=== PATIENT | male | born 1940 | race Caucasian/White ===

== ENCOUNTER 2024-04-30 21:43 | Inpatient (IN) | payer MEDICARE, OTHER, SELFPAY ==
[2024-04-30 15:28] VITALS: BP 138/68
[2024-04-30 16:05] LABS: % Basophils 0.3 % (0-2); % Eosinophils 5.5 % (0-6); % Immature Granulocytes 0.3 % (0-0.5); % Lymphocytes 24.1 % (20.5-51.1); % Monocytes 11.1 % (1.7-9.3); % Neutrophils 58.7 % (42.2-75.2); Absolute Eosinophils 0.3 10^3/uL (0-0.7); Absolute Lymphocytes 1.5 10^3/uL (1.2-3.4); Absolute Monocytes 0.7 10^3/uL (0.1-0.6); Absolute Neutrophils 3.6 10^3/uL (1.4-6.5); Hematocrit 25.8 % (39.0-52.0); Hemoglobin 9.5 g/dL (13.0-18.0); Mean Corp Hgb Conc. 36.8 g/dL (33.0-37.0); Mean Corpuscular Hgb 32.9 pg (27.0-31.0); Mean Corpuscular Volume 89.3 fL (80.0-94.0); Mean Platelet Volume 8.1 fL (7.4-10.4); Nucleated Red Blood Cells % 0 % (-); Platelet Count 166 10^3/uL (130-400); Red Blood Cell Count 2.89 10^6/uL (4.70-6.10); Red Cell Dist. Width 15.1 % (11.5-14.5); White Blood Cell Count 6.1 10^3/uL (4.8-10.8)
[2024-04-30 16:20] LABS: COVID-19 Antigen Negative (Negative)
[2024-04-30 16:21] LABS: ALT (SGPT) 13 U/L (0-50); AST (SGOT) 24 U/L (17-59); Albumin 4.1 g/dl (3.5-5.0); Alkaline Phosphatase 74 U/L (38-126); Blood Urea Nitrogen 27 mg/dl (9-20); Carbon Dioxide 24 mmol/L (22-30); Chloride 90 mmol/L (98-107); Glucose 116 mg/dl (70-99); Potassium 5.4 mmol/L (3.5-5.1); Sodium 125 mmol/L (135-145); Total Bilirubin 1.2 mg/dl (0.2-1.3); eGFR 39.02
[2024-04-30 16:35] LABS: NT-proBNP 3440 pg/ml; Troponin I 0.016 ng/ml
--- NOTE | 2024-04-30 18:30 | ED.GENMED ---
History of Present Illness
General
Chief Complaint: Weakness
Source: patient
Exam Limitations: none
Time Seen by Provider: 04/30/24 18:01
History of Present Illness
History of Present Illness:
83-year-old male with history of CHF, A-fib presents in referral from After noticing outpatient labs were abnormal. Patient was volume overloaded and they doubled his torsemide from 20 daily to 40 daily. He has been on this. They noticed his
weight going down symptoms improving however labs were drawn and he was told they were abnormal. Family was told his sodium was 121 earlier this week. No prior history of hyponatremia. Never been admitted to this hospital. In general he notes
weakness. He notes shortness of breath. He describes orthopnea. Daughter who does most of the translating states that his legs have increasing swelling since he stopped the double dose of torsemide.
Phy Exam
Physical Exam
Physical Exam:
General: Well-appearing male no acute respiratory distress
HEENT: Atraumatic
Heart: Regular rate and rhythm no murmurs
Lungs: Subtle wheeze at the base
Abdomen is soft
Extremities: Diffuse edema
Skin is warm no rash
Course
Orders/Labs/Results
Orders:
Orders
04/30/24 15:42
EKG [Electrocardiogram (*1)] Urgent
Reason for Study: Chest Pain
04/30/24 15:43
EKG- Treatment ONCE
04/30/24 15:54
CBC/With Diff [Complete Blood Count/With Diff] Urgent
CMP [Comprehensive Metabolic Panel] Urgent
COVID-19 Antigen Urgent
Source: Nasal Swab
Pro-BNP [NT-proBNP] Urgent
Serum Osmolality Urgent
Comment: ADD ON
Troponin I Urgent
04/30/24 18:24
CR Chest - 2 Views Urgent
Comment:
Reason For Exam: sob
04/30/24 18:34
Add On- LAB Urgent
Tests Added?: serum osmoality
04/30/24 20:26
Urine Sodium Urgent
Date Specimen was Collected: 04/30/24
Time Specimen was Collected: 20:23
Abnormal Lab Results
04/30/24
15:54
RBC 2.89 L 10^6/uL
(4.70-6.10)
Hgb 9.5 L g/dL
(13.0-18.0)
Hct 25.8 L %
(39.0-52.0)
MCH 32.9 H pg
(27.0-31.0)
RDW 15.1 H %
(11.5-14.5)
Absolute Monos (auto) 0.7 H 10^3/uL
(0.1-0.6)
Monocytes % 11.1 H %
(1.7-9.3)
Sodium 125 L mmol/L
(135-145)
Potassium 5.4 H mmol/L
(3.5-5.1)
Chloride 90 L mmol/L
(98-107)
BUN 27 H mg/dl
(9-20)
Creatinine 1.7 H mg/dL
(0.7-1.3)
Glucose 116 H mg/dl
(70-99)
Serum Osmolality 262 L mOsm/kg
(275-300)
04/30/24 15:54
04/30/24 15:54
Vital Signs
Initial and Last Documented VS:
Initial Vital Signs
Temp Pulse Resp BP Pulse Ox
98.2 F 68 19 138/68 99
04/30/24 15:28 04/30/24 15:28 04/30/24 15:28 04/30/24 15:28 04/30/24 15:28
Last Documented Vital Signs
Temp Pulse Resp BP Pulse Ox
98.2 F 68 19 138/68 99
04/30/24 15:28 04/30/24 15:28 04/30/24 15:28 04/30/24 15:28 04/30/24 15:28
MDM/Problems Addressed
Differential Diagnosis Includes:
Patient with fatigue shortness of breath and was told he had abnormal laboratory findings. Patient does appear volume overloaded. Question possible CHF. Sodium here is 125. No prior history of hyponatremia per the daughter. Will get chest
x-ray. Patient will need admission to hospital for volume overload status likely due to CHF and hyponatremia
Chronic conditions affecting care:
CKD
*Critical Care Note
Total Time (30-74mins, 75-104mins- exclusive of procedures): Not Applicable
ED Attending Note
-
Portions of this chart may have been created with voice recognition software.� Occasional wrong word or��sound alike� substitutions may have occurred due to the inherent limitations of voice recognition software.
Discharge Plan
Departure
Patient Disposition: Admit
Date of Disposition: 04/30/24
Time of Disposition: 20:38
Admit to: Telemetry
Presentation/result/management discussed w/ accepting MD/DO: Hospitalist
Discharge Problem:
Hyponatremia
Prescriptions:
No Action
hydralazine 10 mg tablet
20 mg PO BIDPRN PRN (Reason: sbp > 160)
torsemide 20 mg tablet
20 mg PO DAILY
ondansetron HCl 4 mg tablet
4 mg PO BIDPRN PRN (Reason: nausea/vomiting)
amlodipine 5 mg tablet
5 mg PO DAILY
Procrit 40,000 unit/mL solution
40,000 unit SC .Q2-3WEEKS
pantoprazole 40 mg tablet,delayed release (DR/EC)
40 mg PO DAILY
metoprolol succinate 25 mg tablet extended release 24 hr
25 mg PO BID
ketoconazole 2 % cream
1 applic TOPICAL BIDPRN PRN (Reason: feet)
fluticasone propionate 50 mcg/actuation spray,suspension
2 spray INTRANASAL BID
doxazosin 2 mg tablet
2 mg PO QPM
cholecalciferol (vitamin D3) [Vitamin D3] 25 mcg (1,000 unit) capsule
50 mcg PO DAILY
olmesartan 20 mg tablet
20 mg PO QPM
rosuvastatin 5 mg tablet
5 mg PO QPM
Atrovent HFA 17 mcg/actuation HFA aerosol inhaler
2 puff INHALATION R QPM
ranolazine 500 mg tablet extended release 12 hr
1,000 mg PO BID
Eliquis 2.5 mg tablet
2.5 mg PO BID
diclofenac sodium 1 % Gel
1 ea TOPICAL DAILYPRN PRN (Reason: topical pain)
Cranberry-Dmannose
1 tab PO QPM
sennosides [senna] 8.6 mg Tablet
17.2 mg PO HS
polyethylene glycol 3350 [Miralax] 17 gram Powder In Packet
17 g PO DAILYPRN PRN (Reason: constipation)
cyanocobalamin (vitamin B-12) 1,000 mcg Tablet
1,000 mcg PO DAILY
magnesium 200 mg Tablet
300 mg PO HS
melatonin 5 mg Tablet
5 mg PO HS
Soothe Lubricant 0.6-0.6 % Dropperette
1 drp ophthalmic (eye) BID
Rx Instructions:
both eyes
Walls Laxative
1 dose PO DAILYPRN PRN (Reason: constipation)
Referrals:
Vivian Wolfe MD [Family Provider] -
Interventions
Interventions:
*Risk Screen - Suicide Last Done: 04/30/24 18:00
*General Assessment Last Done: 04/30/24 18:00
*Neglect/Abuse Screening Last Done: 04/30/24 18:00
ED- Cardiac Assessment Last Done: 04/30/24 18:00
ED- Neurological Assessment Last Done: 04/30/24 18:00
ED- Pulmonary Assessment Last Done: 04/30/24 18:00
Discharge Date and Time
Print Language: UPPER SORBIAN
[2024-04-30 19:15] LABS: Osmolality Serum 262 mOsm/kg (275-300)
--- NOTE | 2024-04-30 20:48 | HPS.HSE ---
Addendum entered and electronically signed by Ernesto Rivera DO 04/30/24 22:15:
Patient seen and examined independently. Agree with findings and plan as set forth by VIRGINIA Kohli.
Patient is an 83y M with PMH significant for A-Fib, CHF and CKD who presents to ED at the direction of his Working Second Hand for evaluation of abnormal outpatient labs. History obtained from patient and family with family serving as print cutter.
Patient noted to have significant weight gain, evident edema, abdominal distention and orthopnea several weeks ago. He has been followed by Cardiology and Nephrology as an outpatient. One week ago - he took double doses of torsemide (40mg) -.
Daughter notes that he did lose weight during that span; however, he quickly regained all of this weight once he returned to his usual regimen.
Patient had outpatient labs done a few days ago for routine follow-up. Today they were advised by Cardiology to present immediately to the hospital - primarily due to low sodium.
Daughter states that his sodium is chronically in the low 130s. With recent weight gain and edema - it had been 127. On most recent labs it was 121 which prompted recommendation he present to the ED.
Daughter notes that patient has had N/V, dizziness and generalized weakness recently.
Ass:
Acute on Chronic HFpEF
Hypervolemic Hyponatremia
CKD III
Anemia of Chronic Disease
Benign Hypertension
ASCVD
Paroxysmal Atrial Fibrillation
GERD
BPH
Obesity
History of Renal Cell Carcinoma
Plan:
Admit for further evaluation and treatment.
Patient clearly volume overloaded with edema, abdominal distention, orthopnea, etc.
Change diuretic to IV route / BID for now and follow I/Os, daily weights, etc.
Monitor for changes in renal function during diuresis.
Cardiology / Nephrology evaluations during his stay.
Update Echo.
Follow for improvement in Na levels coincident with effective diuresis.
Continue other usual outpatient medications including Eliquis, metoprolol, etc.
Adjust meds as needed to allow effective diuresis / obtain adequate BP control / avoid renal injury or impairment.
Original Note:
Family Physician
-
Family Physician: Vivian Wolfe
Chief Complaint
-
sob
LE edema
weight gain
History of Present Illness
, atrial fib, CKD, chornic venous insufficiency, DVT, ileus, CAD, HTN,prostate ca, kidney ca, presented to us with worsening sob, orthopnea. he is not sleeping due to sob. gained 10-12lbs in one month. he gets blood works every two weeks. he was
noted to have low sodium. he takes torsemide 20mg every day. he was asked to take 40mg and 20mg on alternating days for past one week. his symptoms persisted. he was evaluated by cardiology, who recommended hospitalization. denied BATRES, but
complained of dizzy. denied chest pain. denied fever, chills, runny nose, congestion. but noted to have worsening of dry cough this week. stated abdominal discomfort and swelling. denied n/v/d. patient has suprapubic cath with decreased urine
output.
noted elevated BNP. chest x ray with no acute findings. na 125. Lasix in ER. admitting for further management.
Medical History
Past Medical History
Past Medical History: Reports Other
Additional Past Medical History:
History of prostate cancer
DVT
Chronic kidney disease stage IIIb
Diastolic heart failure
Coronary artery disease
Hypertension
GI bleed
Ileus
Gallstones
Diverticulosis
Hiatal hernia
H. pylori
Past Surgical History: Reports Other
Additional Past Surgical History:
Cardiac stent
Hernia repair
Nasal polypectomy
Appendectomy
Social History
Tobacco: Non-smoker
Alcohol: None
Drug: None
Personal:
Living: With Family
Family History
Family History: Not pertinent
Allergies / Home Medications
Allergies reflects when Allergies were last updated in [employer].
Home Medications with original date entered in [facility] [employer] [facility]
Allergy/Medication List:
Allergies
Allergy/AdvReac Type Severity Reaction Status Date / Time
No Known Allergies Allergy Verified 04/30/24 15:42
Home Medications
Cranberry-Dmannose 1 tab PO QPM 04/30/24
Walls Laxative 1 dose PO DAILYPRN PRN constipation 04/30/24
amlodipine 5 mg tablet 5 mg PO DAILY 04/30/24
apixaban 2.5 mg tablet (Eliquis) 2.5 mg PO BID 04/30/24
cholecalciferol (vitamin D3) 25 mcg (1,000 unit) capsule (Vitamin D3) 50 mcg PO DAILY 04/30/24
cyanocobalamin (vitamin B-12) 1,000 mcg tablet 1,000 mcg PO DAILY 04/30/24
diclofenac sodium 1 % topical gel 1 ea topical DAILYPRN PRN topical pain 04/30/24
doxazosin 2 mg tablet 2 mg PO QPM 04/30/24
epoetin gila 40,000 unit/mL injection solution (Procrit) 40,000 unit SC .Q2-3WEEKS 04/30/24
fluticasone propionate 50 mcg/actuation nasal spray,suspension 2 spray intranasal BID 04/30/24
hydralazine 10 mg tablet 20 mg PO BIDPRN PRN sbp > 160 04/30/24
ipratropium bromide 17 mcg/actuation HFA aerosol inhaler (Atrovent HFA) 2 puff inhalation R QPM 04/30/24
ketoconazole 2 % topical cream 1 applic topical BIDPRN PRN feet 04/30/24
magnesium 200 mg tablet 300 mg PO HS 04/30/24
melatonin 5 mg tablet 5 mg PO HS 04/30/24
metoprolol succinate 25 mg tablet,extended release 24 hr 25 mg PO BID 04/30/24
olmesartan 20 mg tablet 20 mg PO QPM 04/30/24
ondansetron HCl 4 mg tablet 4 mg PO BIDPRN PRN nausea/vomiting 04/30/24
pantoprazole 40 mg tablet,delayed release 40 mg PO DAILY 04/30/24
polyethylene glycol 3350 17 gram oral powder packet (Miralax) 17 g PO DAILYPRN PRN constipation 04/30/24
propylene glycol-glycerin 0.6 %-0.6 % eye drops in a dropperette (Soothe Lubricant) 1 drp ophthalmic (eye) BID 04/30/24
ranolazine 500 mg tablet,extended release,12 hr 1,000 mg PO BID 04/30/24
rosuvastatin 5 mg tablet 5 mg PO QPM 04/30/24
sennosides 8.6 mg tablet (senna) 17.2 mg PO HS 04/30/24
torsemide 20 mg tablet 20 mg PO DAILY 04/30/24
Review of Systems
-
Constitutional: Reports Weight Gain and Fatigue
EENT: Reports No Symptoms
Respiratory: Reports Cough and Trouble Breathing
Cardiac: Reports No Symptoms
Abdomen/GI: Reports Other (Distended abdominal)
: Reports Suprapubic Tube
Musculoskeletal: Reports Edema (Bilateral lower extremities)
Skin: Reports No Symptoms
Neurological: Reports Dizzy and Weakness
Endocrine: Reports No Symptoms
Hematologic/Lymphatic: Reports No Symptoms
Psych: Reports No Symptoms
Physical Exam
Vital Signs
Vital Signs
Temp Pulse Resp BP Pulse Ox
98.2 F 68 19 138/68 99
04/30/24 15:28 04/30/24 15:28 04/30/24 15:28 04/30/24 15:28 04/30/24 15:28
Physical Exam
General: Well Developed, Well Nourished and No Apparent Distress
HEENT: NormoCephalic, Moist mucous membranes and Atraumatic
Respiratory: Wheezes
Cardiac: S1/S2, Regular Rhythm and Peripheral Edema (Bilateral lower extremities edema, abdominal swelling); No Murmur or Rub
GI: Soft, Non Tender, Normal Bowel Sounds and Distended; No Organomegaly
Rectal: Deferred by Provider
Genito-urinary: Suprapubic Tube
Musculoskeletal: No Clubbing, No Cyanosis and Other (Bilateral lower extremities edema, swelling of abdomen)
Skin: No Rash
Neuro: AO x 3 and Nonfocal/grossly intact
Laboratory Results
-
04/30/24 15:54
04/30/24 15:54
Laboratory Results
Total Bilirubin 1.2 mg/dl (0.2-1.3) 04/30/24 15:54
AST 24 U/L (17-59) 04/30/24 15:54
ALT 13 U/L (0-50) 04/30/24 15:54
Alkaline Phosphatase 74 U/L (38-126) 04/30/24 15:54
Troponin I 0.016 ng/ml 04/30/24 15:54
Data Reviewed
-
Diagnostic Radiology: Report Reviewed by me
Lab Data: Labs Reviewed by me
Impression/Plan
-
#hyponatremia/hyperkalemia/i likely hypervolemic
# Chronic kidney disease stage IIIb
-na 125, k 5.4,cr 1.7
-fluid restriction
-diuretics
-BMp in a.m.
-serum osm 262
-urine na pending
-Nephrology consulted
#diastolic HF exacerbation
-Lasix 40 Mg IV twice a day
-strict I &O
-daily weight
-fluid restriction
-chest x ray with No acute cardiopulmonary process.
-[id number]
-Obtain echo
-Cardiology consulted
# Anemia of chronic disease
-Patient is receives Procrit as outpatient
-Hemoglobin 9.5
-No active bleeding
-Continue to monitor
# Essential hypertension
# History of coronary artery disease/cardiac stents
-Blood pressure stable
-Norvasc continued
-Ranexa continued
# Hyperlipidemia
-Statin continued
# Paroxysmal A-fib
-EKG with sinus rhythm with first-degree AV block, incomplete left bundle branch block
-Eliquis continued
-Metoprolol continued
# GERD
-PPI continued
# BPH
-Doxazosin continued
#hxt of kidney ca
-monitored by [facility].
# DVT prophylaxis
-Eliquis
# CODE STATUS
-DNR
[2024-04-30 21:00] VITALS: BP 120/55
[2024-04-30 21:35] LABS: Urine Sodium 41 mmol/L (30-90)
[2024-04-30] MEDS: LASIX 40 MG IV (21:37)
[2024-04-30 22:00] VITALS: BP 117/63
[2024-04-30 23:00] VITALS: BP 130/69
--- NOTE | 2024-04-30 23:00 | PTCARENOTE ---
Pt arrived to room 432-01. Pt AAOx3, VSS. Pt Kyrgyz speaking, daughter in room. Pt no c/o pain, SOB. Pt oriented to room, call rao placed within reach.
[2024-04-30] MEDS: MELATONIN 5 MG PO (23:26)
[2024-04-30] MEDS: SENOKOT 17.2 MG PO (23:26)
[2024-04-30 23:37] VITALS: BMI 34.0
[2024-05-01] VITALS (8 sets, daily range): BP systolic 110–135; BP diastolic 45–68; PULSE 56; O2SAT 97–98; BMI 33.2
[2024-05-01] MEDS: ATROVENT NEBULES INH ×2 (00:01→19:57)
[2024-05-01] MEDS: ATROVENT NEBULES 0.5 MG INH (00:29)
--- NOTE | 2024-05-01 07:39 | W.PN.HOSP.TC ---
Today's Communication/Plan
-
cont diuresis
daily weights I/O
trend Na
fluid restriction
Assessment / Plan
Assessment / Plan
Physical Exam
General: No acute distress. Appears comfortable at this time. Obese
HEENT: NormoCephalic, Moist mucous membranes and Atraumatic
Respiratory: Clear to auscultation
Cardiac: S1/S2, Regular Rhythm and Peripheral Edema (Bilateral lower extremities edema, abdominal swelling); No Murmur or Rub
GI: Soft, Non Tender, Normal Bowel Sounds and Distended; No Organomegaly
Genito-urinary: Suprapubic Tube
Musculoskeletal: Bilateral lower extremities edema
Skin: No Rash
Neuro: AO x 3 and Nonfocal/grossly intact
#hyponatremia/hyperkalemia/i likely hypervolemic
# Chronic kidney disease stage IIIb
-fluid restriction
-diuretics
#diastolic HF exacerbation
-Lasix 40 Mg IV twice a day
-strict I &O
-daily weight
-fluid restriction
-chest x ray with No acute cardiopulmonary process.
-[id number]
-ECHO appreciated
-Cardiology consult appreciated
# Anemia of chronic disease
-Patient is receives Procrit as outpatient
-H&H stable
-No active bleeding
-Continue to monitor
# Essential hypertension
# History of coronary artery disease/cardiac stents
-Blood pressure stable
-Norvasc continued
-Ranexa continued
# Hyperlipidemia
-Statin continued
# Paroxysmal A-fib
-EKG with sinus rhythm with first-degree AV block, incomplete left bundle branch block
-Eliquis continued
-Metoprolol continued
# GERD
-PPI continued
# BPH
-Doxazosin continued
#hxt of kidney ca
-monitored by [facility].
# DVT prophylaxis
-Eliquis
# CODE STATUS
-DNR
Daughter Mita updated
I spent a total of 50 minutes with the patient or on the floor. More than 50% of this time involved counseling and coordination of care.
Anticipated Discharge: 24 - 48 hours
Subjective/Interval History
-
Date of Service: May 01, 2024
No acute distress. Appears comfortable at this time. Wt loss noted since start of IV diuresis. Reports constipation. Interviewed with language line knife grinder [place]
Objective Data
-
Labs:
Laboratory Results
05/01/24
06:45
Sodium Pending
Potassium Pending
Chloride Pending
Carbon Dioxide Pending
BUN Pending
Creatinine Pending
Glucose Pending
Calcium Pending
Total Bilirubin Pending
AST Pending
ALT Pending
Alkaline Phosphatase Pending
Vital Signs:
Vital Signs
Temp Pulse Resp BP Pulse Ox
98.0 F 58 18 119/52 99
05/01/24 03:50 05/01/24 03:50 05/01/24 03:50 05/01/24 03:50 05/01/24 03:50
I&O
04/30/24 05/01/24 05/02/24
06:59 06:59 06:59
Intake Total 240 / 240
Output Total 1500 / 1500
Balance -1260 / -1260
[2024-05-01] MEDS: LASIX 40 MG IV ×2 (08:49→17:29)
[2024-05-01] MEDS: REFRESH EYE DROPS (PF) 1 DROPS OPHTH ×2 (08:50→21:05)
[2024-05-01] MEDS: PROTONIX 40 MG PO (08:50)
[2024-05-01] MEDS: NORVASC 5 MG PO (08:50)
[2024-05-01] MEDS: RANEXA EXTENDED RELEASE 1000 MG PO ×2 (08:50→21:05)
[2024-05-01] MEDS: TOPROL XL 25 MG PO ×2 (08:51→21:05)
[2024-05-01] MEDS: ELIQUIS 2.5 MG PO ×2 (08:51→21:04)
[2024-05-01 08:53] LABS: ALT (SGPT) 11 U/L (0-50); AST (SGOT) 21 U/L (17-59); Albumin 3.4 g/dl (3.5-5.0); Alkaline Phosphatase 62 U/L (38-126); Blood Urea Nitrogen 26 mg/dl (9-20); Calcium 8.9 mg/dl (8.4-10.2); Carbon Dioxide 26 mmol/L (22-30); Chloride 92 mmol/L (98-107); Direct Bilirubin 0.2 mg/dl (0.0-0.4); Estimated Creatinine Clearance 29 ml/min; Glucose 108 mg/dl (70-99); HDL Cholesterol 41 mg/dl; LDL Cholesterol, Calculated 58 mg/dl; Magnesium 2.4 mg/dl (1.6-2.3); Potassium 4.7 mmol/L (3.5-5.1); Sodium 128 mmol/L (135-145); Total Cholesterol 116 mg/dl (50-199); Total Protein 6.1 g/dl (6.3-8.2); Triglyceride 85 mg/dl (10-149); Very Low Density Lipoprotein 17 mg/dl (0-30); eGFR 36.43
[2024-05-01 09:19] LABS: TSH Reflex To Free T4 3.28 uIU/ml (0.47-4.68)
--- NOTE | 2024-05-01 10:56 | CON.CAR ---
Addendum entered and electronically signed by Lashell Plata DO 05/01/24 14:10:
I saw and examined the patient.
The Support Specialist's note was reviewed and I agree with the note.
Comment: Patient seen and examined with cardiac PA. Aden is an 83 year old male, [id number], with PMH of CAD w/ prior LCx stenting, chronic HFpEF, paroxysmal atrial fibrillation, HTN, HLD, CKD, GERD, and prostate cancer who presented to
[facility] for evaluation after being seen in the cardiology office 04/30/2024. He was seen for evaluation of worsening SOB, edema, and weight gain. He had recently been placed on lower dose of torsemide when his symptoms started developing. In the office.
there was concern that he was in acute heart failure and he was referred to the ER for further workup and management. In ER, he was found to have elevated proBNP and given worsening symptoms consistent with acute heart failure, he was admitted and
started on IV lasix. Cardiology consulted for evaluation.
General: No acute distress, AAOX3
Heart: Regular, positive S1/S2, 2/6 SM
Lungs: CTA b/l, negative wheezes/rales/rhonchi
Abd: Positive BS, NT/ND, neg rebound/rigidity/guarding
Ext: +edema
Plan:
-Presented from cardiology office with acute heart failure exacerbation.
-Diuresing with IV lasix 40mg BID.
-Weight down to 187 lbs, down 4lbs this admission.
-Creat overall stable at 1.8. Continue to follow with diuresis.
-EF preserved by prior echo at outside hospital as noted above. Repeat echo this admission.
-Known h/o CAD w/ prior stenting. Troponin negative.
-EKG reviewed, SR with 1st degree AV block.
-h/o paroxysmal atrial fibrillation noted. HR stable. Continue Eliquis for anticoagulation.
-Continue home amlodipine, doxazosin, Toprol, and Ranexa.
-Continue Crestor 5mg daily. LDL 58.
-Hyponatremia noted. Na up to 128 04/30.
Original Note:
Consultation
Consultation Request
Date/Time Consultation Requested: 04/30/2024
Date/Time Consultation Performed: 05/01/2024
Requesting Provider: Dr. Rivera
Performing Provider: Dr. Plata
Reason for Consultation: CHF
Medical History
-
History of Present Illness:
HPI: Aden is an 83 year old male with PMH of CAD w/ prior LCx stenting, chronic HFpEF, paroxysmal atrial fibrillation, HTN, HLD, CKD, GERD, and prostate cancer who presented to [facility] for evaluation after being seen in the cardiology office 04/30/2024.
He was seen for evaluation of worsening SOB, edema, and weight gain. He had recently been placed on lower dose of torsemide when his symptoms started developing. In the office. there was concern that he was in acute heart failure and he was referred
to the ER for further workup and management. In ER, he was found to have elevated proBNP and given worsening symptoms consistent with acute heart failure, he was admitted and started on IV lasix. Cardiology consulted for evaluation. He continues to
feel somewhat poorly this morning, but remains on room air.
PMH:
CAD
BMS to LCx 2011
Chronically occluded mid RCA by cath 01/14/2019
Chronic HFpEF
Paroxysmal atrial fibrillation
Chronic Eliquis anticoagulation
HTN
HLD
CKD 3b
Chronic anemia
GERD
h/o prostate cancer s/p XRT
Chronic suprapubic catheter
Past Medical History
Past Medical History: Other (In HPI)
Past Surgical History: Appendectomy, Cardiac (BMS to ) and Other (hernia repair, sinus surgery)
Social History
Tobacco: Non-Smoker
Alcohol: None
Drug: None
Personal:
Living: With Family
Employment: Retired
Family History
Family History: Reviewed & Not Pertinent
Allergies / Home Medications
Allergy/AdvReac Type Severity Reaction Status Date / Time
No Known Allergies Allergy Verified 04/30/24 15:42
�Medication �Instructions �Recorded �Confirmed �Type
Cranberry-Dmannose 1 tab PO QPM Supplement 04/30/24 04/30/24 History
Walls Laxative 1 dose PO DAILYPRN PRN constipation 04/30/24 04/30/24 History
amlodipine 5 mg tablet 5 mg PO DAILY Blood Pressure 04/30/24 04/30/24 History
apixaban 2.5 mg tablet (Eliquis) 2.5 mg PO BID Blood Clot 04/30/24 04/30/24 History
Prevention/Tx
cholecalciferol (vitamin D3) 25 50 mcg PO DAILY Supplement 04/30/24 04/30/24 History
mcg (1,000 unit) capsule (Vitamin
D3)
cyanocobalamin (vitamin B-12) 1,000 mcg PO DAILY Supplement 04/30/24 04/30/24 History
1,000 mcg tablet
diclofenac sodium 1 % topical gel 1 ea topical DAILYPRN PRN topical 04/30/24 04/30/24 History
pain
doxazosin 2 mg tablet 2 mg PO QPM BPH 04/30/24 04/30/24 History
epoetin gila 40,000 unit/mL 40,000 unit SC .Q2-3WEEKS RED 04/30/24 04/30/24 History
injection solution (Procrit) BLOOD CELLS
fluticasone propionate 50 2 spray intranasal BID 04/30/24 04/30/24 History
mcg/actuation nasal Lung/Breathing Issues
spray,suspension
hydralazine 10 mg tablet 20 mg PO BIDPRN PRN sbp > 160 04/30/24 04/30/24 History
ipratropium bromide 17 2 puff inhalation R QPM 04/30/24 04/30/24 History
mcg/actuation HFA aerosol inhaler Lung/Breathing Issues
(Atrovent HFA)
ketoconazole 2 % topical cream 1 applic topical BIDPRN PRN feet 04/30/24 04/30/24 History
magnesium 200 mg tablet 300 mg PO HS Electrolyte Repletion 04/30/24 04/30/24 History
melatonin 5 mg tablet 5 mg PO HS Sleep 04/30/24 04/30/24 History
metoprolol succinate 25 mg 25 mg PO BID Heart Failure 04/30/24 04/30/24 History
tablet,extended release 24 hr
olmesartan 20 mg tablet 20 mg PO QPM Blood Pressure 04/30/24 04/30/24 History
ondansetron HCl 4 mg tablet 4 mg PO BIDPRN PRN nausea/vomiting 04/30/24 04/30/24 History
pantoprazole 40 mg tablet,delayed 40 mg PO DAILY Gastrointestinal 04/30/24 04/30/24 History
release Issue
polyethylene glycol 3350 17 gram 17 g PO DAILYPRN PRN constipation 04/30/24 04/30/24 History
oral powder packet (Miralax)
propylene glycol-glycerin 0.6 1 drp ophthalmic (eye) BID Eye 04/30/24 04/30/24 History
%-0.6 % eye drops in a dropperette Condition
(Soothe Lubricant)
ranolazine 500 mg tablet,extended 1,000 mg PO BID chronic chest pain 04/30/24 04/30/24 History
release,12 hr
rosuvastatin 5 mg tablet 5 mg PO QPM High Cholesterol 04/30/24 04/30/24 History
sennosides 8.6 mg tablet (senna) 17.2 mg PO HS Constipation 04/30/24 04/30/24 History
torsemide 20 mg tablet 20 mg PO DAILY Blood Pressure 04/30/24 04/30/24 History
Review of Systems
-
History Source: Patient
All other systems: Negative unless noted
Physical Exam
Vital Signs
Temp Pulse Resp BP Pulse Ox
97.8 F 57 16 127/50 98
05/01/24 07:45 05/01/24 08:49 05/01/24 07:45 05/01/24 08:49 05/01/24 07:45
Lab Results
04/30/24 15:54
05/01/24 06:45
Troponin I 0.016 ng/ml 04/30/24 15:54
Ghd-A-Lbteqxqjqek Pept 3440 pg/ml 04/30/24 15:54
Physical Exam
General: Well Developed, Well Nourished and No Apparent Distress
HEENT: Normocephalic, Anicteric and Moist Mucous Membranes
Respiratory: Clear and Non Labored Respirations
Cardiac: S1/S2 and Regular Rhythm
Musculoskeletal: No Clubbing, No Cyanosis and No Edema
Skin: Warm and Dry
Neuro: AO x 3 and Nonfocal/Grossly Intact
Psych: Calm
Impression / Plan
-
PCP: Dr. Wolfe
Roustabout Supervisor: Dr. BE Diaz
Impression:
Presented with SOB, weight gain
Acute on chronic HFpEF
Hyponatremia
CAD
BMS to LCx 2011
Chronically occluded mid RCA by cath 01/14/2019
Paroxysmal atrial fibrillation
Chronic Eliquis anticoagulation
HTN
HLD
CKD 3b
Chronic anemia
GERD
h/o prostate cancer s/p XRT
Chronic suprapubic catheter
Echo 02/07/2023: EF 65%, mod cLVH, grade I DD, mild MR, trace TR
Echo 05/01/2024: Study pending
Plan:
-Presented from cardiology office with acute heart failure exacerbation.
-Diuresing with IV lasix 40mg BID.
-Weight down to 187 lbs, down 4lbs this admission.
-Creat overall stable at 1.8. Continue to follow with diuresis.
-EF preserved by prior echo at outside hospital as noted above. Repeat echo this admission.
-Known h/o CAD w/ prior stenting. Troponin negative.
-EKG reviewed, SR with 1st degree AV block.
-h/o paroxysmal atrial fibrillation noted. HR stable. Continue Eliquis for anticoagulation.
-Continue home amlodipine, doxazosin, Toprol, and Ranexa.
-Continue Crestor 5mg daily. LDL 58.
-Hyponatremia noted. Na up to 128 04/30.
HPI: Aden is an 83 year old male with PMH of CAD w/ prior LCx stenting, chronic HFpEF, paroxysmal atrial fibrillation, HTN, HLD, CKD, GERD, and prostate cancer who presented to [facility] for evaluation after being seen in the cardiology office 04/30/2024.
He was seen for evaluation of worsening SOB, edema, and weight gain. He had recently been placed on lower dose of torsemide when his symptoms started developing. In the office. there was concern that he was in acute heart failure and he was referred
to the ER for further workup and management. In ER, he was found to have elevated proBNP and given worsening symptoms consistent with acute heart failure, he was admitted and started on IV lasix. Cardiology consulted for evaluation. He continues to
feel somewhat poorly this morning, but remains on room air.
Data Reviewed
-
EKG: Tracing Personally Visualized and interpreted
Radiology: Report Reviewed by me
Labs: Labs Reviewed by me
Old Records: Reviewed
[2024-05-01] MEDS: MIRALAX 17 GRAMS PO (14:21)
--- NOTE | 2024-05-01 16:52 | CM ---
manager school reviewed patient's chart and met with patient and spoke with daughter by phone, patient lives with daughter in a 2 story home, patient is independent with adl's and uses a walker ambulation, patient daughter assists in home, patient has
been set up with home care services from [facility], per patient's daughter.
Pharmacy: [facility]
PCP: Dr. Wolfe
Plan; Home with daughter when stable.
[2024-05-01] MEDS: CARDURA 2 MG PO (17:59)
[2024-05-01] MEDS: CRESTOR 5 MG PO (17:59)
[2024-05-01] MEDS: SENOKOT-S 1 TABLET PO (21:04)
[2024-05-01] MEDS: MELATONIN 5 MG PO (21:06)
[2024-05-02 03:00] VITALS: BP 124/51
[2024-05-02 07:00] VITALS: BP 123/49
[2024-05-02 07:15] LABS: Hematocrit 22.5 % (39.0-52.0); Hemoglobin 8.3 g/dL (13.0-18.0); Mean Corp Hgb Conc. 36.9 g/dL (33.0-37.0); Mean Corpuscular Hgb 33.7 pg (27.0-31.0); Mean Corpuscular Volume 91.5 fL (80.0-94.0); Mean Platelet Volume 8.4 fL (7.4-10.4); Platelet Count 143 10^3/uL (130-400); Red Blood Cell Count 2.46 10^6/uL (4.70-6.10); Red Cell Dist. Width 14.6 % (11.5-14.5)
[2024-05-02 07:20] VITALS: BMI 33.3
--- NOTE | 2024-05-02 07:36 | W.PN.HOSP.TC ---
Today's Communication/Plan
-
Hold diuresis
Nephro eval
monitor renal function
Patient's own med procrit per patient/family preference
Iron supplementation
Assessment / Plan
Assessment / Plan
Physical Exam
General: No acute distress. Appears comfortable at this time. Obese
HEENT: NormoCephalic, Moist mucous membranes and Atraumatic
Respiratory: Clear to auscultation
Cardiac: S1/S2, Regular Rhythm and Peripheral Edema (Bilateral lower extremities edema, abdominal swelling); No Murmur or Rub
GI: Soft, Non Tender, Normal Bowel Sounds and Distended; No Organomegaly
Genito-urinary: Suprapubic Tube
Musculoskeletal: Bilateral lower extremities edema
Skin: No Rash
Neuro: AO x 3 and Nonfocal/grossly intact
#hyponatremia/hyperkalemia/i likely hypervolemic
# Chronic kidney disease stage IIIb
-fluid restriction
-diuretics
#diastolic HF exacerbation
-Lasix 40 Mg IV twice a day on hold d/t progressive worsening kidney function. Nephro eval requested
-strict I &O
-daily weight
-fluid restriction
-chest x ray with No acute cardiopulmonary process.
-[id number]
-ECHO appreciated
-Cardiology consult appreciated
#Iron deficiency
# Anemia of chronic disease
-Receives Procrit as outpatient last dose 2 wks ago typically receives for Hgb<10 (patient to receive dose here, Patient's own med per patient/family preference)
-No active bleeding
-Monitor H&H
# Essential hypertension
# History of coronary artery disease/cardiac stents
-Blood pressure stable
-Norvasc continued
-Ranexa continued
# Hyperlipidemia
-Statin continued
# Paroxysmal A-fib
-EKG with sinus rhythm with first-degree AV block, incomplete left bundle branch block
-Eliquis continued
-Metoprolol continued
# GERD
-PPI continued
# BPH
-Doxazosin continued
#hxt of kidney ca
-monitored by [facility] oncology.
# DVT prophylaxis
-Eliquis
# CODE STATUS
-DNR
Daughter Mita updated
I spent a total of 50 minutes with the patient or on the floor. More than 50% of this time involved counseling and coordination of care.
Anticipated Discharge: 24 - 48 hours
Subjective/Interval History
-
Date of Service: May 02, 2024
no acute distress. appears comfortable at this time. stable respiratory status on room air however subjective feelings shortness of breath persists. Constipation noted resolved.
Objective Data
-
Labs:
Laboratory Results
05/02/24
06:22
WBC 5.0
Hgb 8.3 L
Hct 22.5 L
Plt Count 143
Sodium Pending
Potassium Pending
Chloride Pending
Carbon Dioxide Pending
BUN Pending
Creatinine Pending
Glucose Pending
Calcium Pending
Vital Signs:
Vital Signs
Temp Pulse Resp BP Pulse Ox
97.9 F 69 18 124/51 96
05/02/24 03:00 05/02/24 03:00 05/02/24 03:00 05/02/24 03:00 05/02/24 03:00
I&O
05/01/24 05/02/24 05/03/24
06:59 06:59 06:59
Intake Total 240 / 240 790 / 790 240 / 240
Output Total 1500 / 1500 1525 / 1525 550 / 550
Balance -1260 / -1260 -735 / -735 -310 / -310
[2024-05-02 07:42] LABS: Blood Urea Nitrogen 30 mg/dl (9-20); Calcium 8.8 mg/dl (8.4-10.2); Carbon Dioxide 27 mmol/L (22-30); Chloride 92 mmol/L (98-107); Estimated Creatinine Clearance 26 ml/min; Glucose 110 mg/dl (70-99); Magnesium 2.3 mg/dl (1.6-2.3); Phosphorus 4.5 mg/dl (2.5-4.5); Potassium 4.8 mmol/L (3.5-5.1); Sodium 129 mmol/L (135-145)
[2024-05-02] MEDS: PROTONIX PO (09:34)
[2024-05-02] MEDS: ELIQUIS 2.5 MG PO ×2 (09:35→20:43)
[2024-05-02] MEDS: NORVASC 5 MG PO (09:35)
[2024-05-02] MEDS: RANEXA EXTENDED RELEASE 1000 MG PO (09:36)
[2024-05-02] MEDS: REFRESH EYE DROPS (PF) 1 DROPS OPHTH ×2 (09:36→20:43)
[2024-05-02] MEDS: TOPROL XL 25 MG PO ×2 (09:36→20:43)
[2024-05-02] MEDS: SENOKOT-S 1 TABLET PO ×2 (09:36→20:43)
[2024-05-02] MEDS: MIRALAX PO (09:37)
[2024-05-02] MEDS: LASIX 40 MG IV (09:37)
--- NOTE | 2024-05-02 10:01 | W.PN.CARDCBS ---
Addendum entered and electronically signed by Lashell Plata DO 05/02/24 13:52:
I saw and examined the patient.
The Tub Puller's note was reviewed and I agree with the note.
Comment: Patient seen and examined with cardiac PA. Called patient's daughter Mita through [employer] and had her on speaker phone to discuss presentation, hospital events and plan. Patient continues to feel fatigued, dizzy and short of breath.
No significant improvement in edema. Denies chest pain or pressure.
General: No acute distress, AAOX3
Heart: Regular, positive S1/S2, 2/6 SM
Lungs: Bronchovesicular breath sounds, decreased at bases with fine crackles
Abd: Obese, positive BS, NT/ND, neg rebound/rigidity/guarding
Ext: ++edema; lower extremity scar
Plan:
Acute on chronic heart failure with preserved ejection fraction
-proBNP 3440
-Unfortunately no significant improvement in symptoms with IV diuresis over 24 hours. Weight is largely unchanged, down only 3 pounds from admission now with worsening renal function
-Will hold IV Lasix today although still volume overloaded. Pending renal response may need right heart catheterization next week
-Patient does follow with nephrology as an outpatient, Dr. Montgomery. Will ask nephrology to become involved this admission
-Goal-directed medical therapy at this point limited by renal function
Acute on chronic renal insufficiency with history of prostate cancer status post radiation and a chronic suprapubic catheter
-Creatinine worse with attempt of diuresis
-Nephrology consult
-Will hold Ranexa given renal contraindication
-Will change rosuvastatin to atorvastatin secondary to renal insufficiency
Hyponatremia
-May need Samsca; recommend nephrology consult
Normocytic anemia
- Procrit as an outpatient
-Abnormal iron studies. IV iron and transfusions recommended, defer to primary
-Monitor H&H closely
History of coronary artery disease with prior bare-metal stent to circumflex artery in 2012 and a TCO of the mid RCA in 2019
-No chest pain suggestive of angina
-Continue beta-allison, statin
History of paroxysmal atrial fibrillation currently in sinus rhythm
-Continue metoprolol and renally dosed Eliquis
Discussed with hospitalist
Daughter Mita in agreement with plan
Original Note:
Today's Communication / Plan
-
Hold lasix w/ creat up to 2.0.
follow volume status
Continue amlodipine, toprol, ranexa, and doxazosin
Impression / Plan
-
PCP: Dr. Wolfe
Photofinishing Laboratory Worker: Dr. BE Diaz
Impression:
Presented with SOB, weight gain
Acute on chronic HFpEF
Hyponatremia
CAD
BMS to LCx 2011
Chronically occluded mid RCA by cath 01/14/2019
Paroxysmal atrial fibrillation
Chronic Eliquis anticoagulation
HTN
HLD
CKD 3b
Chronic anemia
GERD
h/o prostate cancer s/p XRT
Chronic suprapubic catheter
Echo 02/07/2023: EF 65%, mod cLVH, grade I DD, mild MR, trace TR
Echo 05/01/2024: EF 55%, mild cLVH, mild with peak/mean gradients 16/8 mmHg, mild TR, estimated PAP 30-35 mmHg
Plan:
-Presented from cardiology office with acute heart failure exacerbation.
-Diuresing with IV lasix 40mg BID. Creat bumped to 2.0. Hold lasix.
-Weight 188lbs, which is up 1 lb from yesterday, however weight 05/01 was bed scale weight and weight 05/02 is standing scale.
-Overall, weight is down at least 3lbs from admission.
-Echo 05/01 noted EF 55% with mild as noted above.
-Known h/o CAD w/ prior stenting. Troponin negative.
-h/o paroxysmal atrial fibrillation noted. HR stable. Continue Eliquis for anticoagulation.
-Continue home amlodipine, doxazosin, Toprol, and Ranexa.
-Continue Crestor 5mg daily. LDL 58.
HPI: Aden is an 83 year old male with PMH of CAD w/ prior LCx stenting, chronic HFpEF, paroxysmal atrial fibrillation, HTN, HLD, CKD, GERD, and prostate cancer who presented to [facility] for evaluation after being seen in the cardiology office 04/30/2024.
He was seen for evaluation of worsening SOB, edema, and weight gain. He had recently been placed on lower dose of torsemide when his symptoms started developing. In the office. there was concern that he was in acute heart failure and he was referred
to the ER for further workup and management. In ER, he was found to have elevated proBNP and given worsening symptoms consistent with acute heart failure, he was admitted and started on IV lasix. Cardiology consulted for evaluation. He continues to
feel somewhat poorly this morning, but remains on room air.
Progress Note - Photofinishing Laboratory Worker
Subjective
Date of Service: May 02, 2024
Objective
Labs:
05/02/24 06:22
05/02/24 06:22
Labs
Hgb 8.3 g/dL (13.0-18.0) L 05/02/24 06:22
Hct 22.5 % (39.0-52.0) L 05/02/24 06:22
Plt Count 143 10^3/uL (130-400) 05/02/24 06:22
Sodium 129 mmol/L (135-145) L 05/02/24 06:22
Potassium 4.8 mmol/L (3.5-5.1) 05/02/24 06:22
BUN 30 mg/dl (9-20) H 05/02/24 06:22
Creatinine 2.0 mg/dL (0.7-1.3) H 05/02/24 06:22
Glucose 110 mg/dl (70-99) H 05/02/24 06:22
Troponins
04/30/24
15:54
Troponin I 0.016
Vital Signs and I&O:
Vital Signs
Temp Pulse Resp BP Pulse Ox
97.6 F 74 18 123/49 96
05/02/24 07:00 05/02/24 07:00 05/02/24 07:00 05/02/24 07:00 05/02/24 07:00
Vital Signs
Temp Pulse Resp BP Pulse Ox
97.6 F 74 18 123/49 96
05/02/24 07:00 05/02/24 07:00 05/02/24 07:00 05/02/24 07:00 05/02/24 07:00
Intake & Output
04/30/24 05/01/24 05/02/24 05/03/24
06:59 06:59 06:59 06:59
Intake Total 240 / 240 790 / 790 240 / 240
Output Total 1500 / 1500 1525 / 1525 550 / 550
Balance -1260 / -1260 -735 / -735 -310 / -310
Physical Exam
Physical Exam
GEN: No distress, awake, alert, oriented x3
HEENT: supple, anicteric, mmm
LUNGS: CTA b/l, no wheezes/rales
CV: Reg, S1/S2, 2/6 syst murmur
EXT: No clubbing or cyanosis. +1 edema b/l LE
NEURO: Gross non-focal
SKIN: Warm, dry, no rash
[2024-05-02] MEDS: NON-FORMULARY ITEM 1 UNIT PO (12:03)
[2024-05-02 12:59] LABS: Iron 41 ug/dl (49-181)
[2024-05-02 13:08] LABS: Percent Saturation 19 % (20-50); Total Iron Binding Capacity 206 ug/dl (261-462)
[2024-05-02 13:40] LABS: Hematocrit 24.9 % (39.0-52.0); Hemoglobin 9.1 g/dL (13.0-18.0)
--- NOTE | 2024-05-02 14:34 | W.CON.NEPH ---
Consultation
-
Date/Time Consultation Requested: 05/02/2024 13:45PM
Date/Time Consultation Performed: 05/02/2024 2:34PM
Requesting Provider: Sandip Vergara
Performing Provider: Dejah Vargas
Reason for Consultation: MARIE
Medical History
-
Chief Complaint: MARIE
History of Present Illness:
Mr. Franklin is an 83YOM with a PMH of CAD w/ prior LCx stenting, chronic HFpEF, pAfib, HTN, DLD, CKD (bl Cr around 1.5), GERD, and prostate cancer (s/p radiation and chronic suprapubic catheter), anemia (on procrit as outpatient) who presented
to the hospital for SOB. He was struggling with insomnia due to SOB. He gained 10-12 lbs. He was sent to the hospital by cardiology. They have attempted IV diuresis but with minimal response and Cr elevated to 2, so held today.
Nephrology is consulted for slightly worsening kidney function. Cr baseline appears to be around 1.4-1.7, elevated to 2 in the setting of diuresis. He does follow with Dr. Montgomery as an outpatient.
Past Medical History
History of prostate cancer (on tamsulosin)
DVT
Chronic kidney disease stage IIIb
Diastolic heart failure
Coronary artery disease
Hypertension ( on amlodipine, hydralazine)
GI bleed
Ileus
Gallstones
Diverticulosis
Hiatal hernia
H. pylori
Past Medical History: Other
Past Surgical History: Other (Cardiac stent Hernia repair Nasal polypectomy Appendectomy)
Social History
Tobacco: Non-Smoker
Alcohol: None
Drug: None
Personal:
Living: With Family
Family History
Family History: Not Pertinent
Allergies / Home Medications
Allergy/AdvReac Type Severity Reaction Status Date / Time
No Known Allergies Allergy Verified 04/30/24 15:42
�Medication �Instructions �Recorded �Confirmed �Type
Cranberry-Dmannose 1 tab PO QPM Supplement 04/30/24 04/30/24 History
Walls Laxative 1 dose PO DAILYPRN PRN constipation 04/30/24 04/30/24 History
amlodipine 5 mg tablet 5 mg PO DAILY Blood Pressure 04/30/24 04/30/24 History
apixaban 2.5 mg tablet (Eliquis) 2.5 mg PO BID Blood Clot 04/30/24 04/30/24 History
Prevention/Tx
cholecalciferol (vitamin D3) 25 50 mcg PO DAILY Supplement 04/30/24 04/30/24 History
mcg (1,000 unit) capsule (Vitamin
D3)
cyanocobalamin (vitamin B-12) 1,000 mcg PO DAILY Supplement 04/30/24 04/30/24 History
1,000 mcg tablet
diclofenac sodium 1 % topical gel 1 ea topical DAILYPRN PRN topical 04/30/24 04/30/24 History
pain
doxazosin 2 mg tablet 2 mg PO QPM BPH 04/30/24 04/30/24 History
epoetin gila 40,000 unit/mL 40,000 unit SC .Q2-3WEEKS RED 04/30/24 04/30/24 History
injection solution (Procrit) BLOOD CELLS
fluticasone propionate 50 2 spray intranasal BID 04/30/24 04/30/24 History
mcg/actuation nasal Lung/Breathing Issues
spray,suspension
hydralazine 10 mg tablet 20 mg PO BIDPRN PRN sbp > 160 04/30/24 04/30/24 History
ipratropium bromide 17 2 puff inhalation R QPM 04/30/24 04/30/24 History
mcg/actuation HFA aerosol inhaler Lung/Breathing Issues
(Atrovent HFA)
ketoconazole 2 % topical cream 1 applic topical BIDPRN PRN feet 04/30/24 04/30/24 History
magnesium 200 mg tablet 300 mg PO HS Electrolyte Repletion 04/30/24 04/30/24 History
melatonin 5 mg tablet 5 mg PO HS Sleep 04/30/24 04/30/24 History
metoprolol succinate 25 mg 25 mg PO BID Heart Failure 04/30/24 04/30/24 History
tablet,extended release 24 hr
olmesartan 20 mg tablet 20 mg PO QPM Blood Pressure 04/30/24 04/30/24 History
ondansetron HCl 4 mg tablet 4 mg PO BIDPRN PRN nausea/vomiting 04/30/24 04/30/24 History
pantoprazole 40 mg tablet,delayed 40 mg PO DAILY Gastrointestinal 04/30/24 04/30/24 History
release Issue
polyethylene glycol 3350 17 gram 17 g PO DAILYPRN PRN constipation 04/30/24 04/30/24 History
oral powder packet (Miralax)
propylene glycol-glycerin 0.6 1 drp ophthalmic (eye) BID Eye 04/30/24 04/30/24 History
%-0.6 % eye drops in a dropperette Condition
(Soothe Lubricant)
ranolazine 500 mg tablet,extended 1,000 mg PO BID chronic chest pain 04/30/24 04/30/24 History
release,12 hr
rosuvastatin 5 mg tablet 5 mg PO QPM High Cholesterol 04/30/24 04/30/24 History
sennosides 8.6 mg tablet (senna) 17.2 mg PO HS Constipation 04/30/24 04/30/24 History
torsemide 20 mg tablet 20 mg PO DAILY Blood Pressure 04/30/24 04/30/24 History
Review of Systems
-
History Source: Patient
Constitutional: Weight Gain
Respiratory: Cough and Trouble Breathing
Physical Exam
Vital Signs
Vital Signs
Temp Pulse Resp BP Pulse Ox
97.6 F 74 18 123/49 96
05/02/24 07:00 05/02/24 07:00 05/02/24 07:00 05/02/24 07:00 05/02/24 07:00
Lab Results
WBC 5.0 10^3/uL (4.8-10.8) 05/02/24 06:22
RBC 2.46 10^6/uL (4.70-6.10) L 05/02/24 06:22
Hgb 9.1 g/dL (13.0-18.0) L 05/02/24 13:13
Hct 24.9 % (39.0-52.0) L 05/02/24 13:13
Plt Count 143 10^3/uL (130-400) 05/02/24 06:22
Sodium 129 mmol/L (135-145) L 05/02/24 06:22
Potassium 4.8 mmol/L (3.5-5.1) 05/02/24 06:22
Chloride 92 mmol/L (98-107) L 05/02/24 06:22
Carbon Dioxide 27 mmol/L (22-30) 05/02/24 06:22
BUN 30 mg/dl (9-20) H 05/02/24 06:22
Creatinine 2.0 mg/dL (0.7-1.3) H 05/02/24 06:22
eGFR 32.10 05/02/24 06:22
Glucose 110 mg/dl (70-99) H 05/02/24 06:22
Calcium 8.8 mg/dl (8.4-10.2) 05/02/24 06:22
Phosphorus 4.5 mg/dl (2.5-4.5) 05/02/24 06:22
Dpb-M-Lbciqfusbtg Pept 3440 pg/ml 04/30/24 15:54
Albumin 3.4 g/dl (3.5-5.0) L 05/01/24 06:45
Physical Exam
General: AOx3, No Distress and Nontoxic
HEENT: PERRL, EOMI, Anicteric, Conjunctivae Clear, Ear/Nose Intact, Hearing Normal, Neck Supple, Trachea Midline and No Thyromegaly
Respiratory: Wheezes and Crackels
Cardiac: S1/S2, Regular Rate/Rhythm and Edema
Breast: N/A
Abdomen: Soft, Nontender, Nondistended, Normal Bowel Sounds and No Hepatosplenomegaly
Rectal: Deferred by Provider
Genito-urinary: No Costovertebral Tender
Musculoskeletal: No Clubbing, No Cyanosis and Edema
Skin: No Rash, Warm, Dry, No Clubbing, No Cyanosis, Normal Turgor, No Bruising and Other (erythema of bilateral lower extremities)
Neuro: Nonfocal/Grossly Intact
Hematologic/Lymphatic: No Cervical Lymphadenopathy
Psych: Mood/afflect pleasant, Insight/judgement good and Appropriate
Data Reviewed
-
Radiology: Image Personally Visualized and interpreted (No acute cardiopulmonary process.)
Labs: Labs Reviewed by me, Discussed with Physician and Discussed with Patient
Old Records: Reviewed
Assessment/Plan
-
Assessment:
MARIE on CKD 3B (bl Cr 1.4-1.7)
hyponatremia
CHF exacerbation
Anemia
pAFib
GERD
Plan:
MARIE on CKD
- Cr slightly elevated from baseline, likely in the setting of diuresis/cardiorenal
- obtain UA
- could consider restarting diuretics GABRIELA as patient is severely overloaded
- may need RHC to better direct diuresis
- might need inotropes to assist in diuresis
Hyponatremia
- obtain Uosm and Keila
- okay for one dose of samsca today
[2024-05-02 14:48] LABS: Folate 6.1 ng/ml (2.76-20); Vitamin B12 622 pg/ml (239-931)
[2024-05-02] MEDS: LIPITOR 10 MG PO (14:53)
[2024-05-02 15:28] VITALS: BP 106/46
[2024-05-02] MEDS: FERRLECIT 110 MG IV (15:35)
[2024-05-02] MEDS: CARDURA 2 MG PO (17:22)
[2024-05-02] MEDS: SAMSCA 7.5 MG PO (17:22)
[2024-05-02 18:18] LABS: Urine Albumin 2+ (Neg - Trace); Urine Bilirubin Negative (Negative); Urine Character Slightly Cloudy (Clear); Urine Color Yellow; Urine Glucose Negative (Negative); Urine Ketone Negative (Negative); Urine Leukocyte 2+ (Negative); Urine Nitrite Negative (Negative); Urine Occult Blood 4+ (Negative); Urine Specific Gravity 1.015 (<1.030); Urine Urobilinogen Negative (Neg - 1+)
[2024-05-02 18:24] LABS: Urine Bacteria Many (Negative); Urine Red Blood Cell 26-30 /HPF (0-2); Urine White Cell 60-70 /HPF (0-5)
[2024-05-02] MEDS: NON-FORMULARY ITEM 40000 UNIT SC (18:29)
[2024-05-02 18:34] LABS: Osmolality Urine 330 mOsm/kg (300-900)
[2024-05-02 18:39] LABS: Urine Sodium 22 mmol/L (30-90)
[2024-05-02 19:00] VITALS: BP 117/52
[2024-05-02] MEDS: ATROVENT NEBULES 0.5 MG INH (20:06)
[2024-05-02] MEDS: MELATONIN 5 MG PO (22:35)
[2024-05-02 23:00] VITALS: BP 121/64
[2024-05-03] VITALS (8 sets, daily range): BP systolic 112–132; BP diastolic 45–65; BMI 33.3
--- NOTE | 2024-05-03 07:34 | W.PN.HOSP.TC ---
Today's Communication/Plan
-
transfer to IVU closer monitoring high risk situation Heart Failure worsening kidney function
lasix gtt as per cardio nephro
monitor renal function Na
Monitor H&H
Assessment / Plan
Assessment / Plan
Physical Exam
General: No acute distress. Appears comfortable at this time. Obese
HEENT: NormoCephalic, Moist mucous membranes and Atraumatic
Respiratory: Clear to auscultation
Cardiac: S1/S2, Regular Rhythm and Peripheral Edema (Bilateral lower extremities edema, abdominal swelling); No Murmur or Rub
GI: Soft, Non Tender, Normal Bowel Sounds and Distended; No Organomegaly
Genito-urinary: Suprapubic Tube
Musculoskeletal: Bilateral lower extremities edema +2
Skin: No Rash
Neuro: AO x 3 and Nonfocal/grossly intact
#hyponatremia/hyperkalemia/i likely hypervolemic
# Chronic kidney disease stage IIIb
-fluid restriction
-diuretics
-samsca prn as per Nephro
-Na since improved
#diastolic HF exacerbation
-Lasix 40 Mg IV twice a day held d/t progressive worsening kidney function.
-Kidney function however continued to worsen
-Suspected cardiorenal syndrome, as per discussion with Nephro and Cardiology patient to start Lasix gtt, transfer to IVU for closer monitoring high risk situation
-strict I &O
-daily weight
-fluid restriction
-chest x ray with No acute cardiopulmonary process.
-[id number]
-ECHO appreciated EF 55% no significant valve abn's
-Cardiology consult appreciated
#Iron deficiency
# Anemia of chronic disease
-Receives Procrit as outpatient last dose 2 wks ago typically receives for Hgb<10 (patient received dose here 05/02/24)
-No active bleeding
-Monitor H&H, transfusion if Hgb <8 given cardiac history
# Essential hypertension
# History of coronary artery disease/cardiac stents
-Blood pressure stable
-Norvasc continued
-Ranexa on hold d/t worsening kidney function
# Hyperlipidemia
-Statin continued
# Paroxysmal A-fib
-EKG with sinus rhythm with first-degree AV block, incomplete left bundle branch block
-Eliquis continued
-Metoprolol continued
# GERD
-PPI continued
# BPH
-Doxazosin continued
#hxt of kidney ca
-monitored by [facility] oncology.
# DVT prophylaxis
-Eliquis
# CODE STATUS
-DNR
Daughter Mita updated
I spent a total of 50 minutes with the patient or on the floor. More than 50% of this time involved counseling and coordination of care.
Anticipated Discharge: > 48 hours
Subjective/Interval History
-
Date of Service: May 03, 2024
reports self-limited episode headache lightheadedness. Exertional dyspnea persists though stable respiratory status on room air at rest.
Objective Data
-
Labs:
Laboratory Results
05/03/24
07:23
WBC Pending
Hgb Pending
Hct Pending
Plt Count Pending
Sodium Pending
Potassium Pending
Chloride Pending
Carbon Dioxide Pending
BUN Pending
Creatinine Pending
Glucose Pending
Calcium Pending
Vital Signs:
Vital Signs
Temp Pulse Resp BP Pulse Ox
98.4 F 72 18 114/45 96
05/03/24 03:00 05/03/24 03:00 05/03/24 03:00 05/03/24 03:00 05/03/24 03:00
I&O
05/02/24 05/03/24 05/04/24
06:59 06:59 06:59
Intake Total 790 / 790 240 / 240 240 / 240
Output Total 1525 / 1525 550 / 550 1999 / 1999
Balance -735 / -735 -310 / -310 -1760 / -1760
[2024-05-03 08:33] LABS: Hematocrit 23.2 % (39.0-52.0); Hemoglobin 8.4 g/dL (13.0-18.0); Mean Corp Hgb Conc. 36.2 g/dL (33.0-37.0); Mean Corpuscular Hgb 32.7 pg (27.0-31.0); Mean Corpuscular Volume 90.3 fL (80.0-94.0); Mean Platelet Volume 8.4 fL (7.4-10.4); Platelet Count 156 10^3/uL (130-400); Red Blood Cell Count 2.57 10^6/uL (4.70-6.10); Red Cell Dist. Width 14.5 % (11.5-14.5); White Blood Cell Count 3.6 10^3/uL (4.8-10.8)
[2024-05-03 08:36] LABS: Blood Urea Nitrogen 35 mg/dl (9-20); Carbon Dioxide 26 mmol/L (22-30); Chloride 95 mmol/L (98-107); Estimated Creatinine Clearance 21 ml/min; Glucose 98 mg/dl (70-99); Magnesium 2.5 mg/dl (1.6-2.3); Phosphorus 4.8 mg/dl (2.5-4.5); Potassium 5.1 mmol/L (3.5-5.1); Sodium 130 mmol/L (135-145); eGFR 24.56
[2024-05-03] MEDS: SENOKOT-S 1 TABLET PO ×2 (09:02→19:51)
[2024-05-03] MEDS: TOPROL XL 25 MG PO ×2 (09:04→19:50)
[2024-05-03] MEDS: REFRESH EYE DROPS (PF) 1 DROPS OPHTH ×2 (09:05→19:51)
[2024-05-03] MEDS: ELIQUIS 2.5 MG PO ×2 (09:05→19:50)
[2024-05-03] MEDS: NORVASC 5 MG PO (09:05)
[2024-05-03] MEDS: NON-FORMULARY ITEM 1 UNIT PO (09:06)
[2024-05-03] MEDS: MIRALAX PO (09:12)
--- NOTE | 2024-05-03 12:40 | W.PN.NEPH.PH ---
Today's Communication / Plan
-
- lasix gtt
Assessment/Plan
-
Assessment:
MARIE on CKD 3B (bl Cr 1.4-1.7)
hyponatremia
CHF exacerbation
Anemia
pAFib
GERD
Plan:
MARIE on CKD
- Cr slightly elevated from baseline, likely in the setting of diuresis/cardiorenal
- UA with blood and protein (Juarez is in place), appears to be contaminated sample
- restart on lasix gtt today, will need to closely monitor kidney function
- transfer to IVU for closer monitoring
- may need RHC to better direct diuresis
- might need inotropes to assist in diuresis
Hyponatremia
- indicative of likely hypervolemic hyponatremia
- trialed samsca with improvement in Na to 130
-
-
Date of Service: May 03, 2024
CC / HPI / ROS
-
Chief Complaint:
MARIE, hyponatremia
History of Present Illness:
Na 130, rian 125
Cr 2.5, bl 1.4-1.6
Review of Systems:
feelign sob
Labs
-
Labs:
WBC 3.6 10^3/uL (4.8-10.8) L 05/03/24 07:23
RBC 2.57 10^6/uL (4.70-6.10) L 05/03/24 07:23
Hgb 8.4 g/dL (13.0-18.0) L 05/03/24 07:23
Hct 23.2 % (39.0-52.0) L 05/03/24 07:23
Plt Count 156 10^3/uL (130-400) 05/03/24 07:23
eGFR 24.56 05/03/24 07:23
Phosphorus 4.8 mg/dl (2.5-4.5) H 05/03/24 07:23
Egd-G-Yorurdiwxko Pept 3440 pg/ml 04/30/24 15:54
Albumin 3.4 g/dl (3.5-5.0) L 05/01/24 06:45
Physical Exam
-
Vital Signs:
Vital Signs
Temp Pulse Resp BP Pulse Ox
97.7 F 67 16 114/50 99
05/03/24 11:22 05/03/24 11:22 05/03/24 11:22 05/03/24 11:22 05/03/24 11:22
Cardiovascular:: Regular rate and rhythm
Respiratory:: Bilateral: Coarse
Lung Excursion:: Normal
Abdomen:: Nontender and Soft
Bowel Sounds:: Normal
Extremity Edema:: +2: Bilateral:
Juarez Catheter: Yes
[2024-05-03] MEDS: FERRLECIT 110 MG IV (13:13)
[2024-05-03] MEDS: LASIX 80 MG IV (13:30)
--- NOTE | 2024-05-03 13:49 | W.PN.CARDCBS ---
Today's Communication / Plan
-
Transfer to IVU
Lasix drip with close monitoring of basic metabolic profile
Will hold amlodipine
Impression / Plan
-
PCP: Dr. Wolfe
Brim Molder: Dr. BE Diaz
Impression:
Presented with SOB, weight gain
Acute on chronic HFpEF
Hyponatremia
CAD
BMS to LCx 2011
Chronically occluded mid RCA by cath 01/14/2019
Paroxysmal atrial fibrillation
Chronic Eliquis anticoagulation
HTN
HLD
CKD 3b
Chronic anemia
GERD
h/o prostate cancer s/p XRT
Chronic suprapubic catheter
Echo 02/07/2023: EF 65%, mod cLVH, grade I DD, mild MR, trace TR
Echo 05/01/2024: EF 55%, mild cLVH, mild with peak/mean gradients 16/8 mmHg, mild TR, estimated PAP 30-35 mmHg
Plan:
Acute on chronic heart failure with preserved ejection fraction
-proBNP 3440
-Unfortunately no significant improvement in symptoms with IV diuresis with increasing creatinine despite holding Lasix last 24 hours
-Case discussed with nephrology
-Will transfer to IVU
-Trial of Lasix drip with close following of basic metabolic profile
-Pending response can consider right heart catheterization next week
-Patient does follow with nephrology as an outpatient, Dr. Montgomery. Will ask nephrology to become involved this admission
-Goal-directed medical therapy at this point limited by renal function
Acute on chronic renal insufficiency with history of prostate cancer status post radiation and a chronic suprapubic catheter
-Appreciate nephrology input
-IV Lasix drip
-Monitor renal function electrolytes closely
-Will stop Ranexa given renal contraindication
-Change rosuvastatin to atorvastatin secondary to renal insufficiency
Hyponatremia
-Sodium is improved after Samsca.
-Follow closely with IV Lasix
-Nephrology following
Normocytic anemia
-Status post IV iron
-Monitor H&H
History of coronary artery disease with prior bare-metal stent to circumflex artery in 2012 and a TCO of the mid RCA in 2019
-No chest pain suggestive of angina
-Continue beta-allison, statin
History of paroxysmal atrial fibrillation currently in sinus rhythm
-Continue metoprolol and renally dosed Eliquis
Discussed with hospitalist and nephrology
Daughter Mita in agreement with plan
HPI: Aden is an 83 year old male with PMH of CAD w/ prior LCx stenting, chronic HFpEF, paroxysmal atrial fibrillation, HTN, HLD, CKD, GERD, and prostate cancer who presented to [facility] for evaluation after being seen in the cardiology office 04/30/2024.
He was seen for evaluation of worsening SOB, edema, and weight gain. He had recently been placed on lower dose of torsemide when his symptoms started developing. In the office. there was concern that he was in acute heart failure and he was referred
to the ER for further workup and management. In ER, he was found to have elevated proBNP and given worsening symptoms consistent with acute heart failure, he was admitted and started on IV lasix. Cardiology consulted for evaluation. He continues to
feel somewhat poorly this morning, but remains on room air.
Progress Note - Brim Molder
Subjective
Date of Service: May 03, 2024
Seen and examined sitting out of bed to chair. Patient interviewed with in room counter clerk line and spoke with counter clerk [phone] Terry. Patient continues to feel short of breath and has dizziness. No chest pain or pressure. He is aware of plan
and all questions were answered
Objective
Labs:
05/03/24 07:23
Labs
Hgb 8.4 g/dL (13.0-18.0) L 05/03/24 07:23
Hct 23.2 % (39.0-52.0) L 05/03/24 07:23
Plt Count 156 10^3/uL (130-400) 05/03/24 07:23
Sodium 130 mmol/L (135-145) L 05/03/24 07:23
Potassium 5.1 mmol/L (3.5-5.1) 05/03/24 07:23
BUN 35 mg/dl (9-20) H 05/03/24 07:23
Creatinine 2.5 mg/dL (0.7-1.3) H 05/03/24 07:23
Glucose 98 mg/dl (70-99) 05/03/24 07:23
Troponins
04/30/24
15:54
Troponin I 0.016
Vital Signs and I&O:
Vital Signs
Temp Pulse Resp BP Pulse Ox
97.7 F 67 16 116/53 99
05/03/24 11:22 05/03/24 11:22 05/03/24 11:22 05/03/24 13:30 05/03/24 11:22
Vital Signs
Temp Pulse Resp BP Pulse Ox
97.7 F 67 16 116/53 99
05/03/24 11:22 05/03/24 11:22 05/03/24 11:22 05/03/24 13:30 05/03/24 11:22
Intake & Output
05/01/24 05/02/24 05/03/24 05/04/24
06:59 06:59 06:59 06:59
Intake Total 240 / 240 790 / 790 240 / 240 240 / 240
Output Total 1500 / 1500 1525 / 1525 550 / 550 1999 / 1999
Balance -1260 / -1260 -735 / -735 -310 / -310 -1760 / -1760
Physical Exam
Physical Exam
General: No acute distress, AAOX3
Heart: Regular, positive S1/S2, 2/6 SM
Lungs: Bronchovesicular breath sounds, decreased at bases with fine crackles
Abd: Obese, positive BS, NT/ND, neg rebound/rigidity/guarding
Ext: ++edema; lower extremity scar
--- NOTE | 2024-05-03 14:52 | TRANSFER ---
Patient transported to IVU in wheelchair with belongings and situated in [id number]. Report given to Loly in IVU. Patient arrived safely.
[2024-05-03] MEDS: LASIX 50 IV (14:56)
[2024-05-03] MEDS: FLUSH (NSS) 1 FLUSH IV (14:56)
--- NOTE | 2024-05-03 15:05 | PTCARENOTE ---
Received the patient from [facility] in a wheelchair. The patient is aaao3, vital signs are stable, NSR with a 1st degree AVB noted on the monitor. He is [place]ian speaking. His suprapubic catheter is draining slightly cloudy yellow urine. He complained of
abdominal discomfort and rates it a 3/10 on scale. His abdomen is round, distended and firm. He has a small BM that was formed on arrival. He stated that yesterday his stools were loose. I started his Lasix gtt to run at 2ml/hr. I oriented him to
his room. His call rao is within reach.
[2024-05-03] MEDS: CARDURA 2 MG PO (17:30)
[2024-05-03] MEDS: LIPITOR 10 MG PO (17:30)
[2024-05-03] MEDS: ATROVENT NEBULES 0.5 MG INH (18:02)
[2024-05-03 21:43] LABS: Blood Urea Nitrogen 41 mg/dl (9-20); Calcium 9.3 mg/dl (8.4-10.2); Carbon Dioxide 22 mmol/L (22-30); Chloride 93 mmol/L (98-107); Estimated Creatinine Clearance 22 ml/min; Glucose 191 mg/dl (70-99); Sodium 131 mmol/L (135-145)
[2024-05-03] MEDS: MELATONIN 5 MG PO (22:27)
[2024-05-04] VITALS (12 sets, daily range): BP systolic 101–130; BP diastolic 48–66; PULSE 87; BMI 32.2
--- NOTE | 2024-05-04 02:05 | PTCARENOTE ---
Rec'd pt at change of shift on TELE monitor with pt in NSR and 1st AV block and VSS (see flowchart). Pt AAOx3 and denied any pain or discomfort. Pt used aircraft armorer to communicate with RN and staff. Pt with lasix gtt infusing at 2mL's per hour. Pt
resting with call rao in reach.
[2024-05-04 03:56] LABS: Hematocrit 23.8 % (39.0-52.0); Hemoglobin 8.7 g/dL (13.0-18.0); Mean Corp Hgb Conc. 36.6 g/dL (33.0-37.0); Mean Corpuscular Hgb 32.7 pg (27.0-31.0); Mean Corpuscular Volume 89.5 fL (80.0-94.0); Mean Platelet Volume 7.8 fL (7.4-10.4); Platelet Count 140 10^3/uL (130-400); Red Blood Cell Count 2.66 10^6/uL (4.70-6.10); Red Cell Dist. Width 14.5 % (11.5-14.5); White Blood Cell Count 4.2 10^3/uL (4.8-10.8)
[2024-05-04] MEDS: LASIX 50 IV (04:08)
[2024-05-04 04:17] LABS: Blood Urea Nitrogen 43 mg/dl (9-20); Calcium 9.1 mg/dl (8.4-10.2); Carbon Dioxide 24 mmol/L (22-30); Chloride 95 mmol/L (98-107); Estimated Creatinine Clearance 22 ml/min; Glucose 114 mg/dl (70-99); Magnesium 2.4 mg/dl (1.6-2.3); Phosphorus 5.4 mg/dl (2.5-4.5); Potassium 4.4 mmol/L (3.5-5.1); Sodium 132 mmol/L (135-145); eGFR 27.15
--- NOTE | 2024-05-04 07:36 | W.PN.HOSP.TC ---
Today's Communication/Plan
-
lasix gtt as per cardio Nephro
daily weights I/O
check repeat CXR persistent subjective dyspnea though stable respiratory status on room air
Monitor Renal Function H&H
Assessment / Plan
Assessment / Plan
Physical Exam
General: No acute distress. Appears comfortable at this time. Obese
HEENT: NormoCephalic, Moist mucous membranes and Atraumatic
Respiratory: Clear to auscultation
Cardiac: S1/S2, Regular Rhythm; No Murmur or Rub
GI: Soft, Non Tender, Normal Bowel Sounds and Distended; No Organomegaly
Genito-urinary: Suprapubic Tube
Musculoskeletal: Bilateral lower extremities edema +1
Skin: No Rash
Neuro: AO x 3 and Nonfocal/grossly intact
83M afib CHF CKD HTN Chronic Venous insuff DVT ileus CAD HTN Prostate Kidney Ca here for acute on chronic HFpEF
#hyponatremia/hyperkalemia/i likely hypervolemic
# Chronic kidney disease stage IIIb
-fluid restriction
-diuretics
-samsca prn as per Nephro
-Na since improved
#Acute on Chronic HFpEF
#diastolic HF exacerbation
Suspected cardiorenal syndrome
Kidney function continued to worsen despite hold on Lasix
started on lasix gtt (cont) transferred to IVU for closer monitoring high risk situation
-strict I &O
-daily weight
-fluid restriction
-04/30 chest x ray with No acute cardiopulmonary process.
-[id number]
-ECHO appreciated EF 55% no significant valve abn's
-Cardiology consult appreciated
#Continues to endorse subjective feelings SOB though stable respiratory status room air
#small pleural effusion noted on ECHO
check repeat CXR 05/04
#Iron deficiency
# Anemia of chronic disease
-Receives Procrit as outpatient last dose 2 wks ago typically receives for Hgb<10 (patient received dose here 05/02/24)
-No active bleeding
-Monitor H&H, transfusion if Hgb <8 given cardiac history
-IV iron supplementation x3, start oral supplementation tomorrow.
# Essential hypertension
# History of coronary artery disease/cardiac stents
-Blood pressure stable
-Norvasc held to allow room for more aggressive diuresis
-Ranexa on hold d/t worsening kidney function
# Hyperlipidemia
-Statin continued
# Paroxysmal A-fib
-EKG with sinus rhythm with first-degree AV block, incomplete left bundle branch block
-Eliquis continued
-Metoprolol continued
# GERD
-PPI continued
# BPH
-Doxazosin continued
#hxt of kidney ca
-monitored by [facility] oncology.
# DVT prophylaxis
-Eliquis
# CODE STATUS
-DNR
Discussed with patient (via language line Togolese mathematics instructor) and patient's Daughter Mita
I spent a total of 58 minutes with the patient or on the floor. More than 50% of this time involved counseling and coordination of care.
Anticipated Discharge: 24 - 48 hours
Subjective/Interval History
-
Date of Service: May 04, 2024
Reports lightheadedness headache on sitting up self-limited. Continues to report feeling short of breath. Respiratory status otherwise stable of room air. Interviewed with language line Togolese mathematics instructor assistance
Objective Data
-
Labs:
Laboratory Results
05/03/24 05/04/24
21:08 03:41
WBC 4.2 L
Hgb 8.7 L
Hct 23.8 L
Plt Count 140
Sodium 131 L 132 L
Potassium 5.0 4.4
Chloride 93 L 95 L
Carbon Dioxide 22 24
BUN 41 H 43 H
Creatinine 2.4 H 2.3 H
Glucose 191 H 114 H
Calcium 9.3 9.1
Vital Signs:
Vital Signs
Temp Pulse Resp BP Pulse Ox
98.3 F 69 18 101/52 95
05/04/24 07:06 05/04/24 05:00 05/04/24 07:06 05/04/24 03:31 05/04/24 07:06
I&O
05/03/24 05/04/24 05/05/24
06:59 06:59 06:59
Intake Total 240 / 240 384 / 384
Output Total 550 / 550 5025 / 5025
Balance -310 / -310 -4641 / -4641
--- NOTE | 2024-05-04 09:02 | W.PN.CARDCBS ---
Addendum entered and electronically signed by Lashell Plata DO 05/04/24 11:06:
I saw and examined the patient.
The Joint Sealer's note was reviewed and I agree with the note.
Comment: Patient seen and examined. Utilized language line and spoke with Nikia certified court interpreter #[id number]. Patient offers no new complaints still reporting dizziness and overall weakness. No chest pain or pressure.
General: No acute distress, AAOX3
Heart: Regular, positive S1/S2, 2/6 SM
Lungs: Bronchovesicular breath sounds, decreased at bases with fine crackles
Abd: Obese, positive BS, NT/ND, neg rebound/rigidity/guarding
Ext: +edema; lower extremity scar
Plan:
Acute on chronic heart failure with preserved ejection fraction
-proBNP 3440
-Unfortunately no significant improvement in symptoms with IV diuresis with increasing creatinine despite holding Lasix last 24 hours
-Case discussed with nephrology yesterday and transferred to the IVU for IV Lasix drip
-So far tolerating well with weights improved 7 pounds overnight and creatinine stable
-Close monitoring basic metabolic profiles for creatinine and electrolytes. Continue daily weights.
-Patient does follow with nephrology as an outpatient, Dr. Montgomery. Will ask nephrology to become involved this admission
-Goal-directed medical therapy at this point limited by renal function
Acute on chronic renal insufficiency with history of prostate cancer status post radiation and a chronic suprapubic catheter
-Appreciate nephrology input
-Continue IV Lasix drip
-Monitor renal function electrolytes closely
-Will stop Ranexa given renal contraindication
-Change rosuvastatin to atorvastatin secondary to renal insufficiency
Hyponatremia
-Sodium is improved after Samsca.
-Follow closely with IV Lasix
-Nephrology following
Normocytic anemia
-Status post IV iron
-Monitor H&H
History of coronary artery disease with prior bare-metal stent to circumflex artery in 2012 and a TCO of the mid RCA in 2019
-No chest pain suggestive of angina
-Continue beta-allison, statin
History of paroxysmal atrial fibrillation currently in sinus rhythm
-Continue metoprolol and renally dosed Eliquis
Original Note:
Today's Communication / Plan
-
Continue lasix gtt
Creat improving
Follow electrolytes
Impression / Plan
-
PCP: Dr. Wolfe
Health Analyst: Dr. BE Diaz
Impression:
Presented with SOB, weight gain
Acute on chronic HFpEF
Hyponatremia
CAD
BMS to LCx 2011
Chronically occluded mid RCA by cath 01/14/2019
Paroxysmal atrial fibrillation
Chronic Eliquis anticoagulation
HTN
HLD
CKD 3b
Chronic anemia
GERD
h/o prostate cancer s/p XRT
Chronic suprapubic catheter
Echo 02/07/2023: EF 65%, mod cLVH, grade I DD, mild MR, trace TR
Echo 05/01/2024: EF 55%, mild cLVH, mild with peak/mean gradients 16/8 mmHg, mild TR, estimated PAP 30-35 mmHg
Plan:
-Presented from cardiology office with acute heart failure exacerbation.
-Initially attempted diuresis with IV lasix 40mg BID, however as he was not responding with rising creat, started on Lasix gtt 05/03.
-Weight down 7lbs overnight, down to 181 lbs and creat improving, down slightly to 2.3.
-Echo 05/01 noted EF 55% with mild as noted above.
-Known h/o CAD w/ prior stenting. Troponin negative.
-h/o paroxysmal atrial fibrillation noted. HR stable. Continue Eliquis for anticoagulation.
-Continue home amlodipine, doxazosin, and Toprol. Ranexa stopped due to renal contraindication.
-Crestor switched to atorvastatin given renal insufficiency. LDL 58.
HPI: Lev is an 83 year old male with PMH of CAD w/ prior LCx stenting, chronic HFpEF, paroxysmal atrial fibrillation, HTN, HLD, CKD, GERD, and prostate cancer who presented to [facility] for evaluation after being seen in the cardiology office 04/30/2024.
He was seen for evaluation of worsening SOB, edema, and weight gain. He had recently been placed on lower dose of torsemide when his symptoms started developing. In the office. there was concern that he was in acute heart failure and he was referred
to the ER for further workup and management. In ER, he was found to have elevated proBNP and given worsening symptoms consistent with acute heart failure, he was admitted and started on IV lasix. Cardiology consulted for evaluation. He continues to
feel somewhat poorly this morning, but remains on room air.
Progress Note - Health Analyst
Subjective
Date of Service: May 04, 2024
Improving, still somewhat tired/fatigued.
Objective
Labs:
05/04/24 03:41
Labs
Hgb 8.7 g/dL (13.0-18.0) L 05/04/24 03:41
Hct 23.8 % (39.0-52.0) L 05/04/24 03:41
Plt Count 140 10^3/uL (130-400) 05/04/24 03:41
Sodium 132 mmol/L (135-145) L 05/04/24 03:41
Potassium 4.4 mmol/L (3.5-5.1) 05/04/24 03:41
BUN 43 mg/dl (9-20) H 05/04/24 03:41
Creatinine 2.3 mg/dL (0.7-1.3) H 05/04/24 03:41
Glucose 114 mg/dl (70-99) H 05/04/24 03:41
Vital Signs and I&O:
Vital Signs
Temp Pulse Resp BP Pulse Ox
98.3 F 72 18 111/48 95
05/04/24 07:06 05/04/24 07:05 05/04/24 07:06 05/04/24 07:05 05/04/24 07:06
Vital Signs
Temp Pulse Resp BP Pulse Ox
98.3 F 72 18 111/48 95
05/04/24 07:06 05/04/24 07:05 05/04/24 07:06 05/04/24 07:05 05/04/24 07:06
Intake & Output
05/02/24 05/03/24 05/04/24 05/05/24
06:59 06:59 06:59 06:59
Intake Total 790 / 790 240 / 240 384 / 384
Output Total 1525 / 1525 550 / 550 5025 / 5025
Balance -735 / -735 -310 / -310 -4641 / -4641
Physical Exam
Physical Exam
GEN: No distress, awake, alert, oriented x3
HEENT: supple, anicteric, mmm
LUNGS: few crackles at b/l bases, no wheezes
CV: Reg, S1/S2, 2/6 syst murmur
EXT: No clubbing or cyanosis +1 edema
NEURO: Gross non-focal
SKIN: Warm, dry, no rash
[2024-05-04] MEDS: NON-FORMULARY ITEM 1 UNIT PO (09:19)
[2024-05-04] MEDS: MIRALAX PO ×2 (09:19→09:26)
[2024-05-04] MEDS: ELIQUIS 2.5 MG PO ×2 (09:20→20:23)
[2024-05-04] MEDS: SENOKOT-S 1 TABLET PO ×2 (09:20→20:23)
[2024-05-04] MEDS: TOPROL XL 25 MG PO ×2 (09:20→20:24)
[2024-05-04] MEDS: FLUSH (NSS) 2 FLUSH IV ×2 (09:21→13:35)
[2024-05-04] MEDS: REFRESH EYE DROPS (PF) 1 DROPS OPHTH ×2 (09:21→20:23)
--- NOTE | 2024-05-04 09:35 | PTCARENOTE ---
Patient oob for breakfast. NSR with a 1st AVB noted on the monitor. Vital signs are stable. Clear lungs BL. Lasix gtt running at 2ml/hr. Clear yellow urine from suprapubic catheter. Juarez care completed.
--- NOTE | 2024-05-04 10:33 | W.PN.NEPH.PH ---
Today's Communication / Plan
-
diurese
Assessment/Plan
-
Assessment:
MARIE on CKD 3B (bl Cr 1.4-1.7)
hyponatremia
CHF exacerbation
Anemia
pAFib
GERD
Plan:
follow BMP
continue lasix gtt
no samsca needed today
replete K prn
-
-
Date of Service: May 04, 2024
CC / HPI / ROS
-
Chief Complaint:
MARIE, hyponatremia
History of Present Illness:
Na low stable at 132
K controlled 4.4
MARIE/Cr stable at 2.3
Hgb stable at 8.7
diuresing well with lasix gtt for decompensated HF
Review of Systems:
no CP/sob
c/o leg discomfort
Labs
-
Labs:
WBC 4.2 10^3/uL (4.8-10.8) L 05/04/24 03:41
RBC 2.66 10^6/uL (4.70-6.10) L 05/04/24 03:41
Hgb 8.7 g/dL (13.0-18.0) L 05/04/24 03:41
Hct 23.8 % (39.0-52.0) L 05/04/24 03:41
Plt Count 140 10^3/uL (130-400) 05/04/24 03:41
eGFR 27.15 05/04/24 03:41
Phosphorus 5.4 mg/dl (2.5-4.5) H 05/04/24 03:41
Yek-N-Tzlxktjqcbl Pept 3440 pg/ml 04/30/24 15:54
Albumin 3.4 g/dl (3.5-5.0) L 05/01/24 06:45
Physical Exam
-
Vital Signs:
Vital Signs
Temp Pulse Resp BP Pulse Ox
98.3 F 72 18 111/48 95
05/04/24 07:06 05/04/24 07:05 05/04/24 07:06 05/04/24 07:05 05/04/24 07:06
Cardiovascular:: Regular rate and rhythm
Respiratory:: Bilateral: Coarse and Bilateral: Rales
Lung Excursion:: Normal
Abdomen:: Nontender and Soft
Bowel Sounds:: Normal
Extremity Edema:: +2: Bilateral:
--- NOTE | 2024-05-04 12:56 | CM ---
Chart reviewed. Patient is independent of ADLS, lives with his in a 2 [address], ambulates with a RW and has a supportive daughter who helps. Patient receives Home Care Services through [facility]. Patient's daughter is not interested in
VN at this time. She said patient is frequently going to doctors appointments, so no need for VN. Plan is for the patient to return home. CM to follow
[2024-05-04 13:01] LABS: Blood Urea Nitrogen 44 mg/dl (9-20); Calcium 9.3 mg/dl (8.4-10.2); Carbon Dioxide 27 mmol/L (22-30); Chloride 93 mmol/L (98-107); Estimated Creatinine Clearance 22 ml/min; Glucose 139 mg/dl (70-99); Potassium 4.2 mmol/L (3.5-5.1); Sodium 133 mmol/L (135-145); eGFR 27.15
[2024-05-04] MEDS: FERRLECIT 110 MG IV (13:34)
[2024-05-04] MEDS: CARDURA 2 MG PO (17:24)
[2024-05-04] MEDS: LIPITOR 10 MG PO (17:24)
--- NOTE | 2024-05-04 18:18 | PTCARENOTE ---
The patient's daughter, Catarina Reese (who is a nurse) is asking if the gatekeeper and the hospitalist can call her at [phone] tomorrow. She is very concerned with his kidney functions, particularly his BUN and GFR. Will pass on to night
shift RN to pass on to day shift nurse tomorrow.
[2024-05-04] MEDS: ATROVENT NEBULES 0.5 MG INH (19:17)
[2024-05-04 20:49] LABS: Blood Urea Nitrogen 44 mg/dl (9-20); Calcium 9.4 mg/dl (8.4-10.2); Carbon Dioxide 25 mmol/L (22-30); Chloride 92 mmol/L (98-107); Estimated Creatinine Clearance 20 ml/min; Glucose 174 mg/dl (70-99); Potassium 4.3 mmol/L (3.5-5.1); Sodium 132 mmol/L (135-145); eGFR 23.43
[2024-05-04] MEDS: MELATONIN 5 MG PO (22:00)
[2024-05-05] VITALS (10 sets, daily range): BP systolic 92–119; BP diastolic 48–71; BMI 31.9
[2024-05-05] MEDS: LASIX 50 IV (04:16)
[2024-05-05 04:49] LABS: Hematocrit 25.1 % (39.0-52.0); Hemoglobin 9.2 g/dL (13.0-18.0); Mean Corp Hgb Conc. 36.7 g/dL (33.0-37.0); Mean Corpuscular Hgb 33.2 pg (27.0-31.0); Mean Corpuscular Volume 90.6 fL (80.0-94.0); Mean Platelet Volume 8.4 fL (7.4-10.4); Platelet Count 154 10^3/uL (130-400); Red Blood Cell Count 2.77 10^6/uL (4.70-6.10); Red Cell Dist. Width 14.3 % (11.5-14.5); White Blood Cell Count 4.9 10^3/uL (4.8-10.8)
[2024-05-05 05:06] LABS: Blood Urea Nitrogen 45 mg/dl (9-20); Calcium 9.2 mg/dl (8.4-10.2); Carbon Dioxide 29 mmol/L (22-30); Chloride 94 mmol/L (98-107); Estimated Creatinine Clearance 20 ml/min; Glucose 113 mg/dl (70-99); Magnesium 2.1 mg/dl (1.6-2.3); Phosphorus 5.4 mg/dl (2.5-4.5); Potassium 3.9 mmol/L (3.5-5.1); Sodium 135 mmol/L (135-145); eGFR 24.56
--- NOTE | 2024-05-05 05:16 | PTCARENOTE ---
Rec'd pt at change of shift. Pt AAOx3, on TELE monitor in NSR with first degree HB, and VSS. IV Lasix currently infusing at 2ml per hour. Pt denies any pain. Pt agree to comply with fluid intake restriction and resting with call rao in reach.
--- NOTE | 2024-05-05 07:38 | W.PN.HOSP.TC ---
Today's Communication/Plan
-
Lasix gtt as per cardio Nephro
daily weights I/O
Monitor Renal Function H&H
zofran prn nausea
start imdur
Assessment / Plan
Assessment / Plan
Physical Exam
General: No acute distress. Appears comfortable at this time. Obese
HEENT: NormoCephalic, Moist mucous membranes and Atraumatic
Respiratory: Clear to auscultation
Cardiac: S1/S2, Regular Rhythm; No Murmur or Rub
GI: Soft, Non Tender, Normal Bowel Sounds and Distended; No Organomegaly
Genito-urinary: Suprapubic Tube
Musculoskeletal: Bilateral lower extremities edema +1
Skin: No Rash
Neuro: AO x 3 and Nonfocal/grossly intact
83M afib CHF CKD HTN Chronic Venous insuff DVT ileus CAD HTN Prostate Kidney Ca here for acute on chronic HFpEF
#hyponatremia/hyperkalemia/i likely hypervolemic
# Chronic kidney disease stage IIIb
-fluid restriction
-diuretics
-samsca prn as per Nephro
-Na since improved
#Acute on Chronic HFpEF
#diastolic HF exacerbation
Suspected cardiorenal syndrome
Kidney function continued to worsen despite hold on Lasix
started on lasix gtt (cont) transferred to IVU for closer monitoring high risk situation
-strict I &O
-daily weight
-fluid restriction
-04/30 chest x ray with No acute cardiopulmonary process. Repeat CXR 05/04 notes no significant change from previous, bibasilar atelectasis possible trace pleural effusion
-[id number]
-ECHO appreciated EF 55% no significant valve abn's
-Cardiology consult appreciated
#Continues to endorse subjective feelings SOB though stable respiratory status room air
#small pleural effusion noted on ECHO
check repeat CXR 05/04
#Iron deficiency
# Anemia of chronic disease
-Receives Procrit as outpatient last dose 2 wks ago typically receives for Hgb<10 (patient received dose here 05/02/24)
-No active bleeding
-Monitor H&H, transfusion if Hgb <8 given cardiac history
-IV iron supplementation x3, converted to oral supplementation
# Essential hypertension
# History of coronary artery disease/cardiac stents
-Blood pressure stable
-Norvasc held to allow room for more aggressive diuresis
-Ranexa on hold d/t worsening kidney function, imdur started 05/05
# Hyperlipidemia
-Statin continued
# Paroxysmal A-fib
-EKG with sinus rhythm with first-degree AV block, incomplete left bundle branch block
-Eliquis continued
-Metoprolol continued
# GERD
-PPI continued
#Nausea
zofran prn
# BPH
-Doxazosin continued
#hxt of kidney ca
-monitored by [facility].
# DVT prophylaxis
-Eliquis
# CODE STATUS
-DNR
Discussed with patient (via language line Dutch translator/interpreter) and patient's Daughter Mita
I spent a total of 57 minutes with the patient or on the floor. More than 50% of this time involved counseling and coordination of care.
Anticipated Discharge: > 48 hours
Subjective/Interval History
-
Date of Service: May 05, 2024
Interviewed with Dutch Language Line Animation Camera Operator. chest discomfort subjective feelings shortness of breath continues to persist despite stable appearance respiratory status on room air saturating well not tachypneic. Weight continues to improve
trending down.
Objective Data
-
Labs:
Laboratory Results
05/04/24 05/05/24
20:24 04:14
WBC 4.9
Hgb 9.2 L
Hct 25.1 L
Plt Count 154
Sodium 132 L 135
Potassium 4.3 3.9
Chloride 92 L 94 L
Carbon Dioxide 25 29
BUN 44 H 45 H
Creatinine 2.6 H 2.5 H
Glucose 174 H 113 H
Calcium 9.4 9.2
Vital Signs:
Vital Signs
Temp Pulse Resp BP Pulse Ox
97.9 F 84 16 116/54 96
05/05/24 06:49 05/05/24 03:00 05/05/24 06:49 05/05/24 03:00 05/05/24 06:49
I&O
05/04/24 05/05/24 05/06/24
06:59 06:59 06:59
Intake Total 384 / 384 974 / 974
Output Total 5025 / 5025 2700 / 2700
Balance -4641 / -4641 -1726 / -1726
[2024-05-05] MEDS: SENOKOT-S 1 TABLET PO ×2 (09:08→19:15)
[2024-05-05] MEDS: TOPROL XL 25 MG PO ×2 (09:08→20:25)
[2024-05-05] MEDS: ELIQUIS 2.5 MG PO ×2 (09:08→19:15)
[2024-05-05] MEDS: FEOSOL 325 MG PO (09:08)
[2024-05-05] MEDS: REFRESH EYE DROPS (PF) 1 DROPS OPHTH ×2 (09:13→19:15)
[2024-05-05] MEDS: NON-FORMULARY ITEM 1 UNIT PO (09:13)
[2024-05-05] MEDS: MIRALAX PO (09:15)
--- NOTE | 2024-05-05 09:43 | W.PN.NEPH.PH ---
Today's Communication / Plan
-
diurese
Assessment/Plan
-
Assessment:
MARIE on CKD 3B (bl Cr 1.4-1.7)
hyponatremia
CHF exacerbation
Anemia
pAFib
GERD
Plan:
follow BMP
continue lasix gtt
no samsca needed
replete K prn, dose today
-
-
Date of Service: May 05, 2024
CC / HPI / ROS
-
Chief Complaint:
MARIE, hyponatremia
History of Present Illness:
Na up to 135
K controlled 3.9
MARIE/Cr up to 2.5
Hgb stable at 9.2
diuresing well with lasix gtt for decompensated HF
Review of Systems:
no CP
feels like he can't get enough air
Labs
-
Labs:
WBC 4.9 10^3/uL (4.8-10.8) 05/05/24 04:14
RBC 2.77 10^6/uL (4.70-6.10) L 05/05/24 04:14
Hgb 9.2 g/dL (13.0-18.0) L 05/05/24 04:14
Hct 25.1 % (39.0-52.0) L 05/05/24 04:14
Plt Count 154 10^3/uL (130-400) 05/05/24 04:14
Sodium 135 mmol/L (135-145) 05/05/24 04:14
Potassium 3.9 mmol/L (3.5-5.1) 05/05/24 04:14
Chloride 94 mmol/L (98-107) L 05/05/24 04:14
Carbon Dioxide 29 mmol/L (22-30) 05/05/24 04:14
BUN 45 mg/dl (9-20) H 05/05/24 04:14
Creatinine 2.5 mg/dL (0.7-1.3) H 05/05/24 04:14
eGFR 24.56 05/05/24 04:14
Glucose 113 mg/dl (70-99) H 05/05/24 04:14
Calcium 9.2 mg/dl (8.4-10.2) 05/05/24 04:14
Phosphorus 5.4 mg/dl (2.5-4.5) H 05/05/24 04:14
Wka-I-Pzhxaxvnaaa Pept 3440 pg/ml 04/30/24 15:54
Albumin 3.4 g/dl (3.5-5.0) L 05/01/24 06:45
Physical Exam
-
Vital Signs:
Vital Signs
Temp Pulse Resp BP Pulse Ox
97.9 F 84 16 116/54 96
05/05/24 06:49 05/05/24 03:00 05/05/24 06:49 05/05/24 03:00 05/05/24 06:49
[2024-05-05] MEDS: KCL 20 MEQ PO (10:21)
--- NOTE | 2024-05-05 11:38 | CM ---
Chart reviewed. Patient is independent of ADLS, lives with his in a 2 [address], ambulates with a RW and has a supportive daughter who helps. Patient receives Home Care Services through [facility]. Patient's daughter is not interested in
VN at this time. She said patient is frequently going to doctors appointments, so no need for VN. Plan is for the patient to return home. CM to follow
[2024-05-05] MEDS: ZOFRAN 4 MG IV (11:43)
[2024-05-05] MEDS: IMDUR (EXTENDED RELEASE) 30 MG PO (13:46)
--- NOTE | 2024-05-05 16:05 | W.PN.CARDCBS ---
Addendum entered and electronically signed by Huan Bain MD 05/05/24 16:35:
I saw and examined the patient.
The GRANULATOR or PA's note was reviewed and I agree with the note.
Comment: General: Well developed, well nourished in NAD.
Neck: Supple, no JVD, HJR, carotids +2 B/L, no bruits bilaterally.
Heart: Non displaced PMI, RRR, no murmurs, No S3, S4, no rubs.
Lungs: Scattered rhonchi
Extremities: No clubbing, cyanosis or edema bilaterally.
Neuro: Grossly nonfocal, awake, alert and oriented x3.
He had chest pain earlier this morning. Will try Imdur. Remains on Lasix drip per nephrology. Overall prognosis is poor. Daughter has been updated. Total visit time between physician and PAs 55 minutes.
Original Note:
Today's Communication / Plan
-
continue IV lasix gtt, follow Cr/CrCl
follow BPs. continue imdur for now. could consider transition back to lower dose ranexa if unable to tolerate imdur
Impression / Plan
-
PCP: Dr. Wolfe
Massage Operator: Dr. BE Diaz
Impression:
Presented with SOB, weight gain
Acute on chronic HFpEF
Hyponatremia
CAD
BMS to LCx 2011
Chronically occluded mid RCA by cath 01/14/2019
Paroxysmal atrial fibrillation
Chronic Eliquis anticoagulation
HTN
HLD
CKD 3b
Chronic anemia
GERD
h/o prostate cancer s/p XRT
Chronic suprapubic catheter
DNR code status
Echo 02/07/2023: EF 65%, mod cLVH, grade I DD, mild MR, trace TR
Echo 05/01/2024: EF 55%, mild cLVH, mild with peak/mean gradients 16/8 mmHg, mild TR, estimated PAP 30-35 mmHg
Plan:
-Presented from cardiology office with acute heart failure exacerbation.
-Initially attempted diuresis with IV lasix 40mg BID, however as he was not responding with rising Cr, started on Lasix gtt 05/03.
-Weight continues to trend down to 179 lbs. with evidence of cardiorenal syndrome. Cr stable at 2.5. nephrology following. continue diuresis with IV lasix gtt
-he has history of CAD with PCI in past. had episode this AM of hypotension, dizziness, chest discomfort, resolved. trop 0.03. EKG asensed vpaced. ranexa was stopped due to CrCl<30 (currently 25) on 05/04. started on imdur 30mg daily later in the day
05/05 without recurrent symptoms. currently feels well. BPs have been stable throughout day. d/w pharmacy, could consider transitioning back to lower dose of ranexa (500mg daily) if unable to tolerate imdur.
-discussed with daughter via telephone that he is not candidate for cath at present given MARIE on CKD. also discussed fluid and salt restrictions with daughter
-Echo 05/01 noted EF 55% with mild as noted above.
-h/o paroxysmal atrial fibrillation noted. HR stable. Continue Eliquis for anticoagulation.
-Continue home doxazosin, and Toprol. norvasc placed on hold as of 05/04.
-Crestor switched to atorvastatin given renal insufficiency. LDL 58.
-Armenian speaking, used ground defence officer. also d/w daughter via telephone
-d/w nursing
HPI: Aden is an 83 year old male with PMH of CAD w/ prior LCx stenting, chronic HFpEF, paroxysmal atrial fibrillation, HTN, HLD, CKD, GERD, and prostate cancer who presented to [facility] for evaluation after being seen in the cardiology office 04/30/2024.
He was seen for evaluation of worsening SOB, edema, and weight gain. He had recently been placed on lower dose of torsemide when his symptoms started developing. In the office. there was concern that he was in acute heart failure and he was referred
to the ER for further workup and management. In ER, he was found to have elevated proBNP and given worsening symptoms consistent with acute heart failure, he was admitted and started on IV lasix. Cardiology consulted for evaluation. He continues to
feel somewhat poorly this morning, but remains on room air.
Progress Note - Massage Operator
Subjective
Date of Service: May 05, 2024
with episode of hypotension, dizziness, chest discomfort this AM. with ANDERSON.
Objective
Labs:
05/05/24 04:14
05/05/24 04:14
Labs
Hgb 9.2 g/dL (13.0-18.0) L 05/05/24 04:14
Hct 25.1 % (39.0-52.0) L 05/05/24 04:14
Plt Count 154 10^3/uL (130-400) 05/05/24 04:14
Sodium 135 mmol/L (135-145) 05/05/24 04:14
Potassium 3.9 mmol/L (3.5-5.1) 05/05/24 04:14
BUN 45 mg/dl (9-20) H 05/05/24 04:14
Creatinine 2.5 mg/dL (0.7-1.3) H 05/05/24 04:14
Glucose 113 mg/dl (70-99) H 05/05/24 04:14
Troponins
05/05/24
10:49
Troponin I 0.030
Vital Signs and I&O:
Vital Signs
Temp Pulse Resp BP Pulse Ox
98.6 F 82 16 116/71 98
05/05/24 15:00 05/05/24 14:31 05/05/24 15:00 05/05/24 14:28 05/05/24 15:00
Vital Signs
Temp Pulse Resp BP Pulse Ox
98.6 F 82 16 116/71 98
05/05/24 15:00 05/05/24 14:31 05/05/24 15:00 05/05/24 14:28 05/05/24 15:00
Intake & Output
05/03/24 05/04/24 05/05/24 05/06/24
07:59 07:59 07:59 07:59
Intake Total 240 / 240 144 / 144 974 / 974
Output Total 1999 / 1999 3025 / 3025 2700 / 2700 1100 / 1100
Balance -1760 / -1760 -2881 / -2881 -1726 / -1726 -1100 / -1100
Physical Exam
Physical Exam
GEN: No distress, awake, alert, oriented x3. sitting in chair. on lasix drip
HEENT: supple, anicteric, mmm, eomi
LUNGS: no audible wheezes
CV: Reg rhythm on tele
EXT: No cyanosis, clubbing. 1+ edema of B/L LE
NEURO: Gross non-focal
SKIN: Warm, pink, dry. No rash
[2024-05-05] MEDS: CARDURA 2 MG PO (17:41)
[2024-05-05] MEDS: LIPITOR 10 MG PO (17:42)
--- NOTE | 2024-05-05 18:39 | PTCARENOTE ---
Pt received this am and assisted oob for breakfast. Pt stated he has occasional dizziness and c/o of chest discomfort. Dr. Marchu in with pt and ordered Imdur. Medicated with Zofran for c/o of nausea with relief. Pt stated he had no further chest
discomfort after the Imdur was started. Pt tolerated oob in the chair all day. IV lasix infusing as ordered.
[2024-05-05] MEDS: ATROVENT NEBULES 0.5 MG INH (19:45)
[2024-05-05] MEDS: MELATONIN 5 MG PO (21:42)
[2024-05-06] VITALS (11 sets, daily range): BP systolic 102–120; BP diastolic 51–84; PULSE 80; O2SAT 99; BMI 31.8
--- NOTE | 2024-05-06 00:54 | PTCARENOTE ---
Pt received start of shift, HR SR w/ 1st degree AV block. Lasix gtt infusing at 20mg/hr. One of the pt's daughters and other family member at bedside. Pt requested med list for daughter, current med list printed. Pt states they are refusing any
Imdur bc they felt very dizzy/lightheaded today when pressure was 96/50. Informed pt and family that episode occurred prior to any imdur administered to pt. Still refusing imdur. Educated on purpose of imdur and toprol to pt and family. Still need
reinforcement on imdur. Pt denies any CP, SOB, or lightheadedness/dizziness. Informed to notify RN if any changes, call rao within reach.
Pt's catheter bag leaking onto floor - unmeasurable. Bag replaced.
[2024-05-06 05:17] LABS: Hematocrit 23.2 % (39.0-52.0); Hemoglobin 8.5 g/dL (13.0-18.0); Mean Corp Hgb Conc. 36.6 g/dL (33.0-37.0); Mean Corpuscular Hgb 33.3 pg (27.0-31.0); Mean Platelet Volume 8.4 fL (7.4-10.4); Platelet Count 143 10^3/uL (130-400); Red Blood Cell Count 2.55 10^6/uL (4.70-6.10); Red Cell Dist. Width 14.3 % (11.5-14.5); White Blood Cell Count 5.6 10^3/uL (4.8-10.8)
[2024-05-06 05:42] LABS: Blood Urea Nitrogen 49 mg/dl (9-20); Calcium 9.3 mg/dl (8.4-10.2); Carbon Dioxide 30 mmol/L (22-30); Chloride 93 mmol/L (98-107); Estimated Creatinine Clearance 18 ml/min; Glucose 117 mg/dl (70-99); Potassium 3.9 mmol/L (3.5-5.1); Sodium 132 mmol/L (135-145); eGFR 21.44
[2024-05-06 05:43] LABS: Blood Urea Nitrogen 49 mg/dl (9-20); Calcium 9.1 mg/dl (8.4-10.2); Carbon Dioxide 31 mmol/L (22-30); Chloride 92 mmol/L (98-107); Estimated Creatinine Clearance 18 ml/min; Glucose 116 mg/dl (70-99); Phosphorus 4.7 mg/dl (2.5-4.5); Sodium 133 mmol/L (135-145); eGFR 21.44
[2024-05-06] MEDS: LASIX 50 IV (06:06)
--- NOTE | 2024-05-06 07:32 | W.PN.HOSP.TC ---
Today's Communication/Plan
-
cont lasix gtt as per nephro cardio
monitor renal function
apply abd binder during day and remove at bedtime, discontinue if not tolerating
monitor orthostatic vitals
imdur switched to Isordil d/t side effect concerns
PT/OT
Assessment / Plan
Assessment / Plan
Physical Exam
General: No acute distress. Appears comfortable at this time. Obese
HEENT: NormoCephalic, Moist mucous membranes and Atraumatic
Respiratory: Clear to auscultation
Cardiac: S1/S2, Regular Rhythm; No Murmur or Rub
GI: Soft, Non Tender, Normal Bowel Sounds and Distended; No Organomegaly
Genito-urinary: Suprapubic Tube
Musculoskeletal: Bilateral lower extremities edema +1
Skin: No Rash
Neuro: AO x 3 and Nonfocal/grossly intact
83M afib CHF CKD HTN Chronic Venous insuff DVT ileus CAD HTN Prostate Kidney Ca here for acute on chronic HFpEF
#hyponatremia/hyperkalemia/i likely hypervolemic
# Chronic kidney disease stage IIIb
-fluid restriction
-diuretics
-samsca prn as per Nephro
-Na since improved
#Acute on Chronic HFpEF
#diastolic HF exacerbation
Suspected cardiorenal syndrome
Kidney function continued to worsen despite hold on Lasix
started on lasix gtt (cont) transferred to IVU for closer monitoring high risk situation
-strict I &O
-daily weight
-fluid restriction
-04/30 chest x ray with No acute cardiopulmonary process. Repeat CXR 05/04 notes no significant change from previous, bibasilar atelectasis possible trace pleural effusion
-[id number]
-ECHO appreciated EF 55% no significant valve abn's
-Cardiology consult appreciated
#Continues to endorse subjective feelings SOB though stable respiratory status room air suspect due to heart failure and physical deconditioning
#small pleural effusion noted on ECHO repeat CXR 05/04 noted trace pleural effusion as above
#Dizziness likely symptomatic orthostatic hypotension
started on compression stockings for lower ext swelling edema
abd binder ordered to be taken off at bedtime and re-applied in morning
monitor orthostatic vitals
#Iron deficiency
# Anemia of chronic disease
-Receives Procrit as outpatient last dose 2 wks ago typically receives for Hgb<10 (patient received dose here 05/02/24)
-No active bleeding
-Monitor H&H, transfusion if Hgb <8 given cardiac history
-IV iron supplementation x3, converted to oral supplementation
# Essential hypertension
# History of coronary artery disease/cardiac stents
#Angina
-Blood pressure stable
-Norvasc held to allow room for more aggressive diuresis
-Ranexa on hold d/t worsening kidney function, imdur started 05/05 switched to isosorbide dinitrate 20 mg BID d/t patient/family concerns not tolerating Imdur
# Hyperlipidemia
-Statin continued
# Paroxysmal A-fib
-EKG with sinus rhythm with first-degree AV block, incomplete left bundle branch block
-Eliquis continued
-Metoprolol continued
# GERD
-PPI continued
#Nausea
zofran prn
# BPH
-Doxazosin continued
#hxt of kidney ca
-monitored by [facility] oncology.
# DVT prophylaxis
-Eliquis
PT/OT
# CODE STATUS
-DNR
Discussed with patient (via language line Nepalese adjuster electrical contacts) and patient's Daughter Mita
I spent a total of 58 minutes with the patient or on the floor. More than 50% of this time involved counseling and coordination of care.
Anticipated Discharge: > 48 hours
Subjective/Interval History
-
Date of Service: May 06, 2024
reports dizziness fatigue shortness of breath with standing ambulation with rolling walker- working with PT/OT. Nausea and chest discomfort since resolved
Objective Data
-
Labs:
Laboratory Results
05/06/24 05/06/24 05/06/24
05:06 05:06 05:06
WBC 5.6
Hgb 8.5 L
Hct 23.2 L
Plt Count 143
Sodium 132 L 133 L
Potassium 3.9 4.0
Chloride 93 L
Carbon Dioxide
BUN
Creatinine
Glucose
Calcium
05/06/24 05/06/24 05/06/24
05:06 05:06 05:06
WBC
Hgb
Hct
Plt Count
Sodium
Potassium
Chloride 92 L
Carbon Dioxide 30 31 H
BUN 49 H 49 H
Creatinine 2.8 H
Glucose
Calcium
05/06/24 05/06/24 05/06/24
05:06 05:06 05:06
WBC
Hgb
Hct
Plt Count
Sodium
Potassium
Chloride
Carbon Dioxide
BUN
Creatinine 2.8 H
Glucose 117 H 116 H
Calcium 9.3 9.1
Vital Signs:
Vital Signs
Temp Pulse Resp BP Pulse Ox
98.6 F 61 16 110/51 96
05/06/24 06:51 05/06/24 05:00 05/06/24 06:51 05/06/24 04:59 05/06/24 06:51
I&O
05/05/24 05/06/24 05/07/24
06:59 06:59 06:59
Intake Total 974 / 974 262 / 262
Output Total 2700 / 2700 1750 / 1750
Balance -1726 / -1726 -1488 / -1488
[2024-05-06] MEDS: REFRESH EYE DROPS (PF) 1 DROPS OPHTH ×2 (08:39→20:07)
[2024-05-06] MEDS: TOPROL XL 25 MG PO ×2 (08:41→20:06)
[2024-05-06] MEDS: FEOSOL 325 MG PO (08:41)
[2024-05-06] MEDS: ELIQUIS 2.5 MG PO ×2 (08:41→20:06)
[2024-05-06] MEDS: SENOKOT-S 1 TABLET PO ×2 (08:42→20:06)
[2024-05-06] MEDS: NON-FORMULARY ITEM 1 UNIT PO (09:53)
[2024-05-06] MEDS: MIRALAX PO (11:32)
[2024-05-06] MEDS: IMDUR (EXTENDED RELEASE) PO (11:32)
--- NOTE | 2024-05-06 11:36 | W.PN.CARDCBS ---
Addendum entered and electronically signed by Thomas Smith MD 05/06/24 13:41:
I saw and examined the patient.
The Line Supply's note was reviewed and I agree with the note.
Comment: Briefly, 83M PMHx HFpEF, CAD s/p BMS, AFib and CKD presenting in acute decompensated heart failure
Weight is down significantly compared to admission but remains mildly volume overloaded on exam
Will defer diuresis to nephrology, currently on Lasix drip
Not an ideal candidate for Aldactone or SGLT2 given renal insufficiency
History of CAD with prior BMS to the LCx and BROKER ASSISTANT of the RCA
Continue high intensity statin and Eliquis
Ranexa discontinued due to renal insufficiency
Will trial isosorbide as an alternative antianginal
History of A-fib, but currently maintaining sinus rhythm
Addendum entered and electronically signed by Lyubov Bird PA-C 05/06/24 12:24:
will add tubigrip stockings for LE edema.
d/w case with nephrology.
Original Note:
Today's Communication / Plan
-
Creatinine up slightly overnight, defer transition of IV diuretic to p.o. to nephrology
Will stop Imdur and transition to isosorbide dinitrate 20 mg twice daily after discussion with daughter
Impression / Plan
-
PCP: Dr. Wolfe
Stock And Station Agent: Dr. BE Diaz
Impression:
Presented with SOB, weight gain
Acute on chronic HFpEF
Hyponatremia
CAD
BMS to LCx 2011
Chronically occluded mid RCA by cath 01/14/2019
Paroxysmal atrial fibrillation
Chronic Eliquis anticoagulation
HTN
HLD
CKD 3b
Chronic anemia
GERD
h/o prostate cancer s/p XRT
Chronic suprapubic catheter
DNR code status
Echo 02/07/2023: EF 65%, mod cLVH, grade I DD, mild MR, trace TR
Echo 05/01/2024: EF 55%, mild cLVH, mild with peak/mean gradients 16/8 mmHg, mild TR, estimated PAP 30-35 mmHg
Plan:
-Presented from cardiology office with acute heart failure exacerbation.
-Initially attempted diuresis with IV lasix 40mg BID, however as he was not responding with rising Cr, started on Lasix gtt 05/03.
-Weight continues to trend down. with evidence of cardiorenal syndrome. Cr up to 2.8. nephrology following. consider transitioning to po lasix
-he has history of CAD with PCI in past. no further CP overnight. trop 0.03. EKG asensed vpaced. ranexa was stopped due to CrCl<30 (currently 25) on 05/04. started on imdur 30mg daily later in the day 05/05 without recurrent symptoms. BPs stable
overnight. Patient's daughter prefers to not resume Imdur or Ranexa. We discussed placing on isosorbide dinitrate 20 mg twice daily and she is agreeable to try this.
-Echo 05/01 noted EF 55% with mild as noted above.
-h/o paroxysmal atrial fibrillation noted. HR stable. Continue Eliquis for anticoagulation.
-Continue home doxazosin, and Toprol. norvasc placed on hold as of 05/04.
-Crestor switched to atorvastatin given renal insufficiency. LDL 58.
-will arrange OP cardiac follow up
-d/w daughter via telephone
-d/w nursing
HPI: Aden is an 83 year old male with PMH of CAD w/ prior LCx stenting, chronic HFpEF, paroxysmal atrial fibrillation, HTN, HLD, CKD, GERD, and prostate cancer who presented to [facility] for evaluation after being seen in the cardiology office 04/30/2024.
He was seen for evaluation of worsening SOB, edema, and weight gain. He had recently been placed on lower dose of torsemide when his symptoms started developing. In the office. there was concern that he was in acute heart failure and he was referred
to the ER for further workup and management. In ER, he was found to have elevated proBNP and given worsening symptoms consistent with acute heart failure, he was admitted and started on IV lasix. Cardiology consulted for evaluation. He continues to
feel somewhat poorly this morning, but remains on room air.
Progress Note - Stock And Station Agent
Subjective
Date of Service: May 06, 2024
No issues overnight. No recurrent chest pain
Objective
Labs:
05/06/24 05:06
05/06/24 05:06
Labs
Hgb 8.5 g/dL (13.0-18.0) L 05/06/24 05:06
Hct 23.2 % (39.0-52.0) L 05/06/24 05:06
Plt Count 143 10^3/uL (130-400) 05/06/24 05:06
Sodium 132 mmol/L (135-145) L 05/06/24 05:06
Sodium 133 mmol/L (135-145) L 05/06/24 05:06
Potassium 3.9 mmol/L (3.5-5.1) 05/06/24 05:06
Potassium 4.0 mmol/L (3.5-5.1) 05/06/24 05:06
BUN 49 mg/dl (9-20) H 05/06/24 05:06
BUN 49 mg/dl (9-20) H 05/06/24 05:06
Creatinine 2.8 mg/dL (0.7-1.3) H 05/06/24 05:06
Creatinine 2.8 mg/dL (0.7-1.3) H 05/06/24 05:06
Glucose 116 mg/dl (70-99) H 05/06/24 05:06
Glucose 117 mg/dl (70-99) H 05/06/24 05:06
Troponins
05/05/24
10:49
Troponin I 0.030
Vital Signs and I&O:
Vital Signs
Temp Pulse Resp BP Pulse Ox
98 F 64 16 120/55 99
05/06/24 11:13 05/06/24 07:00 05/06/24 11:13 05/06/24 06:54 05/06/24 11:13
Vital Signs
Temp Pulse Resp BP Pulse Ox
98 F 64 16 120/55 99
05/06/24 11:13 05/06/24 07:00 05/06/24 11:13 05/06/24 06:54 05/06/24 11:13
Intake & Output
05/04/24 05/05/24 05/06/24 05/07/24
07:59 07:59 07:59 07:59
Intake Total 144 / 144 974 / 974 262 / 262
Output Total 3025 / 3025 2700 / 2700 1750 / 1750
Balance -2881 / -2881 -1726 / -1726 -1488 / -1488
Physical Exam
Physical Exam
GEN: No distress, awake, alert, oriented x3. sitting in chair. on lasix drip
HEENT: supple, anicteric, mmm, eomi
LUNGS: no audible wheezes
CV: Reg rhythm on tele
EXT: No cyanosis, clubbing. 1+ edema of B/L LE
NEURO: Gross non-focal
SKIN: Warm, pink, dry. No rash
--- NOTE | 2024-05-06 12:36 | W.PN.NEPH.PH ---
Today's Communication / Plan
-
see plan
Assessment/Plan
-
Assessment:
MARIE on CKD 3B (bl Cr 1.4-1.7)
hyponatremia
CHF exacerbation
Anemia
pAFib
GERD
Plan:
cr cont to rise at 2.8
wt slowly improving on lasix gtt
suspect may accept higher cr to maintain vol status
all edema is not amenable for diuresis
BPs are soft, meds adjusted per cards, off CCB since 05/03
hyponatremia stable
monitor met alkalosis
anemia-stable hb on biweekly epo
if cr is up tomorrow may need to back off lasix
strict FR and elevate legs
spoke with pt through flooring professional and explained the complexity of cardiorenal disease
d/w daughter over phone and answered all the questions
reviewed high risk of SHAPING MACHINE TENDER if fails to respond, hopefully he can escape SHAPING MACHINE TENDER this admit
d/w nursing and cards
TT spent 60min
high rsik encounter
-
-
Date of Service: May 06, 2024
CC / HPI / ROS
-
Chief Complaint:
MARIE, hyponatremia
History of Present Illness:
Na slightly low at 132
K controlled 4
MARIE/Cr up to 2.8
Hgb stable at 8.6
diuresing well with lasix gtt for decompensated HF
BP soft
Review of Systems:
no CP
feels like he can't get enough air
edema improving
mild dizziness, lowered imdur
Labs
-
Labs:
WBC 5.6 10^3/uL (4.8-10.8) 05/06/24 05:06
RBC 2.55 10^6/uL (4.70-6.10) L 05/06/24 05:06
Hgb 8.5 g/dL (13.0-18.0) L 05/06/24 05:06
Hct 23.2 % (39.0-52.0) L 05/06/24 05:06
Plt Count 143 10^3/uL (130-400) 05/06/24 05:06
Sodium 132 mmol/L (135-145) L 05/06/24 05:06
Sodium 133 mmol/L (135-145) L 05/06/24 05:06
Potassium 3.9 mmol/L (3.5-5.1) 05/06/24 05:06
Potassium 4.0 mmol/L (3.5-5.1) 05/06/24 05:06
Chloride 92 mmol/L (98-107) L 05/06/24 05:06
Chloride 93 mmol/L (98-107) L 05/06/24 05:06
Carbon Dioxide 30 mmol/L (22-30) 05/06/24 05:06
Carbon Dioxide 31 mmol/L (22-30) H 05/06/24 05:06
BUN 49 mg/dl (9-20) H 05/06/24 05:06
BUN 49 mg/dl (9-20) H 05/06/24 05:06
Creatinine 2.8 mg/dL (0.7-1.3) H 05/06/24 05:06
Creatinine 2.8 mg/dL (0.7-1.3) H 05/06/24 05:06
eGFR 21.44 05/06/24 05:06
eGFR 21.44 05/06/24 05:06
Glucose 116 mg/dl (70-99) H 05/06/24 05:06
Glucose 117 mg/dl (70-99) H 05/06/24 05:06
Calcium 9.1 mg/dl (8.4-10.2) 05/06/24 05:06
Calcium 9.3 mg/dl (8.4-10.2) 05/06/24 05:06
Phosphorus 4.7 mg/dl (2.5-4.5) H 05/06/24 05:06
Hxm-Q-Fycvdhjxkfc Pept 3440 pg/ml 04/30/24 15:54
Albumin 3.4 g/dl (3.5-5.0) L 05/01/24 06:45
Physical Exam
-
Vital Signs:
Vital Signs
Temp Pulse Resp BP Pulse Ox
98 F 64 16 120/55 99
05/06/24 11:13 05/06/24 07:00 05/06/24 11:13 05/06/24 06:54 05/06/24 11:13
Cardiovascular:: Regular rate and rhythm
Respiratory:: Bilateral: Rales (bases)
Lung Excursion:: Normal
Abdomen:: Nontender and Soft
Extremity Edema:: +2: Bilateral:
Juarez Catheter: Yes
--- NOTE | 2024-05-06 13:03 | W.HF.CON ---
Heart Failure
- LV Function
Left ventricular function study result: LV Ejection fraction >40%
Ejection Fraction Percentage: 55
- ARNI
Patient already on ARNI: No
Heart Failure ARNI Not Indicated: LV Ejection Fraction >/= 40%
- ACEI/ARB
Patient already on ACEI/ARB: No
Heart Failure ACEI/ARB Not Indicated: LV Ejection Fraction > 40%
- Beta Aiden
Patient already on Evidence Based Beta Aiden: Yes
- Mineralocorticord Receptor Antagonist
Patient already on MRA: No
Heart Failure MRA Not Indicated: LV Ejection Fraction > 40%
- SGLT-2 Inhibitor
Patient already on SGLT-2 Inhibitor: No
Heart Failure SGLT-2 Inhibitor Not Indicated: LV Ejection Fraction >40%
- Afib Anticoagulation
Patient already on Anticoagulation for Afib: Yes
- NYHA CHF Classification
NYHA CHF Classification Level: Class III - Symptoms w/ min exertion, interferes w/ nml daily activity
- ACC/AHA Stage
ACC/AHA Stage: Stage C: Symptomatic Heart Failure
[2024-05-06] MEDS: ISORDIL 10 MG PO ×2 (13:50→20:09)
[2024-05-06] MEDS: CARDURA 2 MG PO (17:01)
[2024-05-06] MEDS: LIPITOR 10 MG PO (17:01)
--- NOTE | 2024-05-06 18:00 | PTCARENOTE ---
Pt oob with the walker and 1 assist to the bathroom and the chair. Pt tolerated oob at day. Encouraged pt to keep legs elevated. Tubigrip stockings applied to bilateral legs. Pt states he has occasional chest discomfort. Denies any sob at rest. Room
air sat 98%. No c/o offered.
[2024-05-06] MEDS: ATROVENT NEBULES 0.5 MG INH (20:48)
[2024-05-06] MEDS: MELATONIN 5 MG PO (21:08)
[2024-05-07] VITALS (12 sets, daily range): BP systolic 96–128; BP diastolic 54–71; PULSE 67–75; BMI 31.3
--- NOTE | 2024-05-07 00:34 | PTCARENOTE ---
Pt received start of shift, HR SR w/ 1st degree. Lasix gtt infusing at 20mg/hr. compression socks removed HS. Pt denies any CP, informed to notify RN if any changes.
[2024-05-07 05:31] LABS: Hematocrit 24.5 % (39.0-52.0); Hemoglobin 8.7 g/dL (13.0-18.0); Mean Corp Hgb Conc. 35.5 g/dL (33.0-37.0); Mean Corpuscular Hgb 33.7 pg (27.0-31.0); Mean Platelet Volume 8.4 fL (7.4-10.4); Platelet Count 151 10^3/uL (130-400); Red Blood Cell Count 2.58 10^6/uL (4.70-6.10); Red Cell Dist. Width 14.4 % (11.5-14.5); White Blood Cell Count 5.7 10^3/uL (4.8-10.8)
[2024-05-07 05:54] LABS: Blood Urea Nitrogen 54 mg/dl (9-20); Calcium 9.1 mg/dl (8.4-10.2); Carbon Dioxide 32 mmol/L (22-30); Chloride 94 mmol/L (98-107); Estimated Creatinine Clearance 18 ml/min; Glucose 114 mg/dl (70-99); Phosphorus 4.6 mg/dl (2.5-4.5); Potassium 3.7 mmol/L (3.5-5.1); Sodium 135 mmol/L (135-145); eGFR 21.44
[2024-05-07 09:36] LABS: NT-proBNP 1700 pg/ml
[2024-05-07] MEDS: TOPROL XL 25 MG PO (09:59)
[2024-05-07] MEDS: ELIQUIS 2.5 MG PO ×2 (09:59→19:59)
[2024-05-07] MEDS: REFRESH EYE DROPS (PF) 1 DROPS OPHTH ×2 (09:59→19:59)
[2024-05-07] MEDS: ISORDIL 10 MG PO ×2 (09:59→19:59)
[2024-05-07] MEDS: FEOSOL 325 MG PO (10:00)
[2024-05-07] MEDS: MIRALAX PO ×2 (10:00→10:51)
[2024-05-07] MEDS: SENOKOT-S 1 TABLET PO ×2 (10:00→19:59)
[2024-05-07] MEDS: NON-FORMULARY ITEM 1 UNIT PO (10:00)
[2024-05-07] MEDS: LASIX 50 IV (10:51)
--- NOTE | 2024-05-07 11:48 | PTCARENOTE ---
Patient having episodes of of increased heart rate into 140-150's. Patient state she feels dizzy with those episodes per [place] foreign language interpreter. PA's aware. Nephrology at bedside and witnessed episodes.
--- NOTE | 2024-05-07 11:54 | CM ---
Chart reviewed. Patient is independent of ADLS, lives with his in a [address], ambulates with a RW and has a supportive daughter who helps. Patient receives Home Care Services through [facility]. Patient's daughter is not interested in
VN at this time. She said patient is frequently going to doctors appointments, so no need for VN. Plan is for the patient to return home. CM to follow
--- NOTE | 2024-05-07 12:04 | W.PN.NEPH.PH ---
Today's Communication / Plan
-
wean off lasix gtt and change to 80mg IV TID
Assessment/Plan
-
Assessment:
MARIE on CKD 3B (bl Cr 1.4-1.7)
hyponatremia
CHF exacerbation
Anemia
pAFib
GERD
Plan:
cr remains high at 2.8
wt slowly improving on lasix gtt
suspect may accept higher cr to maintain vol status
all edema is not amenable for diuresis
BPs are soft off CCB since 05/03
hyponatremia improving
monitor met alkalosis
anemia-stable hb on biweekly epo as out pt
intermittent tachycardia with dizziness, replace k , mg ok
likely wean off lasix gtt today and start lasix 80mg TID
strict FR and elevate legs
spoke with pt through hose cementer and explained the complexity of cardiorenal disease
we reviewed risk of MANAGER FLIGHT OPERATIONS if kidney function worsens-he refuses to have dialysis
on 05/06 Dr Selby d/w daughter over phone and answered all the questions
reviewed high risk of MANAGER FLIGHT OPERATIONS if fails to respond, hopefully he can escape MANAGER FLIGHT OPERATIONS this admit
d/w nursing and cards
TT spent 40min
high rsik encounter
-
-
Date of Service: May 07, 2024
CC / HPI / ROS
-
Chief Complaint:
MARIE, hyponatremia
History of Present Illness:
Na slightly low at 135
K controlled 3.7
MARIE/Cr up to 2.8-no change
Hgb stable at 8.7
diuresing well with lasix gtt for decompensated HF
BP soft
Review of Systems:
no CP
edema improving
c/o dizziness more and noted intermittent tachycardia over 140s
Labs
-
Labs:
WBC 5.7 10^3/uL (4.8-10.8) 05/07/24 05:03
RBC 2.58 10^6/uL (4.70-6.10) L 05/07/24 05:03
Hgb 8.7 g/dL (13.0-18.0) L 05/07/24 05:03
Hct 24.5 % (39.0-52.0) L 05/07/24 05:03
Plt Count 151 10^3/uL (130-400) 05/07/24 05:03
Sodium 135 mmol/L (135-145) 05/07/24 05:03
Potassium 3.7 mmol/L (3.5-5.1) 05/07/24 05:03
Chloride 94 mmol/L (98-107) L 05/07/24 05:03
Carbon Dioxide 32 mmol/L (22-30) H 05/07/24 05:03
BUN 54 mg/dl (9-20) H 05/07/24 05:03
Creatinine 2.8 mg/dL (0.7-1.3) H 05/07/24 05:03
eGFR 21.44 05/07/24 05:03
Glucose 114 mg/dl (70-99) H 05/07/24 05:03
Calcium 9.1 mg/dl (8.4-10.2) 05/07/24 05:03
Phosphorus 4.6 mg/dl (2.5-4.5) H 05/07/24 05:03
Qzp-S-Dqurdacefqd Pept 1700 pg/ml 05/07/24 05:03
Albumin 3.4 g/dl (3.5-5.0) L 05/01/24 06:45
Physical Exam
-
Vital Signs:
Vital Signs
Temp Pulse Resp BP Pulse Ox
98.5 F 81 20 122/71 96
05/07/24 06:51 05/07/24 10:00 05/07/24 06:51 05/07/24 09:20 05/07/24 09:15
Cardiovascular:: Regular rate and rhythm
Respiratory:: Bilateral: Rales (at bases)
Lung Excursion:: Normal
Abdomen:: Nontender and Soft
Extremity Edema:: +1: Bilateral:
Juarez Catheter: No
[2024-05-07] MEDS: KCL 40 MEQ PO (12:32)
--- NOTE | 2024-05-07 13:29 | W.PN.CARDCBS ---
Addendum entered and electronically signed by Thomas Smith MD 05/07/24 18:17:
I saw and examined the patient.
The Gasket Former's note was reviewed and I agree with the note.
Comment: Briefly, 83M PMHx HFpEF, CAD s/p BMS, paroxysmal AFib and CKD presenting in acute decompensated heart failure
Weight is down significantly compared to admission
Lasix drip being transitioned to intermittent dosing - will defer diuresis to nephrology
Not an ideal candidate for Aldactone or SGLT2 given renal insufficiency
History of CAD with prior BMS to the LCx and SUPERINTENDENT SANITATION of the RCA
Continue high intensity statin and Eliquis
Ranexa discontinued due to renal insufficiency
Isosorbide started as an alternative antianginal
Uptitrate metoprolol
History of A-fib, bursts of SVT seen on tele, continue to monitor, uptitrate BB
Original Note:
Today's Communication / Plan
-
Transitioned off of IV Lasix drip. May need to reduce IV Lasix dose further as concern for patient being intravascularly dry
Replete K
Increase beta-allison. May require addition of amiodarone if remains with paroxysms of A. tach/A-fib
Impression / Plan
-
PCP: Dr. Wolfe
Director Of Infection Prevention: Dr. BE Diaz
Impression:
Presented with SOB, weight gain
Acute on chronic HFpEF
Hyponatremia
CAD
BMS to LCx 2011
Chronically occluded mid RCA by cath 01/14/2019
Paroxysmal atrial fibrillation
Chronic Eliquis anticoagulation
HTN
HLD
CKD 3b
Chronic anemia
GERD
h/o prostate cancer s/p XRT
Chronic suprapubic catheter
DNR code status
Echo 02/07/2023: EF 65%, mod cLVH, grade I DD, mild MR, trace TR
Echo 05/01/2024: EF 55%, mild cLVH, mild with peak/mean gradients 16/8 mmHg, mild TR, estimated PAP 30-35 mmHg
Plan:
-Presented from cardiology office with acute heart failure exacerbation.
-Initially attempted diuresis with IV lasix 40mg BID, however as he was not responding with rising Cr, started on Lasix gtt 05/03. Cr stable at 2.8. d/w nephrology, transitioning off lasix gtt to IV lasix 80mg TID 05/07, may need to reduce further as
complains of dizziness. Suspect now on dry side.
-Orthostatic vital signs negative 05/07
-replete K
-he is noted to be having several brief runs of afib vs atach on tele. Will increase beta-allison. He has history of paroxysmal atrial fibrillation. Continue Eliquis. May need to consider for amiodarone
-he has history of CAD with PCI in past. no further CP overnight. trop 0.03. EKG asensed vpaced. ranexa was stopped due to CrCl<30 (currently 25) on 05/04. started on imdur 30mg daily later in the day 05/05 without recurrent symptoms. BPs stable
overnight. Patient's daughter prefers to not resume Imdur or Ranexa. Tolerating isosorbide dinitrate 10 mg BID
-Echo 05/01 noted EF 55% with mild as noted above.
-Continue home doxazosin. norvasc stopped this admission
-Crestor switched to atorvastatin given renal insufficiency. LDL 58.
-will arrange OP cardiac follow up
-d/w nursing
HPI: Aden is an 83 year old male with PMH of CAD w/ prior LCx stenting, chronic HFpEF, paroxysmal atrial fibrillation, HTN, HLD, CKD, GERD, and prostate cancer who presented to [facility] for evaluation after being seen in the cardiology office 04/30/2024.
He was seen for evaluation of worsening SOB, edema, and weight gain. He had recently been placed on lower dose of torsemide when his symptoms started developing. In the office. there was concern that he was in acute heart failure and he was referred
to the ER for further workup and management. In ER, he was found to have elevated proBNP and given worsening symptoms consistent with acute heart failure, he was admitted and started on IV lasix. Cardiology consulted for evaluation. He continues to
feel somewhat poorly this morning, but remains on room air.
Progress Note - Director Of Infection Prevention
Subjective
Date of Service: May 07, 2024
Complains of some dizziness
Objective
Labs:
05/07/24 05:03
05/07/24 05:03
Labs
Hgb 8.7 g/dL (13.0-18.0) L 05/07/24 05:03
Hct 24.5 % (39.0-52.0) L 05/07/24 05:03
Plt Count 151 10^3/uL (130-400) 05/07/24 05:03
Sodium 135 mmol/L (135-145) 05/07/24 05:03
Potassium 3.7 mmol/L (3.5-5.1) 05/07/24 05:03
BUN 54 mg/dl (9-20) H 05/07/24 05:03
Creatinine 2.8 mg/dL (0.7-1.3) H 05/07/24 05:03
Glucose 114 mg/dl (70-99) H 05/07/24 05:03
Troponins
05/05/24
10:49
Troponin I 0.030
Vital Signs and I&O:
Vital Signs
Temp Pulse Resp BP Pulse Ox
98.3 F 81 18 122/71 97
05/07/24 12:06 05/07/24 10:00 05/07/24 12:06 05/07/24 09:20 05/07/24 12:06
Vital Signs
Temp Pulse Resp BP Pulse Ox
98.3 F 81 18 122/71 97
05/07/24 12:06 05/07/24 10:00 05/07/24 12:06 05/07/24 09:20 05/07/24 12:06
Intake & Output
05/05/24 05/06/24 05/07/24 05/08/24
07:59 07:59 07:59 07:59
Intake Total 974 / 974 262 / 262 120 / 360 240 / 240
Output Total 2700 / 2700 1750 / 1750 2350 / 2350 1000 / 1000
Balance -1726 / -1726 -1488 / -1488 -2230 / -1990 -760 / -760
[2024-05-07] MEDS: LASIX 80 MG IV (13:38)
--- NOTE | 2024-05-07 13:40 | W.PN.HOSP.TC ---
Today's Communication/Plan
-
Monitor vital signs
See plan
Continue with Lasix
Nephrology and cardiology following
Assessment / Plan
Assessment / Plan
Physical Exam
General: No acute distress. Appears comfortable at this time. Obese
HEENT: NormoCephalic, Moist mucous membranes and Atraumatic
Respiratory: Clear to auscultation
Cardiac: S1/S2, Regular Rhythm; No Murmur or Rub
GI: Soft, Non Tender, Normal Bowel Sounds and Distended
Genito-urinary: Suprapubic Tube
Musculoskeletal: Bilateral lower extremities edema +1
Skin: No Rash
Neuro: AO x 3 and Nonfocal/grossly intact
83M afib CHF CKD HTN Chronic Venous insuff DVT ileus CAD HTN Prostate Kidney Ca here for acute on chronic HFpEF
#hyponatremia/hyperkalemia/i likely hypervolemic
# Chronic kidney disease stage IIIb
-fluid restriction
-diuretics
-samsca prn as per Nephro
-Na since improved
#Acute on Chronic HFpEF
#diastolic HF exacerbation
Suspected cardiorenal syndrome
Kidney function continued to worsen despite hold on Lasix
Was on Lasix drip, nephrology transitioning into IV Lasix
-strict I &O
-daily weight
-fluid restriction
-04/30 chest x ray with No acute cardiopulmonary process. Repeat CXR 05/04 notes no significant change from previous, bibasilar atelectasis possible trace pleural effusion
-[id number]
-ECHO appreciated EF 55% no significant valve abn's
-Cardiology consult appreciated
#Continues to endorse subjective feelings SOB though stable respiratory status room air suspect due to heart failure and physical deconditioning
#small pleural effusion noted on ECHO repeat CXR 05/04 noted trace pleural effusion as above
#Dizziness likely symptomatic orthostatic hypotension
started on compression stockings for lower ext swelling edema
abd binder ordered to be taken off at bedtime and re-applied in morning
monitor orthostatic vitals
#Iron deficiency
# Anemia of chronic disease
-Receives Procrit as outpatient last dose 2 wks ago typically receives for Hgb<10 (patient received dose here 05/02/24)
-No active bleeding
-Monitor H&H, transfusion if Hgb <8 given cardiac history
-IV iron supplementation x3, converted to oral supplementation
# Essential hypertension
# History of coronary artery disease/cardiac stents
#Angina
-Blood pressure stable
-Norvasc held to allow room for more aggressive diuresis
-Ranexa on hold d/t worsening kidney function, imdur started 05/05 switched to isosorbide dinitrate 20 mg BID d/t patient/family concerns not tolerating Imdur
# Hyperlipidemia
-Statin continued
# Paroxysmal A-fib
-EKG with sinus rhythm with first-degree AV block, incomplete left bundle branch block
-Eliquis continued
-Metoprolol continued
# GERD
-PPI continued
#Nausea
zofran prn
# BPH
-Doxazosin continued
#hxt of kidney ca
-monitored by [facility].
# DVT prophylaxis
-Eliquis
PT/OT
# CODE STATUS
-DNR
Discussed with patient (via language line Venezuelan loan originator)
I spent a total of 52 minutes with the patient or on the floor. More than 50% of this time involved counseling and coordination of care.
Anticipated Discharge: > 48 hours
Subjective/Interval History
-
Date of Service: May 07, 2024
Denies chest pain
Objective Data
-
Labs:
Laboratory Results
05/07/24 05/07/24
00:30 05:03
WBC 5.7
Hgb 8.7 L
Hct 24.5 L
Plt Count 151
Sodium Cancelled 135
Potassium Cancelled 3.7
Chloride Cancelled 94 L
Carbon Dioxide Cancelled 32 H
BUN Cancelled 54 H
Creatinine Cancelled 2.8 H
Glucose Cancelled 114 H
Calcium Cancelled 9.1
Vital Signs:
Vital Signs
Temp Pulse Resp BP Pulse Ox
98.3 F 81 18 122/71 97
05/07/24 12:06 05/07/24 10:00 05/07/24 12:06 05/07/24 09:20 05/07/24 12:06
I&O
05/06/24 05/07/24 05/08/24
06:59 06:59 06:59
Intake Total 262 / 262 120 / 120 240 / 240
Output Total 1750 / 1750 2350 / 2350 1000 / 1000
Balance -1488 / -1488 -2230 / -2230 -760 / -760
--- NOTE | 2024-05-07 17:40 | PTCARENOTE ---
Pt having some runs of ST vs SVT, at rates 120-140's, BP 102/55. Lyubov Bird aware. Order to hold 1700 dose of Lasix.
[2024-05-07] MEDS: LIPITOR 10 MG PO (17:50)
[2024-05-07] MEDS: CARDURA 2 MG PO (17:50)
[2024-05-07] MEDS: ATROVENT NEBULES 0.5 MG INH (19:34)
[2024-05-07] MEDS: TOPROL XL 50 MG PO (21:43)
[2024-05-07] MEDS: MELATONIN 5 MG PO (21:43)
[2024-05-08] VITALS (13 sets, daily range): BP systolic 90–128; BP diastolic 56–90; PULSE 68–82; O2SAT 98; BMI 31.3
--- NOTE | 2024-05-08 00:56 | PTCARENOTE ---
received patient at the change of shift. AAOx3-[place] Islander speaking. translate through patient's daughter. denies any pain. SR with a first degree AVB-80s-90s. bp stable. ambulated to the bathroom with RN assistance. partial bath completed. tolerated.
patient denied any lightheadedness/dizziness. catheter care provided. educated patient to inform Rn with any new changes and assistance oob. call rao within reach. makes needs known.
[2024-05-08 05:17] LABS: Hematocrit 25.2 % (39.0-52.0); Hemoglobin 8.9 g/dL (13.0-18.0); Mean Corp Hgb Conc. 35.3 g/dL (33.0-37.0); Mean Corpuscular Hgb 33.7 pg (27.0-31.0); Mean Corpuscular Volume 95.5 fL (80.0-94.0); Mean Platelet Volume 8.8 fL (7.4-10.4); Platelet Count 162 10^3/uL (130-400); Red Blood Cell Count 2.64 10^6/uL (4.70-6.10); Red Cell Dist. Width 14.6 % (11.5-14.5); White Blood Cell Count 6.2 10^3/uL (4.8-10.8)
[2024-05-08 05:39] LABS: Blood Urea Nitrogen 55 mg/dl (9-20); Calcium 9.4 mg/dl (8.4-10.2); Carbon Dioxide 29 mmol/L (22-30); Chloride 95 mmol/L (98-107); Estimated Creatinine Clearance 21 ml/min; Glucose 118 mg/dl (70-99); Phosphorus 4.4 mg/dl (2.5-4.5); Potassium 4.1 mmol/L (3.5-5.1); Sodium 136 mmol/L (135-145)
[2024-05-08] MEDS: SENOKOT-S 1 TABLET PO ×2 (08:02→19:58)
[2024-05-08] MEDS: TOPROL XL 50 MG PO ×2 (08:03→19:58)
[2024-05-08] MEDS: ISORDIL 10 MG PO ×2 (08:04→19:58)
[2024-05-08] MEDS: FEOSOL 325 MG PO (08:04)
[2024-05-08] MEDS: ELIQUIS 2.5 MG PO ×2 (08:04→19:58)
[2024-05-08] MEDS: NON-FORMULARY ITEM 1 UNIT PO (08:05)
[2024-05-08] MEDS: REFRESH EYE DROPS (PF) 1 DROPS OPHTH ×2 (08:06→19:59)
[2024-05-08] MEDS: MIRALAX 17 GRAMS PO (08:06)
[2024-05-08] MEDS: LASIX 80 MG IV (08:06)
--- NOTE | 2024-05-08 09:15 | PTCARENOTE ---
Rec'd Pt awake and alert, speaks Uruguayan, used ipad rn unit manager w/ Dr Plata, oriented x3, denies pain, denies difficulty breathing. Lungs clear, decreased at bases. Pt on RA, O2 sat 96%.
--- NOTE | 2024-05-08 09:36 | W.PN.CARDCBS ---
Today's Communication / Plan
-
Transition IV Lasix to oral Torsemide
Monitor response over the next 24-48 hours
Discharge plan
Impression / Plan
-
PCP: Dr. Wolfe
Kettle Cook: Dr. BE Diaz
Impression:
Presented with SOB, weight gain
Acute on chronic HFpEF
Hyponatremia
CAD
BMS to LCx 2011
Chronically occluded mid RCA by cath 01/14/2019
Paroxysmal atrial fibrillation
Chronic Eliquis anticoagulation
HTN
HLD
CKD 3b
Chronic anemia
GERD
h/o prostate cancer s/p XRT
Chronic suprapubic catheter
DNR code status
Echo 02/07/2023: EF 65%, mod cLVH, grade I DD, mild MR, trace TR
Echo 05/01/2024: EF 55%, mild cLVH, mild with peak/mean gradients 16/8 mmHg, mild TR, estimated PAP 30-35 mmHg
Plan:
Acute on chronic heart failure with preserved ejection fraction with cardiorenal syndrome
-Initial proBNP 3440 04/30/2024 has improved to 1700 05/07/2024
-22 pound weight loss this admission initially with IV Lasix drip which was transitioned to Lasix 80 mg IV TID yesterday. Patient's evening Lasix dose was held due to dizziness/hypotension
-Case discussed with nephrology: Patient was on furosemide 20 mg daily as an outpatient and we will increase this today to torsemide 40 mg p.o. twice daily.
-Would monitor on oral diuretics next 24-48 hours to ensure stability
-Reduce Cardura to 1 mg p.o. nightly for low blood pressure trend
-Goal-directed medical therapy at this point limited by renal function: Ranexa stopped this admission given renal contraindication. Rosuvastatin changed to atorvastatin secondary to renal insufficiency.
Acute on chronic renal insufficiency with history of prostate cancer status post radiation and a chronic suprapubic catheter
-Appreciate nephrology input
-Patient follows with Dr. Jimenez as an outpatient with creatinine stable and at baseline.
-Creatinine improved today, 2.4
-Monitor renal function electrolytes closely
Hyponatremia
-Sodium is improved after Samsca and IV diuresis.
-Sodium today 3.6, potassium 4.1.
Normocytic anemia
-Status post IV iron
-Hemoglobin stable, 8.9 g/dL
History of coronary artery disease with prior bare-metal stent to circumflex artery in 2012 and a TCO of the mid RCA in 2019
-No chest pain suggestive of angina
-Continue beta-allison, statin
History of paroxysmal atrial fibrillation currently in sinus rhythm
-Continue metoprolol and renally dosed Eliquis
Discussed with hospitalist and nephrology
HPI: Aden is an 83 year old male with PMH of CAD w/ prior LCx stenting, chronic HFpEF, paroxysmal atrial fibrillation, HTN, HLD, CKD, GERD, and prostate cancer who presented to [facility] for evaluation after being seen in the cardiology office 04/30/2024.
He was seen for evaluation of worsening SOB, edema, and weight gain. He had recently been placed on lower dose of torsemide when his symptoms started developing. In the office. there was concern that he was in acute heart failure and he was referred
to the ER for further workup and management. In ER, he was found to have elevated proBNP and given worsening symptoms consistent with acute heart failure, he was admitted and started on IV lasix. Cardiology consulted for evaluation. He continues to
feel somewhat poorly this morning, but remains on room air.
Progress Note - Kettle Cook
Subjective
Date of Service: May 08, 2024
Patient seen and examined with nursing at bedside. Communicated with patient Turkish interpreter and translator via the language line. Overall he reports improved shortness of breath and lower extremity edema. He also feels that the Tubigrip stockings are
helping. No chest pain or pressure. He feels like he is improving. Per nursing he is ambulating around the room without assistance. We discussed hospital course and evolving plan
Objective
Labs:
05/08/24 04:47
05/08/24 04:47
Labs
Hgb 8.9 g/dL (13.0-18.0) L 05/08/24 04:47
Hct 25.2 % (39.0-52.0) L 05/08/24 04:47
Plt Count 162 10^3/uL (130-400) 05/08/24 04:47
Sodium 136 mmol/L (135-145) 05/08/24 04:47
Potassium 4.1 mmol/L (3.5-5.1) 05/08/24 04:47
BUN 55 mg/dl (9-20) H 05/08/24 04:47
Creatinine 2.4 mg/dL (0.7-1.3) H 05/08/24 04:47
Glucose 118 mg/dl (70-99) H 05/08/24 04:47
Troponins
05/05/24
10:49
Troponin I 0.030
Vital Signs and I&O:
Vital Signs
Temp Pulse Resp BP Pulse Ox
98.5 F 67 14 116/60 95
05/08/24 07:00 05/08/24 09:02 05/08/24 07:00 05/08/24 09:02 05/08/24 07:00
Vital Signs
Temp Pulse Resp BP Pulse Ox
98.5 F 67 14 116/60 95
05/08/24 07:00 05/08/24 09:02 05/08/24 07:00 05/08/24 09:02 05/08/24 07:00
Intake & Output
05/06/24 05/07/24 05/08/24 05/09/24
06:59 06:59 06:59 06:59
Intake Total 262 / 262 120 / 120 960 / 960
Output Total 1750 / 1750 2350 / 2350 2400 / 2400 675 / 675
Balance -1488 / -1488 -2230 / -2230 -1440 / -1440 -675 / -675
Physical Exam
Physical Exam
General: No acute distress, AAOX3
Heart: Regular, positive S1/S2, 2/6 SM
Lungs: Bronchovesicular breath sounds, decreased at bases
Abd: Obese, positive BS, NT/ND, neg rebound/rigidity/guarding
Ext: Trace bilateral edema, much improved
: Suprapubic Juarez cath
--- NOTE | 2024-05-08 10:49 | W.PN.NEPH.PH ---
Today's Communication / Plan
-
po torsemide
Assessment/Plan
-
Assessment:
MARIE on CKD 3B (bl Cr 1.4-1.7)
hyponatremia
CHF exacerbation
Anemia
pAFib
GERD
Plan:
convert to po torsemide
follow BMP
he has previously stated that he would refuse dialysis if were needed
-
-
Date of Service: May 08, 2024
CC / HPI / ROS
-
Chief Complaint:
MARIE, hyponatremia
History of Present Illness:
Na 136
K controlled
MARIE/Cr down to 2.4
Hgb stable
diuresing well with lasix gtt for decompensated HF
Review of Systems:
no CP
edema improving
Labs
-
Labs:
WBC 6.2 10^3/uL (4.8-10.8) 05/08/24 04:47
RBC 2.64 10^6/uL (4.70-6.10) L 05/08/24 04:47
Hgb 8.9 g/dL (13.0-18.0) L 05/08/24 04:47
Hct 25.2 % (39.0-52.0) L 05/08/24 04:47
Plt Count 162 10^3/uL (130-400) 05/08/24 04:47
Sodium 136 mmol/L (135-145) 05/08/24 04:47
Potassium 4.1 mmol/L (3.5-5.1) 05/08/24 04:47
Chloride 95 mmol/L (98-107) L 05/08/24 04:47
Carbon Dioxide 29 mmol/L (22-30) 05/08/24 04:47
BUN 55 mg/dl (9-20) H 05/08/24 04:47
Creatinine 2.4 mg/dL (0.7-1.3) H 05/08/24 04:47
eGFR 25.80 05/08/24 04:47
Glucose 118 mg/dl (70-99) H 05/08/24 04:47
Calcium 9.4 mg/dl (8.4-10.2) 05/08/24 04:47
Phosphorus 4.4 mg/dl (2.5-4.5) 05/08/24 04:47
Wyi-G-Ftdaxsvpyie Pept 1700 pg/ml 05/07/24 05:03
Albumin 3.4 g/dl (3.5-5.0) L 05/01/24 06:45
Physical Exam
-
Vital Signs:
Vital Signs
Temp Pulse Resp BP Pulse Ox
98.5 F 67 14 116/60 95
05/08/24 07:00 05/08/24 09:02 05/08/24 07:00 05/08/24 09:02 05/08/24 07:00
Cardiovascular:: Regular rate and rhythm
Respiratory:: Bilateral: Coarse
Lung Excursion:: Normal
Abdomen:: Nontender and Soft
Bowel Sounds:: Normal
Extremity Edema:: +2: Bilateral:
--- NOTE | 2024-05-08 12:49 | W.PN.HOSP.TC ---
Today's Communication/Plan
-
Monitor vital signs
see plan
Now being transition to p.o. torsemide, monitor response
PT/OT
Monitor renal function
Discussed with daughter over the phone
Assessment / Plan
Assessment / Plan
Physical Exam
General: No acute distress. Appears comfortable at this time. Obese
HEENT: NormoCephalic, Moist mucous membranes and Atraumatic
Respiratory: Clear to auscultation
Cardiac: S1/S2, Regular Rhythm; No Murmur or Rub
GI: Soft, Non Tender, Normal Bowel Sounds and Distended
Genito-urinary: Suprapubic Tube
Musculoskeletal: Bilateral lower extremities edema +1
Skin: No Rash
Neuro: AO x 3 and Nonfocal/grossly intact
83M afib CHF CKD HTN Chronic Venous insuff DVT ileus CAD HTN Prostate Kidney Ca here for acute on chronic HFpEF
#hyponatremia/hyperkalemia/i likely hypervolemic
# Chronic kidney disease stage IIIb
-fluid restriction
-diuretics
-samsca prn as per Nephro
-Na since improved
#Acute on Chronic HFpEF
#diastolic HF exacerbation
Suspected cardiorenal syndrome
Kidney function continued to worsen despite hold on Lasix
Was on Lasix drip at 1 point, now on p.o. torsemide. Monitor response
-strict I &O
-daily weight
-fluid restriction
-04/30 chest x ray with No acute cardiopulmonary process. Repeat CXR 05/04 notes no significant change from previous, bibasilar atelectasis possible trace pleural effusion
-[id number]
-ECHO appreciated EF 55% no significant valve abn's
-Cardiology consult appreciated
#Continues to endorse subjective feelings SOB though stable respiratory status room air suspect due to heart failure and physical deconditioning
#small pleural effusion noted on ECHO repeat CXR 05/04 noted trace pleural effusion as above
#Dizziness likely symptomatic orthostatic hypotension
started on compression stockings for lower ext swelling edema
abd binder ordered to be taken off at bedtime and re-applied in morning
monitor orthostatic vitals
#Iron deficiency
# Anemia of chronic disease
-Receives Procrit as outpatient last dose 2 wks ago typically receives for Hgb<10 (patient received dose here 05/02/24)
-No active bleeding
-Monitor H&H, transfusion if Hgb <8 given cardiac history
-IV iron supplementation x3, converted to oral supplementation
# Essential hypertension
# History of coronary artery disease/cardiac stents
#Angina
-Blood pressure stable
-Norvasc held to allow room for more aggressive diuresis
-Ranexa on hold d/t worsening kidney function, imdur started 05/05 switched to isosorbide dinitrate 20 mg BID d/t patient/family concerns not tolerating Imdur
# Hyperlipidemia
-Statin continued
# Paroxysmal A-fib
-EKG with sinus rhythm with first-degree AV block, incomplete left bundle branch block
-Eliquis continued
-Metoprolol continued
# GERD
-PPI continued
#Nausea
zofran prn
# BPH
-Doxazosin continued
#hxt of kidney ca
-monitored by [facility] oncology.
# DVT prophylaxis
-Eliquis
PT/OT
# CODE STATUS
-DNR
Discussed with patient and daughter
Anticipated Discharge: 24 - 48 hours
Subjective/Interval History
-
Date of Service: May 08, 2024
Denies pain
Objective Data
-
Labs:
Laboratory Results
05/08/24
04:47
WBC 6.2
Hgb 8.9 L
Hct 25.2 L
Plt Count 162
Sodium 136
Potassium 4.1
Chloride 95 L
Carbon Dioxide 29
BUN 55 H
Creatinine 2.4 H
Glucose 118 H
Calcium 9.4
Vital Signs:
Vital Signs
Temp Pulse Resp BP Pulse Ox
98.2 F 67 16 116/60 99
05/08/24 11:00 05/08/24 09:02 05/08/24 11:00 05/08/24 09:02 05/08/24 11:00
I&O
05/07/24 05/08/24 05/09/24
06:59 06:59 06:59
Intake Total 120 / 120 960 / 960
Output Total 2350 / 2350 2400 / 2400 675 / 675
Balance -2230 / -2230 -1440 / -1440 -675 / -675
--- NOTE | 2024-05-08 15:22 | CM ---
Chart reviewed. Patient is independent of ADLS, lives with his in a 2 STH, 3 steps landing an additional 2 steps, then 8 steps. Patient ambulates with a RW. Patient has a private BUSINESS OFFICE MANAGER from [facility]. PT recommending VN. I had a
long conversation with the daughter and she agrees. Referral sent to [facility]. Plan is for the patient to return home with [facility]. CM to follow
[2024-05-08] MEDS: DEMADEX 40 MG PO (15:46)
--- NOTE | 2024-05-08 17:27 | PTCARENOTE ---
Pt sitting OOB in chair all day today, carol well, offers no complaints. Ambulating to and from bathroom with supervision, assist of 1.
[2024-05-08] MEDS: LIPITOR 10 MG PO (17:46)
[2024-05-08] MEDS: CARDURA 1 MG PO (17:46)
[2024-05-08] MEDS: ATROVENT NEBULES 0.5 MG INH (19:10)
[2024-05-08] MEDS: MELATONIN 5 MG PO (21:36)
[2024-05-09] VITALS (11 sets, daily range): BP systolic 95–144; BP diastolic 39–70; PULSE 59–66; BMI 31.4
--- NOTE | 2024-05-09 01:18 | PTCARENOTE ---
Pt oob most of evening shift in recliner chair sinus on telemetry with one quick burst of St at 0115-self limiting
Ambulated with staff to bathroom ,gait steady with walker. call rao within reach.
[2024-05-09 08:50] LABS: Hematocrit 25.8 % (39.0-52.0); Hemoglobin 9.2 g/dL (13.0-18.0); Mean Corp Hgb Conc. 35.7 g/dL (33.0-37.0); Mean Corpuscular Hgb 33.3 pg (27.0-31.0); Mean Corpuscular Volume 93.5 fL (80.0-94.0); Mean Platelet Volume 8.7 fL (7.4-10.4); Platelet Count 174 10^3/uL (130-400); Red Blood Cell Count 2.76 10^6/uL (4.70-6.10); Red Cell Dist. Width 14.7 % (11.5-14.5); White Blood Cell Count 5.9 10^3/uL (4.8-10.8)
[2024-05-09 08:52] LABS: Blood Urea Nitrogen 51 mg/dl (9-20); Calcium 9.5 mg/dl (8.4-10.2); Carbon Dioxide 30 mmol/L (22-30); Chloride 95 mmol/L (98-107); Estimated Creatinine Clearance 22 ml/min; Glucose 121 mg/dl (70-99); Sodium 136 mmol/L (135-145); eGFR 27.15
--- NOTE | 2024-05-09 09:01 | W.PN.NEPH.PH ---
Today's Communication / Plan
-
Follow BMP
Assessment/Plan
-
Assessment:
MARIE on CKD 3B (bl Cr 1.4-1.7)
hyponatremia
CHF exacerbation
Anemia
pAFib
GERD
Plan:
Continue po torsemide
follow BMP
DC planning
he has previously stated that he would refuse dialysis if were needed
-
-
Date of Service: May 09, 2024
CC / HPI / ROS
-
Chief Complaint:
MARIE, hyponatremia
History of Present Illness:
Na 136 and stable
K controlled
MARIE/Cr down to 2.3
Hgb stable
diuresing well with torsemide for decompensated HF
Review of Systems:
no CP
edema improving
Labs
-
Labs:
WBC 5.9 10^3/uL (4.8-10.8) 05/09/24 08:12
RBC 2.76 10^6/uL (4.70-6.10) L 05/09/24 08:12
Hgb 9.2 g/dL (13.0-18.0) L 05/09/24 08:12
Hct 25.8 % (39.0-52.0) L 05/09/24 08:12
Plt Count 174 10^3/uL (130-400) 05/09/24 08:12
Sodium 136 mmol/L (135-145) 05/09/24 08:12
Potassium 4.0 mmol/L (3.5-5.1) 05/09/24 08:12
Chloride 95 mmol/L (98-107) L 05/09/24 08:12
Carbon Dioxide 30 mmol/L (22-30) 05/09/24 08:12
BUN 51 mg/dl (9-20) H 05/09/24 08:12
Creatinine 2.3 mg/dL (0.7-1.3) H 05/09/24 08:12
eGFR 27.15 05/09/24 08:12
Glucose 121 mg/dl (70-99) H 05/09/24 08:12
Calcium 9.5 mg/dl (8.4-10.2) 05/09/24 08:12
Phosphorus 4.4 mg/dl (2.5-4.5) 05/08/24 04:47
Nvs-Z-Bwiklqlkzzv Pept 1700 pg/ml 05/07/24 05:03
Albumin 3.4 g/dl (3.5-5.0) L 05/01/24 06:45
Physical Exam
-
Vital Signs:
Vital Signs
Temp Pulse Resp BP Pulse Ox
97.8 F 75 18 133/70 97
05/09/24 07:59 05/09/24 08:03 05/09/24 07:59 05/09/24 08:03 05/09/24 07:59
Cardiovascular:: Regular rate and rhythm
Respiratory:: Bilateral: Coarse
Lung Excursion:: Normal
Abdomen:: Nontender and Soft
Bowel Sounds:: Normal
Extremity Edema:: +1: Bilateral:
[2024-05-09] MEDS: DEMADEX 40 MG PO ×2 (09:39→17:38)
[2024-05-09] MEDS: ELIQUIS 2.5 MG PO ×2 (09:39→20:37)
--- NOTE | 2024-05-09 09:39 | W.PN.CARDCBS ---
Today's Communication / Plan
-
Has undergone marked diuresis and now on oral diuretics (torsemide 40 mg twice daily) with fluid balance -1.5 L but overall stable weight
As an outpatient had been on torsemide 20 mg daily. I suspect he will likely need higher dose as an outpatient, possibly torsemide 40 mg daily
While intravascular volume status is difficult to assess, I think he is probably close to euvolemic state. Will defer diuretic dosing to renal but I suspect we can likely reduce intensity and possibly transition to torsemide 40 mg daily over the
next 24 hours
Impression / Plan
-
PCP: Dr. Wolfe
User Experience Lead: Dr. BE Diaz
Impression:
Presented with SOB, weight gain
Acute on chronic HFpEF
Hyponatremia
CAD
BMS to LCx 2011
Chronically occluded mid RCA by cath 01/14/2019
Paroxysmal atrial fibrillation
Chronic Eliquis anticoagulation
HTN
HLD
CKD 3b
Chronic anemia
GERD
h/o prostate cancer s/p XRT
Chronic suprapubic catheter
DNR code status
Echo 02/07/2023: EF 65%, mod cLVH, grade I DD, mild MR, trace TR
Echo 05/01/2024: EF 55%, mild cLVH, mild with peak/mean gradients 16/8 mmHg, mild TR, estimated PAP 30-35 mmHg
Plan:
Acute on chronic heart failure with preserved ejection fraction with cardiorenal syndrome
-Initial proBNP 3440 04/30/2024 has improved to 1700 05/07/2024
-22 pound weight loss this admission initially with IV Lasix drip which was then transitioned to Lasix 80 mg IV TID but due to dizziness/hypotension IV lasix held and transitioned to oral torsemide at 40 mg BID (was on torsemide 20 mg daily as an
outpatient)
Overall heart failure is markedly improved.
Renal function is improving
Has undergone marked diuresis and now on oral diuretics (torsemide 40 mg twice daily) with fluid balance -1.5 L but overall stable weight
As an outpatient had been on torsemide 20 mg daily. I suspect he will likely need higher dose as an outpatient, possibly torsemide 40 mg daily
While intravascular volume status is difficult to assess, I think he is probably close to euvolemic state. Will defer diuretic dosing to renal but I suspect we can likely reduce intensity and possibly transition to torsemide 40 mg daily over the
next 24 hours
-Reduce Cardura to 1 mg p.o. nightly for low blood pressure trend and blood pressure overall has improved. Continue current dosing of Cardura
-Goal-directed medical therapy at this point limited by renal function: Ranexa stopped this admission given renal contraindication. Rosuvastatin changed to atorvastatin secondary to renal insufficiency.
Acute on chronic renal insufficiency with history of prostate cancer status post radiation and a chronic suprapubic catheter
-Appreciate nephrology input
-Patient follows with Dr. Jimenez as an outpatient
-Creatinine continues to improve with creatinine now down to 2.3
-Monitor renal function electrolytes closely
Hyponatremia
-Sodium is improved after Samsca and IV diuresis.
Normocytic anemia
-Status post IV iron
-Hemoglobin stable, now 9.2 g/dL
History of coronary artery disease with prior bare-metal stent to circumflex artery in 2012 and a TCO of the mid RCA in 2019
-No chest pain suggestive of angina
-Continue beta-allison, statin
History of paroxysmal atrial fibrillation currently in sinus rhythm
-Continue metoprolol and renally dosed Eliquis
Total time 35 min
HPI: Aden is an 83 year old male with PMH of CAD w/ prior LCx stenting, chronic HFpEF, paroxysmal atrial fibrillation, HTN, HLD, CKD, GERD, and prostate cancer who presented to [facility] for evaluation after being seen in the cardiology office 04/30/2024.
He was seen for evaluation of worsening SOB, edema, and weight gain. He had recently been placed on lower dose of torsemide when his symptoms started developing. In the office. there was concern that he was in acute heart failure and he was referred
to the ER for further workup and management. In ER, he was found to have elevated proBNP and given worsening symptoms consistent with acute heart failure, he was admitted and started on IV lasix. Cardiology consulted for evaluation. He continues to
feel somewhat poorly this morning, but remains on room air.
Progress Note - User Experience Lead
Subjective
Date of Service: May 09, 2024
Remote dormitory counselor used for today's evaluation
Denies chest pain and feels overall stable shortness of breath. He offers no other complaints
Objective
Labs:
05/09/24 08:12
05/09/24 08:12
Labs
Hgb 9.2 g/dL (13.0-18.0) L 05/09/24 08:12
Hct 25.8 % (39.0-52.0) L 05/09/24 08:12
Plt Count 174 10^3/uL (130-400) 05/09/24 08:12
Sodium 136 mmol/L (135-145) 05/09/24 08:12
Potassium 4.0 mmol/L (3.5-5.1) 05/09/24 08:12
BUN 51 mg/dl (9-20) H 05/09/24 08:12
Creatinine 2.3 mg/dL (0.7-1.3) H 05/09/24 08:12
Glucose 121 mg/dl (70-99) H 05/09/24 08:12
Vital Signs and I&O:
Vital Signs
Temp Pulse Resp BP Pulse Ox
97.8 F 75 18 133/70 97
05/09/24 07:59 05/09/24 08:03 05/09/24 07:59 05/09/24 08:03 05/09/24 07:59
Vital Signs
Temp Pulse Resp BP Pulse Ox
97.8 F 75 18 133/70 97
05/09/24 07:59 05/09/24 08:03 05/09/24 07:59 05/09/24 08:03 05/09/24 07:59
Intake & Output
05/07/24 05/08/24 05/09/24 05/10/24
06:59 06:59 06:59 06:59
Intake Total 120 / 120 960 / 960 100 / 100
Output Total 2350 / 2350 2400 / 2400 2275 / 2275
Balance -2230 / -2230 -1440 / -1440 -2175 / -2175
Physical Exam
Physical Exam
General: No acute distress, AAOX3
Heart: Regular, positive S1/S2, 2/6 SM
Lungs: Bronchovesicular breath sounds, decreased at bases (poor inspiratory effort)
Abd: Obese, positive BS, NT/ND, neg rebound/rigidity/guarding
Ext: Bilateral Tubigrip's in place
: Suprapubic Juarez cath
[2024-05-09] MEDS: MIRALAX 17 GRAMS PO (09:40)
[2024-05-09] MEDS: ISORDIL 10 MG PO ×2 (09:40→20:37)
[2024-05-09] MEDS: NON-FORMULARY ITEM 1 UNIT PO (09:40)
[2024-05-09] MEDS: FEOSOL 325 MG PO (09:40)
[2024-05-09] MEDS: REFRESH EYE DROPS (PF) 1 DROPS OPHTH ×2 (09:41→20:37)
[2024-05-09] MEDS: TOPROL XL 50 MG PO ×2 (09:41→20:37)
[2024-05-09] MEDS: FLUSH (NSS) 2 FLUSH IV (09:41)
[2024-05-09] MEDS: SENOKOT-S 1 TABLET PO ×2 (09:41→20:37)
--- NOTE | 2024-05-09 11:58 | PTCARENOTE ---
Received patient this morning resting in bed. Utilized outboard technician to communicate with him. Knee high compression stockings applied. He denies any pain, assisted oob and weighed and abdominal binder applied, oob in the chair now.
--- NOTE | 2024-05-09 12:06 | W.PN.HOSP.TC ---
Today's Communication/Plan
-
Monitor vital signs
see plan
Continue to monitor response of torsemide, hopeful DC tomorrow
Monitor renal function closely
Assessment / Plan
Assessment / Plan
Physical Exam
General: No acute distress. Appears comfortable at this time. Obese
HEENT: NormoCephalic, Moist mucous membranes and Atraumatic
Respiratory: Clear to auscultation
Cardiac: S1/S2, Regular Rhythm; No Murmur or Rub
GI: Soft, Non Tender, Normal Bowel Sounds and Distended
Genito-urinary: Suprapubic Tube
Musculoskeletal: Bilateral lower extremities edema +1
Skin: No Rash
Neuro: AO x 3 and Nonfocal/grossly intact
83M afib CHF CKD HTN Chronic Venous insuff DVT ileus CAD HTN Prostate Kidney Ca here for acute on chronic HFpEF
#hyponatremia/hyperkalemia/i likely hypervolemic
# Chronic kidney disease stage IIIb
-fluid restriction
-diuretics
-samsca prn as per Nephro
-Na since improved
#Acute on Chronic HFpEF
#diastolic HF exacerbation
Suspected cardiorenal syndrome
Kidney function continued to worsen despite hold on Lasix
Was on Lasix drip at one point, now on p.o. torsemide. Monitor response. hopeful dc tomorrow if appropriate response to PO torsemide
-strict I &O
-daily weight
-fluid restriction
-04/30 chest x ray with No acute cardiopulmonary process. Repeat CXR 05/04 notes no significant change from previous, bibasilar atelectasis possible trace pleural effusion
-[id number]
-ECHO appreciated EF 55% no significant valve abn's
-Cardiology consult appreciated
#Continues to endorse subjective feelings SOB though stable respiratory status room air suspect due to heart failure and physical deconditioning
#small pleural effusion noted on ECHO repeat CXR 05/04 noted trace pleural effusion as above
#Dizziness likely symptomatic orthostatic hypotension
started on compression stockings for lower ext swelling edema
abd binder ordered to be taken off at bedtime and re-applied in morning
monitor orthostatic vitals
#Iron deficiency
# Anemia of chronic disease
-Receives Procrit as outpatient last dose 2 wks ago typically receives for Hgb<10 (patient received dose here 05/02/24)
-No active bleeding
-Monitor H&H, transfusion if Hgb <8 given cardiac history
-IV iron supplementation x3, converted to oral supplementation
# Essential hypertension
# History of coronary artery disease/cardiac stents
#Angina
-Blood pressure stable
-Norvasc held to allow room for more aggressive diuresis
-Ranexa on hold d/t worsening kidney function, imdur started 05/05 switched to isosorbide dinitrate 20 mg BID d/t patient/family concerns not tolerating Imdur
# Hyperlipidemia
-Statin continued
# Paroxysmal A-fib
-EKG with sinus rhythm with first-degree AV block, incomplete left bundle branch block
-Eliquis continued
-Metoprolol continued
# GERD
-PPI continued
#Nausea
zofran prn
# BPH
-Doxazosin continued
#hxt of kidney ca
-monitored by [facility].
# DVT prophylaxis
-Eliquis
PT/OT
# CODE STATUS
-DNR
Discussed with patient through sales engagement executive
Anticipated Discharge: Within 24 hours
Subjective/Interval History
-
Date of Service: May 09, 2024
denies pain
Objective Data
-
Labs:
Laboratory Results
05/09/24
08:12
WBC 5.9
Hgb 9.2 L
Hct 25.8 L
Plt Count 174
Sodium 136
Potassium 4.0
Chloride 95 L
Carbon Dioxide 30
BUN 51 H
Creatinine 2.3 H
Glucose 121 H
Calcium 9.5
Vital Signs:
Vital Signs
Temp Pulse Resp BP Pulse Ox
97.8 F 75 18 133/70 97
05/09/24 07:59 05/09/24 08:03 05/09/24 07:59 05/09/24 08:03 05/09/24 07:59
I&O
05/08/24 05/09/24 05/10/24
06:59 06:59 06:59
Intake Total 960 / 960 100 / 100
Output Total 2400 / 2400 2275 / 2275
Balance -1440 / -1440 -2175 / -2175
[2024-05-09] MEDS: CARDURA 1 MG PO (17:38)
[2024-05-09] MEDS: LIPITOR 10 MG PO (17:38)
[2024-05-09] MEDS: ATROVENT NEBULES 0.5 MG INH (21:20)
[2024-05-09] MEDS: MELATONIN 5 MG PO (21:35)
--- NOTE | 2024-05-10 00:12 | PTCARENOTE ---
Pt rec'd at change of shift in recliner with family at bedside. Assisted back to bed after scheduled resp treatment. Pt's gait slow but steady with walker. Once back to bed Tubigrip stockings removed. Suprapubic tube cleansed with nss (small amt of
brown drainage noted at site). New 4x4 split drain drsg placed. sinus on telemetry with pac's, and first degree block.
[2024-05-10 04:38] VITALS: BP 126/65
--- NOTE | 2024-05-10 05:10 | PTCARENOTE ---
Pt awoken for am labs and VS, no complaints offered
[2024-05-10 05:13] LABS: Hematocrit 25.4 % (39.0-52.0); Mean Corp Hgb Conc. 35.4 g/dL (33.0-37.0); Mean Corpuscular Hgb 34.1 pg (27.0-31.0); Mean Corpuscular Volume 96.2 fL (80.0-94.0); Mean Platelet Volume 8.8 fL (7.4-10.4); Platelet Count 153 10^3/uL (130-400); Red Blood Cell Count 2.64 10^6/uL (4.70-6.10); Red Cell Dist. Width 14.9 % (11.5-14.5); White Blood Cell Count 5.4 10^3/uL (4.8-10.8)
[2024-05-10 05:37] LABS: Blood Urea Nitrogen 51 mg/dl (9-20); Calcium 9.3 mg/dl (8.4-10.2); Carbon Dioxide 30 mmol/L (22-30); Chloride 96 mmol/L (98-107); Estimated Creatinine Clearance 25 ml/min; Glucose 122 mg/dl (70-99); Potassium 3.9 mmol/L (3.5-5.1); Sodium 137 mmol/L (135-145)
[2024-05-10 07:03] VITALS: BP 118/55
--- NOTE | 2024-05-10 08:32 | W.PN.CARDCBS ---
Today's Communication / Plan
-
Has undergone marked diuresis and now on oral diuretics (torsemide 40 mg twice daily) with fluid balance -1.5 L prior 24 hrs and - 800 cc current 24 hrs, but overall stable weight
Stable for DC from cardiac standpoint and would DC on torsemide 40 mg daily (was on 20 mgh daily prior to adm).
Will have office arrange f/u at our office (Dr Diaz)
Case Management consulted for VN services
Not adding anything new from a cardiology standpoint.
Will sign off
Impression / Plan
-
PCP: Dr. Wolfe
Hydroelectric Plant Operator: Dr. BE Diaz
Impression:
Presented with SOB, weight gain
Acute on chronic HFpEF
Hyponatremia
CAD
BMS to LCx 2011
Chronically occluded mid RCA by cath 01/14/2019
Paroxysmal atrial fibrillation
Chronic Eliquis anticoagulation
HTN
HLD
CKD 3b
Chronic anemia
GERD
h/o prostate cancer s/p XRT
Chronic suprapubic catheter
DNR code status
Echo 02/07/2023: EF 65%, mod cLVH, grade I DD, mild MR, trace TR
Echo 05/01/2024: EF 55%, mild cLVH, mild with peak/mean gradients 16/8 mmHg, mild TR, estimated PAP 30-35 mmHg
Plan:
Acute on chronic heart failure with preserved ejection fraction with cardiorenal syndrome
-Initial proBNP 3440 04/30/2024 has improved to 1700 05/07/2024
-22 pound weight loss this admission initially with IV Lasix drip which was then transitioned to Lasix 80 mg IV TID but due to dizziness/hypotension IV lasix held and transitioned to oral torsemide at 40 mg BID (was on torsemide 20 mg daily as an
outpatient)
Overall heart failure is markedly improved.
Renal function is improving (creat down to 2 on 05/10/24)
Has undergone marked diuresis and now on oral diuretics (torsemide 40 mg twice daily) with fluid balance -1.5 L prior 24 hrs and - 800 cc current 24 hrs, but overall stable weight
Stable for DC from cardiac standpoint and would DC on torsemide 40 mg daily (was on 20 mgh daily prior to adm).
While intravascular volume status is difficult to assess, I think he is probably euvolemic.
-Reduced Cardura to 1 mg p.o. nightly for low blood pressure trend and blood pressure overall has improved. Continue current dosing of Cardura
-Goal-directed medical therapy at this point limited by renal function: Ranexa stopped this admission given renal contraindication. Rosuvastatin changed to atorvastatin secondary to renal insufficiency.
Acute on chronic renal insufficiency with history of prostate cancer status post radiation and a chronic suprapubic catheter
-Appreciate nephrology input
-Patient follows with Dr. Jimenez as an outpatient
-Creatinine continues to improve with creatinine now down to 2
-Monitor renal function electrolytes closely
Hyponatremia
-Sodium is improved after Samsca and IV diuresis.
Normocytic anemia
-Status post IV iron
-Hemoglobin stable, now 9.2 g/dL
History of coronary artery disease with prior bare-metal stent to circumflex artery in 2012 and a TCO of the mid RCA in 2019
-No chest pain suggestive of angina
-Continue beta-allison, statin
History of paroxysmal atrial fibrillation currently in sinus rhythm
-Continue metoprolol and renally dosed Eliquis
Total time 51 min
HPI: Aden is an 83 year old male with PMH of CAD w/ prior LCx stenting, chronic HFpEF, paroxysmal atrial fibrillation, HTN, HLD, CKD, GERD, and prostate cancer who presented to [facility] for evaluation after being seen in the cardiology office 04/30/2024.
He was seen for evaluation of worsening SOB, edema, and weight gain. He had recently been placed on lower dose of torsemide when his symptoms started developing. In the office. there was concern that he was in acute heart failure and he was referred
to the ER for further workup and management. In ER, he was found to have elevated proBNP and given worsening symptoms consistent with acute heart failure, he was admitted and started on IV lasix. Cardiology consulted for evaluation. He continues to
feel somewhat poorly this morning, but remains on room air.
Progress Note - Hydroelectric Plant Operator
Subjective
Date of Service: May 10, 2024
[place] spanish interpreter/translator service, video and audio was used today
No new complaints
He is concerned that he is overall not very strong and may need additional physical therapy.
Objective
Labs:
05/10/24 04:44
05/10/24 04:44
Labs
Hgb 9.0 g/dL (13.0-18.0) L 05/10/24 04:44
Hct 25.4 % (39.0-52.0) L 05/10/24 04:44
Plt Count 153 10^3/uL (130-400) 05/10/24 04:44
Sodium 137 mmol/L (135-145) 05/10/24 04:44
Potassium 3.9 mmol/L (3.5-5.1) 05/10/24 04:44
BUN 51 mg/dl (9-20) H 05/10/24 04:44
Creatinine 2.0 mg/dL (0.7-1.3) H 05/10/24 04:44
Glucose 122 mg/dl (70-99) H 05/10/24 04:44
Vital Signs and I&O:
Vital Signs
Temp Pulse Resp BP Pulse Ox
98.8 F 71 20 126/65 98
05/10/24 07:01 05/10/24 04:38 05/10/24 07:01 05/10/24 04:38 05/10/24 07:01
Vital Signs
Temp Pulse Resp BP Pulse Ox
98.8 F 71 20 126/65 98
05/10/24 07:01 05/10/24 04:38 05/10/24 07:01 05/10/24 04:38 05/10/24 07:01
Intake & Output
05/08/24 05/09/24 05/10/24 05/11/24
06:59 06:59 06:59 06:59
Intake Total 960 / 960 100 / 100 840 / 840
Output Total 2400 / 2400 2275 / 2275 1650 / 1650
Balance -1440 / -1440 -2175 / -2175 -810 / -810
Physical Exam
Physical Exam
General: No acute distress, AAOX3
Heart: Regular, positive S1/S2, 2/6 SM
Lungs: Bronchovesicular breath sounds, decreased at bases (poor inspiratory effort)
Abd: Obese, positive BS, NT/ND, neg rebound/rigidity/guarding
Ext: Bilateral Tubigrip's in place
--- NOTE | 2024-05-10 08:45 | W.PN.NEPH.PH ---
Today's Communication / Plan
-
Maintain oral diuretic
Assessment/Plan
-
Assessment:
MARIE on CKD 3B (bl Cr 1.4-1.7)
hyponatremia
CHF exacerbation
Anemia
pAFib
GERD
Plan:
Continue po torsemide
follow BMP
Creatinine down to 2.0 and remains grossly nonoliguric via suprapubic catheter
DC planning
he has previously stated that he would refuse dialysis if were needed
-
-
Date of Service: May 10, 2024
CC / HPI / ROS
-
Chief Complaint:
MARIE, hyponatremia
History of Present Illness:
Na 136 and stable
K controlled
MARIE/Cr down to 2
Hgb stable
diuresing well with torsemide for decompensated HF
Review of Systems:
no CP
edema improving
non oliguric via suprapubic catheter
Labs
-
Labs:
WBC 5.4 10^3/uL (4.8-10.8) 05/10/24 04:44
RBC 2.64 10^6/uL (4.70-6.10) L 05/10/24 04:44
Hgb 9.0 g/dL (13.0-18.0) L 05/10/24 04:44
Hct 25.4 % (39.0-52.0) L 05/10/24 04:44
Plt Count 153 10^3/uL (130-400) 05/10/24 04:44
Sodium 137 mmol/L (135-145) 05/10/24 04:44
Potassium 3.9 mmol/L (3.5-5.1) 05/10/24 04:44
Chloride 96 mmol/L (98-107) L 05/10/24 04:44
Carbon Dioxide 30 mmol/L (22-30) 05/10/24 04:44
BUN 51 mg/dl (9-20) H 05/10/24 04:44
Creatinine 2.0 mg/dL (0.7-1.3) H 05/10/24 04:44
eGFR 32.10 05/10/24 04:44
Glucose 122 mg/dl (70-99) H 05/10/24 04:44
Calcium 9.3 mg/dl (8.4-10.2) 05/10/24 04:44
Phosphorus 4.4 mg/dl (2.5-4.5) 05/08/24 04:47
Xyn-F-Koiwghtujbm Pept 1700 pg/ml 05/07/24 05:03
Albumin 3.4 g/dl (3.5-5.0) L 05/01/24 06:45
Physical Exam
-
Vital Signs:
Vital Signs
Temp Pulse Resp BP Pulse Ox
98.8 F 71 20 126/65 98
05/10/24 07:01 05/10/24 04:38 05/10/24 07:01 05/10/24 04:38 05/10/24 07:01
Cardiovascular:: Regular rate and rhythm
Respiratory:: Bilateral: Coarse
Lung Excursion:: Normal
Abdomen:: Nontender and Soft
Bowel Sounds:: Normal
Extremity Edema:: +1: Bilateral:
Juarez Catheter: Yes
Other Findings::
Suprapubic catheter
[2024-05-10] MEDS: SENOKOT-S 1 TABLET PO ×2 (09:13→20:04)
[2024-05-10] MEDS: TOPROL XL 50 MG PO ×2 (09:13→20:04)
[2024-05-10] MEDS: FEOSOL 325 MG PO (09:14)
[2024-05-10] MEDS: ISORDIL 10 MG PO ×2 (09:14→20:04)
[2024-05-10] MEDS: ELIQUIS 2.5 MG PO ×2 (09:14→20:04)
[2024-05-10] MEDS: DEMADEX 40 MG PO ×2 (09:14→16:00)
[2024-05-10] MEDS: NON-FORMULARY ITEM 1 UNIT PO (09:15)
[2024-05-10] MEDS: REFRESH EYE DROPS (PF) 1 DROPS OPHTH (09:15)
[2024-05-10] MEDS: MIRALAX 17 GRAMS PO (09:15)
[2024-05-10 09:27] VITALS: BMI 31.4
--- NOTE | 2024-05-10 10:00 | W.PN.HOSP.TC ---
Today's Communication/Plan
-
appropriate for D/C
no indication to repeat chest XR as previous already showed resolution of edema and patient currently is not decompensating
Lengthy discussion about diet - salt avoidance emphasized
Assessment / Plan
Assessment / Plan
83yo [place] Leone[place] speaking M with PMHx of CKD, suprapubic catheter, CAD s/p PCI, HTN, HLD, Hx of prostate CA, HFpEF came with worsening SOB on exertion and LE swelling with increased Cr. Managed for CHF exacerbation with cardiorenal syndrome, improved
on diouretics
A/P:
#Acute on chronic HFpEF exacerbation with cardiorenal syndrome on CKD stage 3B
Recent Echo done in 05/01/24 - preserved EF
Torsemide PO now, Weight maintained
Cr improved - baseline 1.7-2.0 - nephrology advised to cont Torsemide on current BID dose
Cardiology: outpatient follow up
#Hyponatremia
#hypokalemia
2/2 diuretics
follow and replete
#CHronic anemia with JUSTINO
#HLD
#Essential HTN
#Paroxysmal Afib
#Chronic suprapubic catheter with BPH, Hx of kidney and bladder Ca
cont home meds and catheter care
Outpatient follow up: PCP and established [facility]
Outpatient colonoscopy advised
DVT ppx eliquis
DNR/DNI
I have spent at least 57min reviewing chart, test results, communication with consultants and direct patient care
Anticipated Discharge: Today
Subjective/Interval History
-
Date of Service: May 10, 2024
Objective Data
-
Labs:
Laboratory Results
05/10/24
04:44
WBC 5.4
Hgb 9.0 L
Hct 25.4 L
Plt Count 153
Sodium 137
Potassium 3.9
Chloride 96 L
Carbon Dioxide 30
BUN 51 H
Creatinine 2.0 H
Glucose 122 H
Calcium 9.3
Vital Signs:
Vital Signs
Temp Pulse Resp BP Pulse Ox
98.8 F 71 20 118/55 98
05/10/24 07:01 05/10/24 09:14 05/10/24 07:01 05/10/24 09:14 05/10/24 08:30
I&O
05/09/24 05/10/24 05/11/24
06:59 06:59 06:59
Intake Total 100 / 100 840 / 840
Output Total 2275 / 2275 1650 / 1650
Balance -2175 / -2175 -810 / -810
Review of Systems
-
History Source: Patient
All other systems: Reviewed and negative
Physical Exam
-
General: No Apparent Distress
HEENT: Normocephalic, Atraumatic and Moist Mucous Membranes
Cardiac: Regular Rhythm
GI: Soft, Nontender and Nondistended
Genito-urinary: No Costovertebral Tender, Clear Urine and Supra Pubic Tube
Musculoskeletal: No Clubbing, No Cyanosis and No Edema
Neuro: Awake, Alert, Oriented and AO x 3
Psych: Calm
--- NOTE | 2024-05-10 11:36 | PTCARENOTE ---
received patient this am, [place] speaking language line in room and used to communicate. Monitor shows NSR with a first degree, VSS. suprapubic draining sediment yellow urine. bilat. legs moisturized and JELENA hose applied. patient able to ambulate
well with walker. patient voices no concerns at this time.
[2024-05-10 11:52] VITALS: BP 121/49
[2024-05-10 15:23] VITALS: BP 110/53
[2024-05-10] MEDS: LIPITOR 10 MG PO (17:28)
[2024-05-10] MEDS: CARDURA 1 MG PO (17:28)
[2024-05-10 19:15] VITALS: BP 112/62
[2024-05-10] MEDS: REFRESH EYE DROPS (PF) OPHTH (20:03)
[2024-05-10] MEDS: ATROVENT NEBULES 0.5 MG INH (20:13)
--- NOTE | 2024-05-10 20:45 | PTCARENOTE ---
received patient at the change of shift in the chair. family at the bedside. denies any pain. mild dyspnea per patient-much improved. SR 80s with a first degree AVB. bp stable. reviewed CHF book with daughter and patient. patient is very eager to
follow low sodium diet but daughter is concerned on food choices since the cooks all the meals. reviewed alternatives in CHF book.
daughter would like to talk to case management prior to discharge. she states that patient will need an ambulance ride home because they have 14 steps to get into house and patient will need assistance. daughter also asking for nutrition
consult-order placed.
[2024-05-10] MEDS: MELATONIN 5 MG PO (22:19)
[2024-05-10 22:24] VITALS: BP 109/67
[2024-05-11 04:16] VITALS: BP 138/66
[2024-05-11 05:05] LABS: Blood Urea Nitrogen 54 mg/dl (9-20); Calcium 9.4 mg/dl (8.4-10.2); Carbon Dioxide 32 mmol/L (22-30); Chloride 96 mmol/L (98-107); Estimated Creatinine Clearance 23 ml/min; Glucose 112 mg/dl (70-99); Potassium 3.9 mmol/L (3.5-5.1); Sodium 139 mmol/L (135-145); eGFR 28.63
[2024-05-11 06:51] VITALS: BP 127/67
[2024-05-11] MEDS: REFRESH EYE DROPS (PF) 1 DROPS OPHTH (08:58)
[2024-05-11] MEDS: FEOSOL 325 MG PO (09:00)
[2024-05-11] MEDS: SENOKOT-S 1 TABLET PO (09:00)
[2024-05-11] MEDS: ISORDIL 10 MG PO (09:00)
[2024-05-11] MEDS: ELIQUIS 2.5 MG PO (09:00)
[2024-05-11] MEDS: NON-FORMULARY ITEM 1 UNIT PO (09:00)
[2024-05-11] MEDS: DEMADEX 40 MG PO (09:03)
[2024-05-11] MEDS: TOPROL XL 50 MG PO (09:04)
[2024-05-11] MEDS: MIRALAX PO (09:04)
[2024-05-11] MEDS: MIRALAX 17 GRAMS PO (09:38)
--- NOTE | 2024-05-11 09:51 | W.PN.NEPH.PH ---
Today's Communication / Plan
-
No change in plan
Maintain torsemide
Assessment/Plan
-
Assessment:
MARIE on CKD 3B (bl Cr 1.4-1.7)
hyponatremia
CHF exacerbation
Anemia
pAFib
GERD
Plan:
Continue po torsemide
follow BMP
Creatinine at 2.2 and remains grossly nonoliguric via suprapubic catheter
DC planning
Weight stable
he has previously stated that he would refuse dialysis if were needed
-
-
Date of Service: May 11, 2024
CC / HPI / ROS
-
Chief Complaint:
MARIE, hyponatremia
History of Present Illness:
Na 139 and stable
K controlled
MARIE/Cr at 2.2
Hgb stable
diuresing well with torsemide for decompensated HF
Review of Systems:
no CP
non oliguric via suprapubic catheter
Weights unchanged
Labs
-
Labs:
WBC 5.4 10^3/uL (4.8-10.8) 05/10/24 04:44
RBC 2.64 10^6/uL (4.70-6.10) L 05/10/24 04:44
Hgb 9.0 g/dL (13.0-18.0) L 05/10/24 04:44
Hct 25.4 % (39.0-52.0) L 05/10/24 04:44
Plt Count 153 10^3/uL (130-400) 05/10/24 04:44
Sodium 139 mmol/L (135-145) 05/11/24 04:15
Potassium 3.9 mmol/L (3.5-5.1) 05/11/24 04:15
Chloride 96 mmol/L (98-107) L 05/11/24 04:15
Carbon Dioxide 32 mmol/L (22-30) H 05/11/24 04:15
BUN 54 mg/dl (9-20) H 05/11/24 04:15
Creatinine 2.2 mg/dL (0.7-1.3) H 05/11/24 04:15
eGFR 28.63 05/11/24 04:15
Glucose 112 mg/dl (70-99) H 05/11/24 04:15
Calcium 9.4 mg/dl (8.4-10.2) 05/11/24 04:15
Phosphorus 4.4 mg/dl (2.5-4.5) 05/08/24 04:47
Mxc-Q-Uapvtwwnwkk Pept 1700 pg/ml 05/07/24 05:03
Albumin 3.4 g/dl (3.5-5.0) L 05/01/24 06:45
Physical Exam
-
Vital Signs:
Vital Signs
Temp Pulse Resp BP Pulse Ox
98.0 F 60 18 138/66 97
05/11/24 06:50 05/11/24 04:16 05/11/24 06:50 05/11/24 04:16 05/11/24 06:50
Cardiovascular:: Regular rate and rhythm
Respiratory:: Bilateral: Coarse
Lung Excursion:: Normal
Abdomen:: Nontender and Soft
Bowel Sounds:: Normal
Extremity Edema:: +1: Bilateral:
Juarez Catheter: Yes
Other Findings::
Suprapubic catheter
--- NOTE | 2024-05-11 10:11 | W.PN.HOSP.TC ---
Today's Communication/Plan
-
dc
Assessment / Plan
Assessment / Plan
83yo Mauritanian speaking M with PMHx of CKD, suprapubic catheter, CAD s/p PCI, HTN, HLD, Hx of prostate CA, HFpEF came with worsening SOB on exertion and LE swelling with increased Cr. Managed for CHF exacerbation with cardiorenal syndrome, stable
angina, improved on diuretics, however poor exercise tolerance persisted. Cardiology could not do cath with poor renal function and patient not accepting HD risk. Recommended rehab, however patient declined. Medically optimized for d/c home. Will
follow carpet sewer as outpatient
A/P:
#Acute on chronic HFpEF exacerbation with cardiorenal syndrome on CKD stage 3B
#CAD with stable angina on exertion
Cardio cannot do cath with poor renal function - cont GDMT
Recent Echo done in 05/01/24 - preserved EF
Torsemide PO now, Weight maintained
Cr improved - baseline 1.7-2.0 - card advised to cont Torsemide on daily dose
Cardiology: outpatient follow up
#Old granulomatous disease
Pulm consult: outpatient follow up
No signs of active bacterial infection with absent fever and no WBC elevation
#Hyponatremia
#hypokalemia
2/2 diuretics
follow and replete
#Chronic anemia with JUSTINO
#HLD
#Essential HTN
#Paroxysmal Afib
#Chronic suprapubic catheter with BPH, Hx of kidney and bladder Ca
cont home meds and catheter care
Outpatient follow up: PCP and established [facility]
Outpatient colonoscopy advised
DVT ppx Eliquis
DNR/DNI
I have spent at least 57min reviewing chart, test results, communication with consultants and direct patient care
Anticipated Discharge: Today
Subjective/Interval History
-
Date of Service: May 11, 2024
Objective Data
-
Labs:
Laboratory Results
05/11/24
04:15
Sodium 139
Potassium 3.9
Chloride 96 L
Carbon Dioxide 32 H
BUN 54 H
Creatinine 2.2 H
Glucose 112 H
Calcium 9.4
Vital Signs:
Vital Signs
Temp Pulse Resp BP Pulse Ox
98.0 F 60 18 138/66 97
05/11/24 06:50 05/11/24 04:16 05/11/24 06:50 05/11/24 04:16 05/11/24 06:50
I&O
05/10/24 05/11/24 05/12/24
06:59 06:59 06:59
Intake Total 840 / 840 150 / 150
Output Total 1650 / 1650 2200 / 2200
Balance -810 / -810 -2049 / -2049
Review of Systems
-
History Source: Patient
All other systems: Reviewed and negative
Physical Exam
-
General: No Apparent Distress
HEENT: Normocephalic
Respiratory: Clear to Auscultation
Cardiac: Regular Rhythm
GI: Soft, Nontender and Nondistended
Musculoskeletal: No Clubbing, No Cyanosis and No Edema
Neuro: Awake, Alert, Oriented and AO x 3
Psych: Calm
[2024-05-11 10:45] VITALS: PULSE 70; O2SAT 98
--- NOTE | 2024-05-11 11:29 | CM ---
spoke with daughter , Sahara, on the phone. explained to her that her father is unable to do steps and refuses to do 9 steps with PT but also refuses SNF. daughter is agreeable to take him home and requested ambul because he cannot do stairs. i
explained that ambul would not be covered by insurance (pt is walking with RW) and the estimated cost is $480.00 , daughter agreeable to this cost. also discussed with pt the need to look into stair glide at home. pt lives with in a 1 story
condo on the second floor and has steps to get to the garage.
[2024-05-11 11:42] VITALS: BP 125/62
--- NOTE | 2024-05-11 12:54 | CM ---
daughter called, spoke with her again. she asked about a wheelchair, gave her information on transport chairs. also she asked about HF educ, we discussed his low sodium diet. daughter also mentioned pt is current with [facility], cm to
send referral for RN/PT/OT/RETAIL ATTENDANT.
--- NOTE | 2024-05-11 15:13 | CON.PUL ---
Consultation
Consultation Request
Date/Time Consultation Requested: 05/11/2024
Date/Time Consultation Performed: 05/11/2024
Requesting Provider: Dr. Millan
Performing Provider: Dr. Lamine Jones
Reason for Consultation: Abnormal CT chest
Medical History
-
History of Present Illness:
83-year-old male with past medical history significant for atrial fibrillation, CHF, chronic kidney disease who presented to the emergency room on 04/30/2024 at the direction of his casino banker for abnormal laboratories. Patient is a non-Korean
speaker. He was found to be hyponatremic on admission. He was admitted for acute on chronic heart failure with preserved ejection fraction.
Patient has been started on diuresis with good response. Has developed acute kidney injury. He was placed on
Lasix drip. Nephrology and cardiology following.
Now on oral diuretics. Cardiology has signed off. Recommend outpatient follow-up.
Patient continues to report shortness of breath, a CT of the chest was done on 05/11/2024 prior to discharge and found some abnormalities. We were consulted for evaluation of abnormal CT chest.
Past Medical History
Past Medical History: Other (See assessment #)
Social History
Tobacco: Other (Never smoker.)
Alcohol: None
Drug: None
Personal:
Living: With Family
Allergies / Home Medications
Allergies
Allergy/AdvReac Type Severity Reaction Status Date / Time
No Known Allergies Allergy Verified 04/30/24 15:42
Home Medications
�Medication �Instructions �Recorded �Confirmed �Last Taken �Type
Cranberry-Dmannose 1 tab PO QPM Supplement 04/30/24 04/30/24 04/29/24 History
Walls Laxative 1 dose PO DAILYPRN PRN constipation 04/30/24 04/30/24 Unknown History
amlodipine 5 mg tablet 5 mg PO DAILY Blood Pressure 04/30/24 04/30/24 04/30/24 History
apixaban 2.5 mg tablet (Eliquis) 2.5 mg PO BID Blood Clot 04/30/24 04/30/24 04/24/24 History
Prevention/Tx
cholecalciferol (vitamin D3) 25 50 mcg PO DAILY Supplement 04/30/24 04/30/24 Unknown History
mcg (1,000 unit) capsule (Vitamin
D3)
cyanocobalamin (vitamin B-12) 1,000 mcg PO DAILY Supplement 04/30/24 04/30/24 04/30/24 History
1,000 mcg tablet
diclofenac sodium 1 % topical gel 1 ea topical DAILYPRN PRN topical 04/30/24 04/30/24 Unknown History
pain
epoetin gila 40,000 unit/mL 40,000 unit SC .Q2 WEEKS RED BLOOD 04/30/24 05/02/24 04/18/24 History
injection solution (Procrit) CELLS
fluticasone propionate 50 2 spray intranasal BID 04/30/24 04/30/24 Unknown History
mcg/actuation nasal Lung/Breathing Issues
spray,suspension
ipratropium bromide 17 2 puff inhalation R QPM 04/30/24 04/30/24 04/29/24 History
mcg/actuation HFA aerosol inhaler Lung/Breathing Issues
(Atrovent HFA)
ketoconazole 2 % topical cream 1 applic topical BIDPRN PRN feet 04/30/24 04/30/24 Unknown History
melatonin 5 mg tablet 5 mg PO HS Sleep 04/30/24 04/30/24 04/29/24 History
pantoprazole 40 mg tablet,delayed 40 mg PO DAILY Gastrointestinal 04/30/24 04/30/24 04/30/24 History
release Issue
polyethylene glycol 3350 17 gram 17 g PO DAILYPRN PRN constipation 04/30/24 04/30/24 Unknown History
oral powder packet (Miralax)
propylene glycol-glycerin 0.6 1 drp ophthalmic (eye) BID Eye 04/30/24 04/30/24 04/30/24 History
%-0.6 % eye drops in a dropperette Condition
(Soothe Lubricant)
atorvastatin 10 mg tablet 10 mg PO QPM #30 tabs 05/11/24 Unknown Rx
doxazosin 1 mg tablet 1 mg PO QPM #30 tabs 05/11/24 Unknown Rx
ferrous sulfate 325 mg (65 mg 325 mg PO DAILY #30 tabs 05/11/24 Unknown Rx
iron) tablet (FeroSul)
isosorbide dinitrate 10 mg tablet 10 mg PO BID #30 tabs 05/11/24 Unknown Rx
metoprolol succinate 50 mg 50 mg PO BID #30 tabs 05/11/24 Unknown Rx
tablet,extended release 24 hr
sennosides 8.6 mg-docusate sodium 1 tab PO BID #30 tabs 05/11/24 Unknown Rx
50 mg tablet
torsemide 20 mg tablet 40 mg (2 x 20 mg) PO DAILY #30 tabs 05/11/24 Unknown Rx
Review of Systems
Vitals / Labs / Diagnostic Testing
Vital Signs
Temp Pulse Resp BP Pulse Ox
98.0 F 60 18 138/66 97
05/11/24 06:50 05/11/24 04:16 05/11/24 06:50 05/11/24 04:16 05/11/24 06:50
Lab Data
05/10/24 04:44
05/11/24 04:15
Diagnostic Testing:
Assessment
-
.
Abnormal CT chest: Findings consistent with prior granulomatous disease.
1. SMALL PERIPHERAL TREE-IN-BUD ENDOBRONCHIAL OPACITIES in the peripheral aspect of the right upper and middle lobes consistent with MILD PERIPHERAL ENDOBRONCHIAL INFECTION.
2. Solid pulmonary nodules in the right upper lobe (7.8 mm) and in the right lower lobe (8.2 mm which are probably infectious in etiology.
3. Chronic granulomatous disease infection with calcified mediastinal lymph nodes and small calcified pulmonary granulomas.
Shortness of breath is multifactorial: Anemia/deconditioning/underlying cardiac disease. No evidence for acute pulmonary pathology to explain shortness of breath.
-
Cardiorenal syndrome
Acute on chronic heart failure with preserved ejection fraction
Orthostatic hypotension-dizziness.
Conditions present prior admission:
Originally from [facility] moved here 28 years ago.
Anemia of chronic disease
GERD
BPH
History of prostate cancer
History of DVT
Prior GI bleed
History of kidney cancer-follows at [facility]
Heart failure with preserved ejection fraction
Hypertension
Hyperlipidemia
Chronic kidney disease
Paroxysmal atrial fibrillation on anticoagulation
Known history of coronary artery disease with prior stenting
DNR status
Echocardiogram 05/01/2024: Showed normal LVEF. Ejection fraction 55%. No regional wall motion abnormalities. Mild LVH. Mild aortic stenosis. Small pericardial effusion
Assessment and plan:
Consulted for abnormal CT chest.
There is evidence for prior granulomatous disease. Patient is a never smoker
Originally from [facility] moved to the 28 years ago
Daughter is not aware of any environmental or occupational exposure.
Patient denies any cough or phlegm production.
Denies fevers or chills.
Denies any significant weight loss other than with diuretics.
-
At this point I doubt any active disease.
-
--perhaps prior tuberculosis exposure/latent tuberculosis versus other type of infection given ethnicity. Less likely Burnt out Sarcoidosis.
Small pulmonary nodules of uncertain etiology-could be scarring cannot rule out malignancy-they need to be followed in the outpatient setting with a CAT scan in about 6 months
Minimal tree-in-bud opacity in the right lung: Doubt of any clinical significance at this point.
I doubt any reactivation of granulomatous disease.
He does not have any signs and symptoms suggestive of active infection, recommend outpatient pulmonary follow-up, most likely to recommend ongoing follow-up with imaging.
-
I discussed with daughter Mita over the phone. She states that she knew about abnormalities. I offered her outpatient follow-up and she will think about it. My information will be left in the chart.
-
Suspect shortness of breath is multifactorial: Deconditioning, anemia, underlying heart disease/beta-allison.
CT chest without significant emphysema or underlying parenchymal lung disease.
-
Information will be left in the chart for follow-up if patient desires to continue to follow-up.
No additional recommendations from
Sign off.
Okay to discharge from my perspective.
--- NOTE | 2024-05-11 15:44 | W.DCSUMMARY ---
Discharge Summary
Discharge Data
Date of Admission: 04/30/24
Date of Discharge: 05/11/24
-
Pending Results: No
Hospital Course
83yo Tongan speaking M with PMHx of CKD, suprapubic catheter, CAD s/p PCI, HTN, HLD, Hx of prostate CA, HFpEF came with worsening SOB on exertion and LE swelling with increased Cr. Managed for CHF exacerbation with cardiorenal syndrome, stable
angina, improved on diuretics, however poor exercise tolerance persisted. Cardiology could not do cath with poor renal function and patient not accepting HD risk. Recommended rehab, however patient declined. Medically optimized for d/c home. Will
follow resident care manager as outpatient
I have spent at least 38min discharging the patient
Patient was managed for
#Acute on chronic HFpEF exacerbation with cardiorenal syndrome on CKD stage 3B
#CAD with stable angina on exertion
#Old granulomatous disease
#Hyponatremia
#hypokalemia
#Chronic anemia with JUSTINO
#HLD
#Essential HTN
#Paroxysmal Afib
#Chronic suprapubic catheter with BPH, Hx of kidney and bladder Ca
Discharge Plan
-
Patient Disposition: Home (Routine Discharge)
Discharge Diagnosis/Procedures: CAD
Condition: Fair
Diet: Low Cholesterol, Low Sodium, No added salt and Restrict fluids to 48 oz
Activity: As tolerated
Driving Restrictions: As prior to admission
Specialty Instructions: Weigh Daily- Call MD for wt gain/loss 3 lbs overnight/5 lbs in 1 week
Activity Restrictions/Additional Instructions:
Schedule repeated CT chest in 3-4 months after discharge
Instructions: *DCA Heart Failure Instructions
Referrals:
[facility] [Other]
(FAX [phone]
RN/PT/OT/REGIONAL CRA
cm to fax referral in am )
Lamine Urrutia MD [Active] - in one month (Repeat CT chest)
Jose Diaz MD [Active] - 05/26/24 1:20 pm (You have a follow up visit with Dr. Diaz at the [place] office. Please call with questions. )
Vivian Wolfe MD [Family Provider] -
Prescriptions:
New
torsemide 20 mg Tablet
40 mg PO DAILY Qty: 30 0RF
doxazosin 1 mg Tablet
1 mg PO QPM Qty: 30 0RF
isosorbide dinitrate 10 mg Tablet
10 mg PO BID Qty: 30 0RF
ferrous sulfate [FeroSul] 325 mg (65 mg iron) Tablet
325 mg PO DAILY Qty: 30 0RF
atorvastatin 10 mg Tablet
10 mg PO QPM Qty: 30 0RF
metoprolol succinate 50 mg Tablet Extended Release 24 Hr
50 mg PO BID Qty: 30 0RF
sennosides-docusate sodium 8.6-50 mg Tablet
1 tab PO BID Qty: 30 0RF
Continued
amlodipine 5 mg tablet
5 mg PO DAILY
Procrit 40,000 unit/mL solution
40,000 unit SC .Q2 WEEKS
pantoprazole 40 mg tablet,delayed release (DR/EC)
40 mg PO DAILY
ketoconazole 2 % cream
1 applic TOPICAL BIDPRN PRN (Reason: feet)
fluticasone propionate 50 mcg/actuation spray,suspension
2 spray INTRANASAL BID
cholecalciferol (vitamin D3) [Vitamin D3] 25 mcg (1,000 unit) capsule
50 mcg PO DAILY
Atrovent HFA 17 mcg/actuation HFA aerosol inhaler
2 puff INHALATION R QPM
Eliquis 2.5 mg tablet
2.5 mg PO BID
diclofenac sodium 1 % Gel
1 ea TOPICAL DAILYPRN PRN (Reason: topical pain)
Cranberry-Dmannose
1 tab PO QPM
polyethylene glycol 3350 [Miralax] 17 gram Powder In Packet
17 g PO DAILYPRN PRN (Reason: constipation)
cyanocobalamin (vitamin B-12) 1,000 mcg Tablet
1,000 mcg PO DAILY
melatonin 5 mg Tablet
5 mg PO HS
Soothe Lubricant 0.6-0.6 % Dropperette
1 drp ophthalmic (eye) BID
Rx Instructions:
both eyes
Walls Laxative
1 dose PO DAILYPRN PRN (Reason: constipation)
Discontinued
hydralazine 10 mg tablet
20 mg PO BIDPRN PRN (Reason: sbp > 160)
torsemide 20 mg tablet
20 mg PO DAILY
ondansetron HCl 4 mg tablet
4 mg PO BIDPRN PRN (Reason: nausea/vomiting)
metoprolol succinate 25 mg tablet extended release 24 hr
25 mg PO BID
doxazosin 2 mg tablet
2 mg PO QPM
olmesartan 20 mg tablet
20 mg PO QPM
rosuvastatin 5 mg tablet
5 mg PO QPM
ranolazine 500 mg tablet extended release 12 hr
1,000 mg PO BID
sennosides [senna] 8.6 mg Tablet
17.2 mg PO HS
magnesium 200 mg Tablet
300 mg PO HS
Discharge Orders:
Discharge Patient (As Directed); Ordered 05/11/24
Ordered By: Kyler Millan
Care Plan Goals
Care Plan Goals:
Problem: Readiness for enhanced knowledge related to diagnosis and treatment plan
Goal: Understand your diagnosis and treatment plan needs, including medications if applicable.
Instructions: Know your diagnosis, underlying causes and treatment plan options, including medications if applicable. Consult with your health care team to learn about your diagnosis and treatment plan, including medications if applicable.
Discharge Date and Time
Print Language: GREEK
[2024-05-11 16:15] VITALS: BP 134/60
[2024-05-11 16:17] VITALS: BMI 31.4
--- NOTE | 2024-05-11 17:11 | PTCARENOTE ---
Pt assisted oob to the chair for breakfast and to the bathroom as needed. Gait steady with the walker. Pt states he occasionally has chest discomfort that comes and goes. Hospitalist aware. Pt prefers to sit in the chair all day and tolerates
well.
[2024-05-11] MEDS: LIPITOR 10 MG PO (17:40)
[2024-05-11] MEDS: CARDURA 1 MG PO (17:40)
--- NOTE | 2024-05-11 18:49 | PTCARENOTE ---
Pt discharged via ambulance to home with his daughter. Discharge instructions given and reviewed with pt's daughter who reviewed with pt in Somali. Pt's daughter verbalized complete understanding and all questions answered.
--- NOTE | 2024-05-12 12:12 | CM ---
[facility] does not offer VN/PT/OT for Medicare patients. Patient's daughter prefers [facility] over [facility]. [facility] willing to accept patient. DC Summary and Instructions faxed.
== END 2024-05-11 19:12 | disposition home health service (06) | DRG 291 ==
LOC: IVU 21:43
PROVIDERS: Internal Medicine; Physician Assistant; Registered Nurse; Specialist; ADMITTING PHYSICIAN Hospitalist; ATTENDING PHYSICIAN Internal Medicine; CONSULT PHYSICIAN Internal Medicine Critical Care Medicine; CONSULT PHYSICIAN Student in an Organized Health Care Education/Training Program; EMERGENCY PHYSICIAN Emergency Medicine; FAMILY PHYSICIAN Family Medicine; OTHER PHYSICIAN Internal Medicine Cardiovascular Disease
DX: I13.0 Hypertensive heart and chronic kidney disease with heart failure and stage 1 through stage 4 chronic kidney disease, or unspecified chronic kidney disease (principal); I50.33 Acute on chronic diastolic (congestive) heart failure; E87.1 Hypo-osmolality and hyponatremia; N17.9 Acute kidney failure, unspecified; I31.39 Other pericardial effusion (noninflammatory); E87.3 Alkalosis; J98.11 Atelectasis; D71 Functional disorders of polymorphonuclear neutrophils; D63.8 Anemia in other chronic diseases classified elsewhere; E66.9 Obesity, unspecified; N18.32 Chronic kidney disease, stage 3b; Z66 Do not resuscitate; I35.8 Other nonrheumatic aortic valve disorders; Z68.34 Body mass index [BMI] 34.0-34.9, adult; J84.10 Pulmonary fibrosis, unspecified; E78.5 Hyperlipidemia, unspecified; E87.5 Hyperkalemia; N40.0 Benign prostatic hyperplasia without lower urinary tract symptoms; E87.6 Hypokalemia; G47.00 Insomnia, unspecified; I25.118 Atherosclerotic heart disease of native coronary artery with other forms of angina pectoris; I44.0 Atrioventricular block, first degree; I44.7 Left bundle-branch block, unspecified; I48.0 Paroxysmal atrial fibrillation; I87.2 Venous insufficiency (chronic) (peripheral); I95.1 Orthostatic hypotension; K21.9 Gastro-esophageal reflux disease without esophagitis; K44.9 Diaphragmatic hernia without obstruction or gangrene; R91.8 Other nonspecific abnormal finding of lung field; Z79.899 Other long term (current) drug therapy; Z79.01 Long term (current) use of anticoagulants; Z93.59 Other cystostomy status; Z85.51 Personal history of malignant neoplasm of bladder; Z85.46 Personal history of malignant neoplasm of prostate; Z85.528 Personal history of other malignant neoplasm of kidney; Z86.718 Personal history of other venous thrombosis and embolism; Z87.19 Personal history of other diseases of the digestive system; Z92.3 Personal history of irradiation; Z95.5 Presence of coronary angioplasty implant and graft
CPT/HCPCS: 71046; 71250; 80048; 80053; 80061; 81003; 81015; 82248; 82607; 82746; 83540; 83550; 83735; 83880; 83930; 83935; 84100; 84300; 84443; 84484; 85014; 85018; 85025; 85027; 86850; 86900; 86901; 87811; 93005; 93306; 94640; 97116; 97163; 97167; 97530; 97535; 99285; J2916

== ENCOUNTER 2024-12-30 18:17 | Inpatient (IN) | payer MEDICARE, OTHER, SELFPAY ==
[2024-12-30] VITALS (20 sets, daily range): BP systolic 103–140; BP diastolic 69–100; BMI 35.2; BMI 32.7
--- NOTE | 2024-12-30 16:07 | ED.GENMED ---
History of Present Illness
<Makenna Ojeda SOCIAL WORK ASSISTANT - Last Filed: 01/01/25 13:57>
General
Chief Complaint: Breathing Problem
Source: patient
Exam Limitations: none
Time Seen by Provider: 12/30/24 16:05
Nursing documentation reviewed up to this point in time: agreed with
History of Present Illness
History of Present Illness:
84-year-old male with history of vertigo, A-fib on Eliquis, CHF, CAD, DVT, HTN, HLD, GI bleed/PUD, renal failure, suprapubic catheter, anemia, prostate cancer presents for shortness of breath worsening over past 3 days. Denies chest pain, n/v/d/c,
denies abdominal pain.
For past few months, daughter states, he has only been taking his Eliquis once a day instead of twice because he gets intermittent hematuria.
Past History
<Makenna Ojeda, SOCIAL WORK ASSISTANT - Last Filed: 01/01/25 13:57>
Past History
ED Past Medical History: Arrthythmia (Afib on Eliquis), CAD, Cancer (prostate), CHF, HTN and Hypercholesterolemia
ED Past Surgical History: Appendectomy, Cardiac (stents), Urological (415suprapubic catheter) and Other (Umbilical hernia repair)
Review of Systems
<Makenna Ojeda, SOCIAL WORK ASSISTANT - Last Filed: 01/01/25 13:57>
Review of Systems
Allergies reviewed?: Yes
All Other Systems: ROS reviewed and negative except as documented in HPI and ROS
Constitutional: Reports fatigue; Denies fever
Respiratory: Reports trouble breathing; Denies cough
Cardiac: Denies chest pain or diaphoresis
ABD/GI: Denies abdominal pain, nausea, vomiting or diarrhea
: Reports other (suprapubic catheter, intermittent hematuria)
Musculoskeletal: Reports edema (trace ankle)
Skin: Reports no symptoms
Neurological: Reports no symptoms
Phy Exam
<Makenna Ojeda, SOCIAL WORK ASSISTANT - Last Filed: 01/01/25 13:57>
Physical Exam
Physical Exam:
GENERAL: No acute distress. A&Ox3.
CONSTITUTIONAL: Afebrile.
EYES: clear, conjunctivae normal
ENMT: moist mucus membranes, Pharynx nl
RESPIRATORY: Regular respirations, mildly labored, lungs clear. Pulse ox 96% RA
CARDIOVASCULAR: Tachycardic, irregular rate and rhythm, no murmurs, no rubs.
GI: Soft, nontender, normal BS
MUSCULOSKELETAL: Moves with ease. Well perfused. Trace ankle edema
SKIN: Warm, dry, pink
PSYCH: Normal mood and affect. Well kept, interactive and appropriate
NEUROLOGIC: Awake, alert and oriented. No focal neurological deficits
Scores
<Makenna Ojeda, SOCIAL WORK ASSISTANT - Last Filed: 01/01/25 13:57>
Heart Failure Risk
Heart Failure Risk Score: Yes
History of Stroke or TIA: No
History of intubation for respiratory distress: No
Heart rate on ED arrival >/= 110: Yes
SaO2 <90% on arrival on room air: No
HR >/=110 during 3min walk test (or too ill to perform test): Yes
ECG has acute ischemic changes: No
Urea >/=12mmol/L (BUN 33.6mg/dL): Yes
Serum CO2>/=35mmol/L: No
Troponin I or T elevated to OR Level (0.4mg/dL): No
NT-proBNP >/=5,000ng/L (5,000pg/ml): Yes
HF Risk Score: 4
Admission Status: HIGH RISK 26.1% Consider SNF treatment or admission to hospital
Course
<Makenna Ojeda, SOCIAL WORK ASSISTANT - Last Filed: 01/01/25 13:57>
Orders/Labs/Results
Orders:
Orders
12/30/24 Dinner
Cholesterol Lowering
At Your Request: Full Participation
Cholesterol Lowering: Sodium, 2 Gram
12/30/24 16:00
EKG [Electrocardiogram (*1)] Urgent
Reason for Study: Tachycardia
EKG- Treatment ONCE
12/30/24 16:16
CR Chest Portable - 1 View Urgent
Comment:
Reason For Exam: afib w RVR, SOB
Reason Study Needs to be Portable: Patient Unstable
12/30/24 16:17
Diltiazem HCl [Cardizem] 22 mg IV NOW STA
12/30/24 16:18
Diltiazem 125 mg/125 ml Nss [Cardizem] 125 mg in 125 ml IV NOW
Initial dose in mg/hr, then titrate:: 5
Titrate to keep:: Heart rate 80-100 bpm
Titrate by mg/hr:: 5 mg/hr
Frequency of titrations (minutes):: 15
Maximum dose in mg/hr:: 15
12/30/24 16:24
Complete Blood Count/With Diff Urgent
Comprehensive Metabolic Panel Urgent
NT-proBNP Urgent
Troponin I Urgent
Comment: ADDED
12/30/24 16:33
Diltiazem HCl [Cardizem] 5 mg IV NOW STA
12/30/24 16:41
Furosemide [Lasix] 100 mg IV NOW STA
12/30/24 16:59
Furosemide [Lasix] 80 mg IV NOW STA
12/30/24 17:47
Admit/Transfer Patient As Directed
Co-Sign Provider:
Level of Care: Inpatient admission
Assign to:: IVU
Physician / Group: Hospitalist
Diagnosis: CHF, A-fib with RVR
Reason for Hospitalization: CHF, A-fib with RVR
Expected length of stay greater than two midnights?: Yes
ELOS- Estimated Length of Stay in days: 2
I certify the patient meets the requirements for IP care: Yes
PRN Pain Medication Management As Directed
May give lesser potent ordered pain med per pt: Yes
preference::
Protocol:: Medication orders for pain may be administered in a
manner that supports deferring to patient preference
when the pt is:
- Requesting an ordered lesser potent pain medication.
Least to most potent pain medications are defined
as: acetaminophen < NSAID < tramadol < opioids
(morphine, oxycodone, hydromorphone).
- Requesting a lesser dose of the same medication IF
ORDERED.
- Requesting a less intrusive route of administration
if both routes are prescribed by the provider (PO <
IV).
12/30/24 17:50
Code Status As Directed
Resuscitation Status: Do not resuscitate
Reached after discussion with pt or family/Healthcare POA: Yes
Physician note:: daughter
12/30/24 17:51
DNR Bracelet Application ONCE
12/30/24 20:44
Apixaban [Eliquis] 2.5 mg PO BID
Atorvastatin [Lipitor] 10 mg PO QPM
Diclofenac 1% Topical Gel 2 gram TOPICAL DAILYPRN PRN
Apply 2 or 4 grams as per protocol to the following joints:: Right Knee
Left Knee
Diltiazem 125 mg/125 ml Nss [Cardizem] 125 mg in 125 ml IV PER PROTOCOL
Initial dose in mg/hr, then titrate:: 5
Titrate to keep:: Heart rate 80-100 bpm
Titrate by mg/hr:: 5 mg/hr
Frequency of titrations (minutes):: 15
Maximum dose in mg/hr:: 15
Docusate W/Senna [Senokot-S] 2 tablet PO BID
ISOSORBIDE DInitrate [Isordil] 10 mg PO BID
Polyethylene Glycol Powder [Miralax] 17 grams PO DAILYPRN PRN
fluticasone propionate 2 spray NASAL BID
12/30/24 20:44
CARDIOLOGY CONSULT Routine
Consulting Provider: Sergio Steele
Was physician already notified: Yes
Reason for consult: afib
HF DIETARY CONSULT Routine
HF EDUCATOR CONSULT Routine
Comment:
Activity As Directed
Activity Level: Encourage Progressive Amb
Intake/ Output As Directed
Frequency: Per unit guidelines
Patient Education As Directed
Type: CHF folder
Comment: give on admission. Document in Interdisciplinary Education record
Sleep Apnea Assessment by RN As Directed
Comment:
Physician Instructions:
Vital Signs As Directed
Frequency: Other
Additional Instructions:: Q12 or per unit guidelines if more frequent.
Pulse Ox/cont/shift [RESP] Routine
Quantity: 1
Special Instructions: Daily pulse oximetry at rest. If greater than 92% at rest also obtain pulse oximetry
while ambulating as tolerated.
12/30/24 20:59
Artificial Tears (Pf) [Refresh Eye Drops (Pf)] 1 drops OPHTH BIDPRN PRN
12/30/24 22:00
Melatonin 5 mg PO HS
Metoprolol Xl [Toprol Xl] 25 mg PO BID
12/31/24 00:59
Troponin I Q6H
Comment: at admission & every 6 hours x 2 (3 total), ECG to be done with each level
12/31/24 05:19
Basic Metabolic Panel IN AM
Complete Blood Count/With Diff IN AM
Magnesium IN AM
TSH Reflex To Free T4 IN AM
Troponin I Q6H
Comment: at admission & every 6 hours x 2 (3 total), ECG to be done with each level
12/31/24 08:00
Cholecalciferol (Vitamin D3) [VITAMIN D3 (cholecalciferol)] 50 mcg PO DAILY
Cyanocobalamin [Vitamin B-12] 1,000 mcg PO DAILY
Ferrous Sulfate [Feosol] 325 mg PO DAILY
Furosemide [Lasix] 80 mg IV DAILY
Pantoprazole [Protonix] 40 mg PO DAILY
12/31/24 20:00
Ipratropium Nebs [Atrovent Nebules] 0.5 mg INH R QPM
01/01/25 03:42
Basic Metabolic Panel IN AM
01/02/25 06:00
Basic Metabolic Panel IN AM
Abnormal Lab Results
12/30/24
16:24
RBC 3.27 L 10^6/uL
(4.70-6.10)
Hgb 10.5 L g/dL
(13.0-18.0)
Hct 29.3 L %
(39.0-52.0)
MCH 32.1 H pg
(27.0-31.0)
Absolute Monos (auto) 0.7 H 10^3/uL
(0.1-0.6)
Lymphocytes % 17.9 L %
(20.5-51.1)
BUN 51 H mg/dl
(9-20)
Creatinine 1.8 H mg/dL
(0.7-1.3)
Glucose 125 H mg/dl
(70-99)
12/30/24 16:24
12/30/24 16:24
Vital Signs
Initial and Last Documented VS:
Initial Vital Signs
Temp Pulse Resp BP Pulse Ox
98.8 F 146 18 128/79 96
12/30/24 15:54 12/30/24 15:54 12/30/24 15:54 12/30/24 15:54 12/30/24 15:54
Last Documented Vital Signs
Temp Pulse Resp BP Pulse Ox
97.4 F 86 18 110/64 95
01/01/25 11:16 01/01/25 11:14 01/01/25 11:16 01/01/25 11:14 01/01/25 11:16
<Jermaine Beckwith, DO - Last Filed: 12/30/24 16:47>
Orders/Labs/Results
Orders:
Orders
12/30/24 Dinner
Cholesterol Lowering
At Your Request: Full Participation
Cholesterol Lowering: Sodium, 2 Gram
12/30/24 16:00
EKG [Electrocardiogram (*1)] Urgent
Reason for Study: Tachycardia
EKG- Treatment ONCE
12/30/24 16:16
CR Chest Portable - 1 View Urgent
Comment:
Reason For Exam: afib w RVR, SOB
Reason Study Needs to be Portable: Patient Unstable
12/30/24 16:17
Diltiazem HCl [Cardizem] 22 mg IV NOW STA
12/30/24 16:18
Diltiazem 125 mg/125 ml Nss [Cardizem] 125 mg in 125 ml IV NOW
Initial dose in mg/hr, then titrate:: 5
Titrate to keep:: Heart rate 80-100 bpm
Titrate by mg/hr:: 5 mg/hr
Frequency of titrations (minutes):: 15
Maximum dose in mg/hr:: 15
12/30/24 16:24
Complete Blood Count/With Diff Urgent
Comprehensive Metabolic Panel Urgent
NT-proBNP Urgent
Troponin I Urgent
Comment: ADDED
12/30/24 16:33
Diltiazem HCl [Cardizem] 5 mg IV NOW STA
12/30/24 16:41
Furosemide [Lasix] 100 mg IV NOW STA
12/30/24 16:59
Furosemide [Lasix] 80 mg IV NOW STA
12/30/24 17:47
Admit/Transfer Patient As Directed
Co-Sign Provider:
Level of Care: Inpatient admission
Assign to:: IVU
Physician / Group: Hospitalist
Diagnosis: CHF, A-fib with RVR
Reason for Hospitalization: CHF, A-fib with RVR
Expected length of stay greater than two midnights?: Yes
ELOS- Estimated Length of Stay in days: 2
I certify the patient meets the requirements for IP care: Yes
PRN Pain Medication Management As Directed
May give lesser potent ordered pain med per pt: Yes
preference::
Protocol:: Medication orders for pain may be administered in a
manner that supports deferring to patient preference
when the pt is:
- Requesting an ordered lesser potent pain medication.
Least to most potent pain medications are defined
as: acetaminophen < NSAID < tramadol < opioids
(morphine, oxycodone, hydromorphone).
- Requesting a lesser dose of the same medication IF
ORDERED.
- Requesting a less intrusive route of administration
if both routes are prescribed by the provider (PO <
IV).
12/30/24 17:50
Code Status As Directed
Resuscitation Status: Do not resuscitate
Reached after discussion with pt or family/Healthcare POA: Yes
Physician note:: daughter
12/30/24 17:51
DNR Bracelet Application ONCE
12/30/24 20:44
Apixaban [Eliquis] 2.5 mg PO BID
Atorvastatin [Lipitor] 10 mg PO QPM
Diclofenac 1% Topical Gel 2 gram TOPICAL DAILYPRN PRN
Apply 2 or 4 grams as per protocol to the following joints:: Right Knee
Left Knee
Diltiazem 125 mg/125 ml Nss [Cardizem] 125 mg in 125 ml IV PER PROTOCOL
Initial dose in mg/hr, then titrate:: 5
Titrate to keep:: Heart rate 80-100 bpm
Titrate by mg/hr:: 5 mg/hr
Frequency of titrations (minutes):: 15
Maximum dose in mg/hr:: 15
Docusate W/Senna [Senokot-S] 2 tablet PO BID
ISOSORBIDE DInitrate [Isordil] 10 mg PO BID
Polyethylene Glycol Powder [Miralax] 17 grams PO DAILYPRN PRN
fluticasone propionate 2 spray NASAL BID
12/30/24 20:44
CARDIOLOGY CONSULT Routine
Consulting Provider: Sergio Steele
Was physician already notified: Yes
Reason for consult: afib
HF DIETARY CONSULT Routine
HF EDUCATOR CONSULT Routine
Comment:
Activity As Directed
Activity Level: Encourage Progressive Amb
Intake/ Output As Directed
Frequency: Per unit guidelines
Patient Education As Directed
Type: CHF folder
Comment: give on admission. Document in Interdisciplinary Education record
Sleep Apnea Assessment by RN As Directed
Comment:
Physician Instructions:
Vital Signs As Directed
Frequency: Other
Additional Instructions:: Q12 or per unit guidelines if more frequent.
Pulse Ox/cont/shift [RESP] Routine
Quantity: 1
Special Instructions: Daily pulse oximetry at rest. If greater than 92% at rest also obtain pulse oximetry
while ambulating as tolerated.
12/30/24 20:59
Artificial Tears (Pf) [Refresh Eye Drops (Pf)] 1 drops OPHTH BIDPRN PRN
12/30/24 22:00
Melatonin 5 mg PO HS
Metoprolol Xl [Toprol Xl] 25 mg PO BID
12/31/24 00:59
Troponin I Q6H
Comment: at admission & every 6 hours x 2 (3 total), ECG to be done with each level
12/31/24 05:19
Basic Metabolic Panel IN AM
Complete Blood Count/With Diff IN AM
Magnesium IN AM
TSH Reflex To Free T4 IN AM
Troponin I Q6H
Comment: at admission & every 6 hours x 2 (3 total), ECG to be done with each level
12/31/24 08:00
Cholecalciferol (Vitamin D3) [VITAMIN D3 (cholecalciferol)] 50 mcg PO DAILY
Cyanocobalamin [Vitamin B-12] 1,000 mcg PO DAILY
Ferrous Sulfate [Feosol] 325 mg PO DAILY
Furosemide [Lasix] 80 mg IV DAILY
Pantoprazole [Protonix] 40 mg PO DAILY
12/31/24 20:00
Ipratropium Nebs [Atrovent Nebules] 0.5 mg INH R QPM
01/01/25 03:42
Basic Metabolic Panel IN AM
01/02/25 06:00
Basic Metabolic Panel IN AM
Abnormal Lab Results
12/30/24
16:24
RBC 3.27 L 10^6/uL
(4.70-6.10)
Hgb 10.5 L g/dL
(13.0-18.0)
Hct 29.3 L %
(39.0-52.0)
MCH 32.1 H pg
(27.0-31.0)
Absolute Monos (auto) 0.7 H 10^3/uL
(0.1-0.6)
Lymphocytes % 17.9 L %
(20.5-51.1)
BUN 51 H mg/dl
(9-20)
Creatinine 1.8 H mg/dL
(0.7-1.3)
Glucose 125 H mg/dl
(70-99)
12/30/24 16:24
12/30/24 16:24
Vital Signs
Initial and Last Documented VS:
Initial Vital Signs
Temp Pulse Resp BP Pulse Ox
98.8 F 146 18 128/79 96
12/30/24 15:54 12/30/24 15:54 12/30/24 15:54 12/30/24 15:54 12/30/24 15:54
Last Documented Vital Signs
Temp Pulse Resp BP Pulse Ox
97.4 F 86 18 110/64 95
01/01/25 11:16 01/01/25 11:14 01/01/25 11:16 01/01/25 11:14 01/01/25 11:16
<Makenna Ojeda, SOCIAL WORK ASSISTANT - Last Filed: 01/01/25 13:57>
MDM/Problems Addressed
Differential Diagnosis Includes:
CHF, OR, PNA
MDM/Problems Addressed:
84-year-old male with history of vertigo, A-fib on Eliquis, CHF, CAD, DVT, HTN, HLD, GI bleed/PUD, renal failure, suprapubic catheter, anemia, prostate cancer presents for shortness of breath worsening over past 3 days. Denies chest pain, n/v/d/c,
denies abdominal pain.
For past few months, daughter states, he has only been taking his Eliquis once a day instead of twice because he gets intermittent hematuria.
Afebrile, HR 130'2s-140's hemodynamically stable.
EKG: AFib w RVR
4:30 PM: Blood pressure is soft 103/76, Cardizem IV changed to 5 mg then drip
5:00 PM:
CBC with no clinically significant abnormality, consistent with his baseline chronic anemia
CMP: No clinically significant abnormality, consistent with his baseline CKD
BNP 15,500
5:20 p.m.
Cardiology TREMAINE Villalpando in and requests Lasix 80 mg IV and admit to hospitalist
PCXR: CHF, official read pending
Hospitalist notified of admission
BP 116/83 HR 115-130
<Makenna Ojeda, SOCIAL WORK ASSISTANT - Last Filed: 01/01/25 13:57>
*EKG
EKG Intrepretation Date: 12/30/24
Interpretation: abnormal
Heart Rate: 138
Rate: tachycardiac
Rhythm: a-fib
Britt: left axis deviation
QRS Pattern: normal QRS
Ischemia: non-specific ST changes
*Critical Care Note
Total Time (30-74mins, 75-104mins- exclusive of procedures): Not Applicable
ED Attending Note
<Makenna Ojeda SOCIAL WORK ASSISTANT - Last Filed: 01/01/25 13:57>
-
Portions of this chart may have been created with voice recognition software.� Occasional wrong word or��sound alike� substitutions may have occurred due to the inherent limitations of voice recognition software.
<Jermaine Beckwith DO - Last Filed: 12/30/24 16:47>
ED Attending Note
Patient seen and examined by attending physician: Yes
I performed the substantive portion of visit, reviewed & personally made and approve the management plan that is documented in note by myself or PAZ.: Yes
ED Attending Note:
I have seen and evaluated the patient with a [id number] encounter. I have spoken to the advance practicer provider and involved in the medical history, the physical exam, medical decision making.
Evaluation and management service: agree unless noted differently below.
Results interpretation: agree unless noted differently below.
Focused HPI: 84-year-old male presenting from the cardiology office for admission. Patient complaining of shortness of breath and leg swelling. Patient has a history of A-fib but acknowledges noncompliance Eliquis
Physical exam: Tachycardic and regular. Pitting edema noted to lower extremities. No acute respiratory distress
Medical Decision Making: Patient started on Cardizem drip. Patient is not a bedside synchronized cardioversion candidate given his noncompliance to Eliquis.
Cardiology at bedside at 4:47 PM
Discharge Plan
Departure
Patient Disposition: Admit
Date of Disposition: 12/30/24
Time of Disposition: 17:17
Admit to: IMU
Presentation/result/management discussed w/ accepting MD/DO: Hospitalist
Condition: Fair
Discharge Problem:
Atrial fibrillation with rapid ventricular response, Acute CHF (congestive heart failure)
Interventions
Interventions:
*Risk Screen - Suicide Last Done: 12/30/24 15:57
*General Assessment Last Done: 12/30/24 16:15
*Neglect/Abuse Screening Last Done: 12/30/24 15:54
*ED- Fall Risk Assessment Last Done: 12/30/24 16:15
*ED COVID-19 Vaccine History Last Done: 12/30/24 21:02
*Nursing Disposition Last Done: 12/30/24 20:31
ED- Cardiac Assessment Last Done: 12/30/24 16:41
ED- Pulmonary Assessment Last Done: 12/30/24 16:41
Discharge Date and Time
Discharge Date/Time: 12/30/24 20:40
[2024-12-30 16:34] LABS: % Basophils 0.3 % (0-2); % Eosinophils 2.1 % (0-6); % Immature Granulocytes 0.3 % (0-0.5); % Lymphocytes 17.9 % (20.5-51.1); % Monocytes 8.4 % (1.7-9.3); Absolute Eosinophils 0.2 10^3/uL (0-0.7); Absolute Lymphocytes 1.6 10^3/uL (1.2-3.4); Absolute Monocytes 0.7 10^3/uL (0.1-0.6); Absolute Neutrophils 6.3 10^3/uL (1.4-6.5); Hematocrit 29.3 % (39.0-52.0); Hemoglobin 10.5 g/dL (13.0-18.0); Mean Corp Hgb Conc. 35.8 g/dL (33.0-37.0); Mean Corpuscular Hgb 32.1 pg (27.0-31.0); Mean Corpuscular Volume 89.6 fL (80.0-94.0); Mean Platelet Volume 9.3 fL (7.4-10.4); Nucleated Red Blood Cells % 0 % (-); Platelet Count 192 10^3/uL (130-400); Red Blood Cell Count 3.27 10^6/uL (4.70-6.10); Red Cell Dist. Width 14.1 % (11.5-14.5); White Blood Cell Count 8.9 10^3/uL (4.8-10.8)
[2024-12-30] MEDS: CARDIZEM 5 MG IV (16:36)
--- NOTE | 2024-12-30 16:38 | W.PN.CARDCBS ---
Today's Communication / Plan
-
Diurese with Lasix 80 mg IV daily, was taking torsemide 40 mg PO daily prior to admission
DAISHA/CV in AM if fails to convert overnight
Impression / Plan
-
PCP: Dr. Wolfe
Cargo Service Agent: Dr. BE Diaz
Impression:
Presented with SOB, weight gain 12/30/24
Acute on chronic HFpEF
Paroxysmal atrial fibrillation, now with RVR
Chronic Eliquis anticoagulation
Hyponatremia
CAD
BMS to LCx 2011
Chronically occluded mid RCA by cath 01/14/2019
HTN
HLD
CKD 3b
Chronic anemia
GERD
h/o prostate cancer s/p XRT
Chronic suprapubic catheter
DNR code status
Echo 02/07/2023: EF 65%, mod cLVH, grade I DD, mild MR, trace TR
Echo 05/01/2024: EF 55%, mild cLVH, mild with peak/mean gradients 16/8 mmHg, mild TR, estimated PAP 30-35 mmHg
Plan:
- Patient presented to cardiology office today with complaints of shortness of breath, wheezing, cough, worsening lower extremity edema, weight gain as well as palpitations and tachycardia. EKG in office showed atrial fibrillation with rapid
ventricular response and was noted to be hypotensive with blood pressure of 102/56. He reportedly had shingles vaccination on 12/20, and afterwards developed noted symptoms as well as swollen face. Daughter had called the office on 12/28 due to
symptoms and was initially instructed to take patient to the ER, however they declined and he was recommended 2 extra doses of torsemide 20 mg, with last increased dose yesterday. Despite some weight loss, he had worsening shortness of breath. He
was brought to ER from [facility] office. Reportedly he has not been taking his Eliquis twice daily due to prior hematuria.
-proBNP 25053. patient to be admitted for IV diuresis. was on torsemide as OP
-follow Cr with diuresis, 1.8 on 12/30
-Patient taking torsemide 40 mg PO daily prior to admission. Will change to Lasix 80 mg IV x1 now and then daily. Initially recommended Lasix 100 mg IV daily, but patient's daughter is concerned about CKD.
-Plan on DAISHA/CV in AM and if stable then d/c to home same day.
Progress Note - Cargo Service Agent
Subjective
Date of Service: December 30, 2024
SOB, palpitations
Objective
Labs:
12/30/24 16:24
Labs
Hgb 10.5 g/dL (13.0-18.0) L 12/30/24 16:24
Hct 29.3 % (39.0-52.0) L 12/30/24 16:24
Plt Count 192 10^3/uL (130-400) 12/30/24 16:24
Vital Signs and I&O:
Vital Signs
Temp Pulse Resp BP Pulse Ox
98.4 F 129 26 103/76 97
12/30/24 16:14 12/30/24 16:36 12/30/24 16:32 12/30/24 16:36 12/30/24 16:32
Vital Signs
Temp Pulse Resp BP Pulse Ox
98.4 F 129 26 103/76 97
12/30/24 16:14 12/30/24 16:36 12/30/24 16:32 12/30/24 16:36 12/30/24 16:32
Physical Exam
Physical Exam
GEN: NAD. AAOx3
HEENT: EOMI, MMM
LUNGS: RA. Bibasilar rales
CV: Afib on tele. Irreg irreg
ABD: ND
EXT: +1 B/L LE edema
NEURO: Gross non-focal
SKIN: No rash
[2024-12-30 16:47] LABS: ALT (SGPT) 21 U/L (0-50); AST (SGOT) 20 U/L (17-59); Albumin 3.8 g/dl (3.5-5.0); Alkaline Phosphatase 55 U/L (38-126); Blood Urea Nitrogen 51 mg/dl (9-20); Carbon Dioxide 27 mmol/L (22-30); Chloride 100 mmol/L (98-107); Estimated Creatinine Clearance 28 ml/min; Glucose 125 mg/dl (70-99); Sodium 137 mmol/L (135-145); Total Protein 6.9 g/dl (6.3-8.2); eGFR 36.21
[2024-12-30] MEDS: CARDIZEM 125 IV (16:48)
[2024-12-30 16:56] LABS: NT-proBNP 15500 pg/ml
--- NOTE | 2024-12-30 17:24 | HPS.HSE ---
Addendum entered and electronically signed by Nathalia Mccray MD 12/30/24 17:57:
I saw and examined the patient.
The SUMMER ANALYST or PA's note was reviewed and I agree with the note.
Comment:
see separate note
Original Note:
Family Physician
-
Family Physician: Vivian Wolfe
Chief Complaint
-
sob
History of Present Illness
84-year-old male with history of vertigo, A-fib on Eliquis, CHF, CAD, DVT, HTN, HLD, GI bleed/PUD, renal failure, suprapubic catheter, anemia, prostate cancer presents for shortness of breath worsening over past 3 days.sob worse with exertion.
stated non productive cough for past three days. stated abdominal swelling and LE edema. denied fever, chills, chest pain. denied BATRES, dizzy or syncope.denied dysuria or hematuria. his torsemide was increased to 60mg from 40mg for past three days
with no relief in his symptoms. Daughter was concerned about his left eye redness since the Saturday. he was evaluated by cardiology, recommended hospital evaluation.
Patient was noted A-fib with RVR in ER on the CHF exacerbation. Patient was initiated on Cardizem drip, Lasix in ER. Admitting for further management
Medical History
Past Medical History
Past Medical History: Reports Other
Additional Past Medical History:
Paroxysmal A-fib., Heart failure, coronary artery disease, hypertension, hyperlipidemia, stage III CKD, anemia, GERD, fatigue, chronic venous insufficiency, arthritis of the, prostate cancer, suprapubic catheter, bladder outlet obstruction
Past Surgical History: Reports Other
Additional Past Surgical History:
Cardiac stent, hernia repair, s sinus surgery, appendectomy, angioplasty
Social History
Tobacco: Non-smoker
Alcohol: None
Drug: None
Living: With Family
Family History
Family History: Not pertinent
Allergies / Home Medications
Allergies reflects when Allergies were last updated in [facility].
Home Medications with original date entered in [facility]
Allergy/Medication List:
Allergies
Allergy/AdvReac Type Severity Reaction Status Date / Time
No Known Allergies Allergy Verified 12/30/24 16:18
Home Medications
amlodipine 5 mg tablet 2.5 mg PO DAILY Blood Pressure 04/30/24
apixaban 2.5 mg tablet (Eliquis) 2.5 mg PO BID Blood Clot Prevention/Tx 04/30/24
cholecalciferol (vitamin D3) 25 mcg (1,000 unit) capsule (Vitamin D3) 50 mcg PO DAILY Supplement 04/30/24
cranberry extract 157.5 qt-z-tuizcoc 500 mg capsule 1 cap PO QPM Supplement ##0 04/30/24
cyanocobalamin (vitamin B-12) 1,000 mcg tablet 1,000 mcg PO DAILY Supplement 04/30/24
diclofenac sodium 1 % topical gel 1 ea topical DAILYPRN PRN all joints 04/30/24
epoetin gila 40,000 unit/mL injection solution (Procrit) 40,000 unit SC Q3W RED BLOOD CELLS 04/30/24
fluticasone propionate 50 mcg/actuation nasal spray,suspension 2 spray intranasal BID Lung/Breathing Issues 04/30/24
ipratropium bromide 17 mcg/actuation HFA aerosol inhaler (Atrovent HFA) 2 puff inhalation R QPM Lung/Breathing Issues 04/30/24
ketoconazole 2 % topical cream 1 applic topical BIDPRN PRN b/l feet 04/30/24
melatonin 5 mg tablet 5 mg PO HS Sleep 04/30/24
pantoprazole 40 mg tablet,delayed release 40 mg PO DAILY Gastrointestinal Issue 04/30/24
phenolphthalein-docusate sodium 90 mg-83 mg capsule 1 cap PO DAILYPRN PRN constiaption ##0 04/30/24
polyethylene glycol 3350 17 gram oral powder packet (Miralax) 17 g PO DAILYPRN PRN constipation 04/30/24
propylene glycol-glycerin 0.6 %-0.6 % eye drops in a dropperette (Soothe Lubricant) 1 drp ophthalmic (eye) BIDPRN PRN both eyes 04/30/24
atorvastatin 10 mg tablet 10 mg PO QPM #30 tabs 05/11/24
doxazosin 1 mg tablet 1 mg PO QPM #30 tabs 05/11/24
ferrous sulfate 325 mg (65 mg iron) tablet (FeroSul) 325 mg PO DAILY #30 tabs 05/11/24
isosorbide dinitrate 10 mg tablet 10 mg PO BID #30 tabs 05/11/24
metoprolol succinate 50 mg tablet,extended release 24 hr 50 mg PO BID #30 tabs 05/11/24
sennosides 8.6 mg-docusate sodium 50 mg tablet 2 tab PO BID 12/30/24
torsemide 20 mg tablet 20 mg PO BID 12/30/24
Review of Systems
-
Constitutional: Reports No Symptoms
EENT: Reports No Symptoms
Respiratory: Reports Cough and Trouble Breathing
Cardiac: Reports No Symptoms
Abdomen/GI: Reports Other (Abdominal distention)
: Reports No Symptoms
Musculoskeletal: Reports Edema (Bilateral lower extremity edema)
Skin: Reports No Symptoms
Neurological: Reports No Symptoms
Endocrine: Reports No Symptoms
Hematologic/Lymphatic: Reports No Symptoms
Psych: Reports No Symptoms
Physical Exam
Vital Signs
Vital Signs
Temp Pulse Resp BP Pulse Ox
98.4 F 113 29 106/76 96
12/30/24 16:14 12/30/24 17:00 12/30/24 17:00 12/30/24 17:00 12/30/24 17:00
Physical Exam
General: Well Developed, Well Nourished and No Apparent Distress
HEENT: NormoCephalic, Moist mucous membranes and Atraumatic
Respiratory: Clear and Crackles
Cardiac: Irregular Rhythm and Tachycardia; No Murmur or Rub
GI: Soft, Non Tender, Non Distended and Normal Bowel Sounds; No Organomegaly
Rectal: Deferred by Provider
Musculoskeletal: No Clubbing, No Cyanosis and Other (Bilateral lower extremities edema, abdominal edema)
Skin: No Rash
Neuro: AO x 3 and Nonfocal/grossly intact
Psych: Calm
Laboratory Results
-
12/30/24 16:24
12/30/24 16:24
Laboratory Results
Total Bilirubin 1.0 mg/dl (0.2-1.3) 12/30/24 16:24
AST 20 U/L (17-59) 12/30/24 16:24
ALT 21 U/L (0-50) 12/30/24 16:24
Alkaline Phosphatase 55 U/L (38-126) 12/30/24 16:24
Data Reviewed
-
Lab Data: Labs Reviewed by me
Impression/Plan
-
# Atrial fibs with RVR
- Cardizem drip
- EKG with A-fib with RVR
-Eliquis continued
-Metoprolol can
- As per cardiology plan for DAISHA/CV in a.m.
# CHF exacerbation
- Lasix IV continued
-Admitted for continued
- Strict LUIGI, daily weight, fluid restriction
- Cardiology consulted
- BNP 15 500
- Chest x-ray pending
# Anemia of chronic disease
- Hemoglobin stable at 10.5
- No active bleed
- Continue to monitor
- Ferrous sulfate continue
# CKD stage IIIb
- Creatinine 1.8
- Continue to monitor
#HLD
-Statin continued
#Essential HTN
- Norvasc, Cardura continue with hold parameters
#Chronic suprapubic catheter with BPH, Hx of kidney and bladder Ca
cont home meds and catheter care
# GERD
- PPI continued
DVT ppx Eliquis
DNR/DNI
--- NOTE | 2024-12-30 17:25 | W.PN.UPDATE ---
Update Note
Progress Note Update
84-year-old much seen cardiology office today with shortness of breath cough and lower extremity swelling and weight gain. He also had some palpitations. ECG in cardiology office showed A-fib with RVR and was sent to the ER. Patient had shingles
vaccine on 413 and had edema of the face was instructed to go to ER however took extra doses of torsemide. He lost some weight but still had shortness of breath. Because of intermittent hematuria he has been taking Eliquis only once a day and not
twice a day.
Chest x-ray reviewed by me-cardiomegaly fluid overload
EKG reviewed by me-A-fib with rate of 138, left axis deviation, nonspecific ST-T changes
CVS: S1-S2 irregular and tachycardic
Conjunctival hemorrhage on the left
Chest: rales B/L
Abdomen: Soft, NT
Extremities: B/L edema,
MEDICAL STAFFING COORDINATOR: Non focal exam
# Acute on chronic HFpEF
Admit to IVU
IV diuretics Lasix 80 mg daily
Cardizem drip as needed to keep heart rate under control
Daily weights intake output charting
2 gram sodium diet
CHF education
Cardiology evaluation
# A-fib with RVR
Cardiology planning for DAISHA with cardioversion in the morning
Continue Eliquis
# Coronary disease with history of bare-metal stent stent to left circumflex
Chronically occluded RCA by catheter 2018
Continue atorvastatin, beta-allison, Eliquis
# Hypertension-on amlodipine, metoprolol as outpatient-hold amlodipine while on Cardizem drip.
# Hyperlipidemia/atherosclerosis-continue statin
# CKD stage III
# Chronic anemia-likely secondary to chronic disease. Gets Procrit injections as outpatient
# Chronic vertigo
# History of DVT
# GERD/hiatal hernia
# DJD/spinal stenosis
# Diverticulosis
# History of prostate cancer with radiation treatment in the past/chronic suprapubic catheter
# DNR per discussion with patient's daughter at bedside
time spent over 75 min
[2024-12-30] MEDS: LASIX 80 MG IV (17:57)
[2024-12-30] MEDS: ATROVENT NEBULES 0.5 MG INH (21:15)
[2024-12-30] MEDS: SENOKOT-S 2 TABLET PO (22:20)
[2024-12-30] MEDS: MELATONIN 5 MG PO (22:20)
[2024-12-30] MEDS: ELIQUIS 2.5 MG PO (22:20)
[2024-12-30] MEDS: LIPITOR 10 MG PO (22:20)
[2024-12-30] MEDS: TOPROL XL 25 MG PO (22:20)
[2024-12-30] MEDS: ISORDIL 10 MG PO (22:20)
--- NOTE | 2024-12-30 23:05 | PTCARENOTE ---
Pt rec'd as new admit with daughter at bedside translating for pt who is Ethiopian speaking only. Adm hx taken. Pt rec'd to unit on Cardizem gtt at 10 mg /hr. Afib on telemetry ht rates 104-145. Pt made aware of npo status after mn. Pt's daughter
Mita aware of DAISHA/CV in am if pt does not convert tonight. + Dyspnea with minimal movement. Lungs with some crackles in bases. LE with + 1 edema,most of fluid per pt and daughter is located in his abd. Suprapubic catheter with lewis bag attached.
No redness noted at site.
[2024-12-31] VITALS (12 sets, daily range): BP systolic 102–124; BP diastolic 61–91; PULSE 84; BMI 32.4
[2024-12-31 01:39] LABS: Troponin I < 0.012 ng/ml
[2024-12-31 01:51] LABS: Troponin I < 0.012 ng/ml
--- NOTE | 2024-12-31 03:23 | DOWNTIME ---
There was a [employer] Client Goodwill Ambassador Downtime on 12/31/2024 from 0200 to 01/01/2024 at 0318 . Downtime documentation of patient's care, including medication administrations, has been reconciled in the electronic record per guidelines. Refer to the
patient's paper chart under the miscellaneous tab to see printed paper medication records and downtime forms.
[2024-12-31] MEDS: CARDIZEM 125 IV ×2 (05:21→17:05)
[2024-12-31 06:14] LABS: % Basophils 0.3 % (0-2); % Eosinophils 4.4 % (0-6); % Immature Granulocytes 0.4 % (0-0.5); % Lymphocytes 22.1 % (20.5-51.1); % Monocytes 8.3 % (1.7-9.3); % Neutrophils 64.5 % (42.2-75.2); Absolute Eosinophils 0.3 10^3/uL (0-0.7); Absolute Lymphocytes 1.7 10^3/uL (1.2-3.4); Absolute Monocytes 0.6 10^3/uL (0.1-0.6); Absolute Neutrophils 4.9 10^3/uL (1.4-6.5); Hematocrit 26.9 % (39.0-52.0); Hemoglobin 9.6 g/dL (13.0-18.0); Mean Corp Hgb Conc. 35.7 g/dL (33.0-37.0); Mean Corpuscular Hgb 31.9 pg (27.0-31.0); Mean Corpuscular Volume 89.4 fL (80.0-94.0); Mean Platelet Volume 9.5 fL (7.4-10.4); Nucleated Red Blood Cells % 0 % (-); Platelet Count 196 10^3/uL (130-400); Red Blood Cell Count 3.01 10^6/uL (4.70-6.10); Red Cell Dist. Width 13.9 % (11.5-14.5); White Blood Cell Count 7.6 10^3/uL (4.8-10.8)
[2024-12-31 06:38] LABS: Troponin I < 0.012 ng/ml
[2024-12-31 06:39] LABS: Blood Urea Nitrogen 49 mg/dl (9-20); Carbon Dioxide 26 mmol/L (22-30); Chloride 101 mmol/L (98-107); Estimated Creatinine Clearance 28 ml/min; Glucose 130 mg/dl (70-99); Magnesium 2.6 mg/dl (1.6-2.3); Potassium 3.8 mmol/L (3.5-5.1); Sodium 139 mmol/L (135-145); eGFR 36.21
[2024-12-31 07:40] LABS: TSH Reflex To Free T4 3.16 uIU/ml (0.47-4.68)
[2024-12-31] MEDS: LASIX 80 MG IV (08:10)
[2024-12-31] MEDS: SENOKOT-S 2 TABLET PO ×2 (08:10→19:50)
[2024-12-31] MEDS: VITAMIN B-12 1000 MCG PO (08:10)
[2024-12-31] MEDS: PROTONIX 40 MG PO (08:10)
[2024-12-31] MEDS: ISORDIL 10 MG PO ×2 (08:10→19:50)
[2024-12-31] MEDS: FEOSOL 325 MG PO (08:10)
[2024-12-31] MEDS: ELIQUIS 2.5 MG PO ×2 (08:11→19:50)
[2024-12-31] MEDS: TOPROL XL 25 MG PO ×2 (08:11→09:53)
[2024-12-31] MEDS: VITAMIN D3 (cholecalciferol) 50 MCG PO (08:11)
--- NOTE | 2024-12-31 08:18 | W.PN.CARDCBS ---
Addendum entered and electronically signed by Sergio Steele DO 12/31/24 09:53:
I saw and examined the patient.
The Steel Engraver's note was reviewed and I agree with the note.
Comment:
Plan:
Remains in AFib on IV Cardizem for rate control.
Cont IV lasix. Daughter has been concerned about lasix dosing limiting management.
Monitor daily wts and Is and Os.
Echo pending to reeval EF
DAISHA/cv tomorrow
Discussed with nursing
Original Note:
Today's Communication / Plan
-
Remains in Afib, renewed Cardizem gtt, increased Toprol XL, rescheduled DAISHA/CV to tomorrow due to ongoing symptomatic CHF
Needs DAISHA due to Eliquis noncompliance
Check TTE today due to CHF and now that DAISHA/CV is pushed to tomorrow
Impression / Plan
-
PCP: Dr. Wolfe
Insurance Verification Specialist: Dr. BE Diaz
Impression:
Presented with SOB, weight gain 12/30/24
Acute on chronic HFpEF
Paroxysmal atrial fibrillation, now with RVR
Chronic Eliquis anticoagulation
Hyponatremia
CAD
BMS to LCx 2011
Chronically occluded mid RCA by cath 01/14/2019
HTN
HLD
CKD 3b
Chronic anemia
GERD
h/o prostate cancer s/p XRT
Chronic suprapubic catheter
DNR code status
Echo 02/07/2023: EF 65%, mod cLVH, grade I DD, mild MR, trace TR
Echo 05/01/2024: EF 55%, mild cLVH, mild with peak/mean gradients 16/8 mmHg, mild TR, estimated PAP 30-35 mmHg
Plan:
-Language Line services used by me 12/31/24. Patient says he does not feel any better compared to yesterday. Weights not accurate, will change to standing scale, ordered by il 12/31/24.
-Patient given Lasix 80 mg IV x1 in the ER and then daily. Patient was taking torsemide 40 mg daily prior to admission so Lasix 80 mg IV is an equivalent dose. Initially attempted Lasix 100 mg IV daily, but patient and daughter worried about CKD.
Await arrival of patient's daughter 12/31/24 to discuss CKD 3b and CHF and the need for Lasix IV.
-EF 55% by echo 05/01/24, check echo 12/31/24.
-Outpatient dose of Toprol XL 50 mg BID was lowered to 25 mg BID on admission, will change back to 50 mg BID 12/31/24, ordered by me
-Will not LINDA/ARB/ARNI/aldosterone antagonist due to CKD 3b and active diuresis
-Will not add SGLT-2 with chronic suprapubic catheter in place.
-Patient with known paroxysmal Afib and was in Afib with RVR 12/30/24 during cardiology office visit.
-Cardizem gtt running at 10 mg/hr 12/31/24, gtt renewed by il 12/31/24.
-Increase Toprol XL as above
-Patient was noncompliant with BID dosing of Eliquis prior to admission. Will need DAISHA guided CV, rescheduled now for 01/02/24 due to ongoing symptomatic CHF from under-diuresis.
-Cont Eliquis 2.5 mg BID (age 84, Cre 1.8)
-Plan on DAISHA/CV in AM, orders placed and scheduled with labor and delivery registered nurse transmitter engineer in charge by il 12/31/24
HPI: Patient presented to cardiology office today with complaints of shortness of breath, wheezing, cough, worsening lower extremity edema, weight gain as well as palpitations and tachycardia. EKG in office showed atrial fibrillation with rapid
ventricular response and was noted to be hypotensive with blood pressure of 102/56. He reportedly had shingles vaccination on 12/20, and afterwards developed noted symptoms as well as swollen face. Daughter had called the office on 12/28 due to
symptoms and was initially instructed to take patient to the ER, however they declined and he was recommended 2 extra doses of torsemide 20 mg, with last increased dose yesterday. Despite some weight loss, he had worsening shortness of breath. He
was brought to ER from [facility] office. Reportedly he has not been taking his Eliquis twice daily due to prior hematuria.
Progress Note - Insurance Verification Specialist
Subjective
Date of Service: December 31, 2024
He says he does not feel any better, SOB laying down, didn't sleep well
Objective
Labs:
12/31/24 05:19
12/31/24 05:19
Labs
Hgb 9.6 g/dL (13.0-18.0) L 12/31/24 05:19
Hct 26.9 % (39.0-52.0) L 12/31/24 05:19
Plt Count 196 10^3/uL (130-400) 12/31/24 05:19
Sodium 139 mmol/L (135-145) 12/31/24 05:19
Potassium 3.8 mmol/L (3.5-5.1) 12/31/24 05:19
BUN 49 mg/dl (9-20) H 12/31/24 05:19
Creatinine 1.8 mg/dL (0.7-1.3) H 12/31/24 05:19
Glucose 130 mg/dl (70-99) H 12/31/24 05:19
Troponins
12/30/24 12/30/24 12/31/24
16:24 20:44 00:59
Troponin I < 0.012 Cancelled < 0.012
12/31/24
05:19
Troponin I < 0.012
Vital Signs and I&O:
Vital Signs
Temp Pulse Resp BP Pulse Ox
97.9 F 101 20 119/81 95
12/31/24 07:00 12/31/24 08:10 12/31/24 07:00 12/31/24 08:10 12/31/24 07:00
Vital Signs
Temp Pulse Resp BP Pulse Ox
97.9 F 101 20 119/81 95
12/31/24 07:00 12/31/24 08:10 12/31/24 07:00 12/31/24 08:10 12/31/24 07:00
Intake & Output
12/29/24 12/30/24 12/31/24 01/01/25
06:59 06:59 06:59 06:59
Intake Total 240 / 240
Output Total 1725 / 1725
Balance -1485 / -1485
Physical Exam
Physical Exam
GEN: NAD. AAOx3
HEENT: EOMI, MMM
LUNGS: RA. No audible wheeze
CV: Afib on tele. Irreg irreg
ABD: ND
EXT: +1 B/L LE edema
NEURO: Gross non-focal
SKIN: No rash
--- NOTE | 2024-12-31 11:16 | W.PN.HOSP.TC ---
Today's Communication/Plan
-
Check COVID and influenza
Tylenol for headache
Continue rate control
DAISHA cardioversion tomorrow
Assessment / Plan
Assessment / Plan
84-year-old much seen cardiology office today with shortness of breath cough and lower extremity swelling and weight gain. He also had some palpitations. ECG in cardiology office showed A-fib with RVR and was sent to the ER. Patient had shingles
vaccine on 413 and had edema of the face was instructed to go to ER however took extra doses of torsemide. He lost some weight but still had shortness of breath. Because of intermittent hematuria he has been taking Eliquis only once a day and not
twice a day.
Chest x-ray reviewed by me-cardiomegaly fluid overload
EKG reviewed by me-A-fib with rate of 138, left axis deviation, nonspecific ST-T changes
Used language line lang interpreter. Patient states that he has a headache and felt slightly warm. Headache is 3 out of 10 in intensity
CVS: S1-S2 irregular and tachycardic
Conjunctival hemorrhage on the left
Chest: rales B/L
Abdomen: Soft, NT
Extremities: B/L edema,
CERTIFIED APPLIANCE SERVICE TECHNICIAN: Non focal exam
# Acute on chronic HFpEF
IV diuretics Lasix 80 mg daily
Cardizem drip as needed to keep heart rate under control
Daily weights intake output charting
2 gram sodium diet
Troponin negative
CHF education
Cardiology following
# A-fib with RVR
Cardiology planning for DAISHA with cardioversion in the morning
Continue Eliquis
# Coronary disease with history of bare-metal stent stent to left circumflex
Chronically occluded RCA by catheter 2018
Continue atorvastatin, beta-allison, Eliquis
# Hypertension-on amlodipine, metoprolol as outpatient-hold amlodipine while on Cardizem drip.
# Hyperlipidemia/atherosclerosis-continue statin
# CKD stage III
# Chronic anemia-likely secondary to chronic disease. Gets Procrit injections as outpatient. Check iron studies
# Chronic vertigo
# History of DVT
# GERD/hiatal hernia
# DJD/spinal stenosis
# Diverticulosis
# History of prostate cancer with radiation treatment in the past/chronic suprapubic catheter
# DNR per discussion with patient's daughter at bedside
Discussed with cardiology
Anticipated Discharge: Within 24 hours
Subjective/Interval History
-
Date of Service: December 31, 2024
Objective Data
-
Labs:
Laboratory Results
12/31/24
05:19
WBC 7.6
Hgb 9.6 L
Hct 26.9 L
Plt Count 196
Sodium 139
Potassium 3.8
Chloride 101
Carbon Dioxide 26
BUN 49 H
Creatinine 1.8 H
Glucose 130 H
Calcium 9.0
Vital Signs:
Vital Signs
Temp Pulse Resp BP Pulse Ox
97.9 F 100 20 115/75 95
12/31/24 07:00 12/31/24 11:00 12/31/24 07:00 12/31/24 09:53 12/31/24 08:00
I&O
12/30/24 12/31/24 01/01/25
06:59 06:59 06:59
Intake Total 240 / 240
Output Total 1725 / 1725 300 / 300
Balance -1485 / -1485 -300 / -300
[2024-12-31] MEDS: TYLENOL 1000 MG PO (11:36)
[2024-12-31 12:11] LABS: COVID-19 Antigen Negative (Negative)
--- NOTE | 2024-12-31 12:19 | PTCARENOTE ---
Tele- Afib. HR 90-130s. Cardizem gtt infusing at 10 ml/hr. Assessment completed as documented. Plan of care reviewed w/ pt and daughter Mita on telephone and verbalizes understanding. Pt c/o headache 11/16. Shazia VARGHESE aware and Tylenol ordered and
administered. Currently OOB in chair; call jalen w/in reach.
[2024-12-31 12:34] LABS: Iron 45 ug/dl (49-181)
[2024-12-31 12:43] LABS: Percent Saturation 22 % (20-50); Total Iron Binding Capacity 204 ug/dl (261-462)
[2024-12-31 13:26] LABS: Vitamin B12 531 pg/ml (239-931)
--- NOTE | 2024-12-31 16:36 | CM ---
CM following for DC planning needs.
Met w/ patient and dtr. at bedside to complete initial assessment.
Pt. was also working w/ therapy at this time.
Pt. resides w/ spouse in a private, 1 level condo. Condo is accessible via [address].
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
Pt. does have difficulty w/ stairs.
Pt. had used VN in the past thru [facility]. Not currently open for services.
Goal is for home.
Will follow.
[2024-12-31] MEDS: MIRALAX 17 GRAMS PO (17:05)
[2024-12-31] MEDS: LIPITOR 10 MG PO (17:05)
[2024-12-31] MEDS: ATROVENT NEBULES 0.5 MG INH (18:44)
[2024-12-31] MEDS: TOPROL XL 50 MG PO (19:50)
--- NOTE | 2024-12-31 21:51 | PTCARENOTE ---
Rec'd pt at change of shift. Pt AAO*3, VSS, and Afib on TELE monitor. Cardizem infusing at 10mg per hour. Pt denies having any pain or discomfort. Pt NPO at midnight for possible cardioversion/DAISHA tomorrow. Pt now resting with call rao in
reach and plan of care ongoing. See MAR and flowchart for full pt care and assessment.
[2024-12-31] MEDS: MELATONIN 5 MG PO (22:23)
[2025-01-01] VITALS (11 sets, daily range): BP systolic 96–141; BP diastolic 64–89; BMI 32.6
[2025-01-01 04:43] LABS: Blood Urea Nitrogen 51 mg/dl (9-20); Calcium 9.2 mg/dl (8.4-10.2); Carbon Dioxide 27 mmol/L (22-30); Chloride 100 mmol/L (98-107); Estimated Creatinine Clearance 27 ml/min; Glucose 149 mg/dl (70-99); Potassium 3.8 mmol/L (3.5-5.1); Sodium 138 mmol/L (135-145); eGFR 33.93
[2025-01-01] MEDS: CARDIZEM 125 IV (06:34)
[2025-01-01] MEDS: TOPROL XL 50 MG PO ×2 (08:07→19:22)
[2025-01-01] MEDS: ELIQUIS 2.5 MG PO ×2 (08:07→19:23)
[2025-01-01] MEDS: LASIX 80 MG IV (08:07)
[2025-01-01] MEDS: ISORDIL 10 MG PO ×2 (08:13→19:22)
--- NOTE | 2025-01-01 10:34 | W.PN.UPDATE ---
Update Note
Progress Note Update
- Unable to pass DAISHA probe despite Anesthesiologist's assistance with a glide scope and even after airway intubation to subsequently try to pass the DAISHA probe.
- Primary Carpenter Railcar updated who will consult GI.
- Daughter updated via telephone.
--- NOTE | 2025-01-01 10:40 | W.PN.UPDATE ---
Update Note
Progress Note Update
Keep pt NPO , GI will scope him today
--- NOTE | 2025-01-01 10:41 | W.PN.UPDATE ---
Update Note
Progress Note Update
- Unable to pass DAISHA probe despite Anesthesiologist's assistance with a glide scope and even after airway intubation to subsequently try to pass the DAISHA probe; unsuccessful repeated attempts.
- Primary Instrument Person updated who will consult GI.
- Daughter updated via telephone.
- 40 minutes were spent at the patient's bedside in the procedure room to try to pass the DAISHA probe with Anesthesiology assistance.
--- NOTE | 2025-01-01 11:15 | PTCARENOTE ---
Pt returned to room from DAISHA. Unable to perform study. GI at bedside. Daughter Mita on telephone translating. Plan of care reviewed w/ daughter and pt and verbalizes understanding. VSS. Nicole perales d/c per provider order. Madonna Diaz ok to hold
stat PO meds until pt returns from study.
--- NOTE | 2025-01-01 12:03 | CON.GI ---
Addendum entered and electronically signed by Ari Garner MD 01/01/25 15:34:
The patient was seen and examined by me independently in collaboration with the nurse practitioner.
Past medical history/social history/medications/allergies/family history reviewed.
Lab data and imaging data reviewed.
84-year-old gentleman multiple medical issues as outlined below who is planning on getting ablation for A-fib with RVR but they were unable to pass the probe so GI was consulted. I discussion with the patient, he has dysphagia for years which has
been nonprogressive. More prominent with foods although he does noted with liquids if he drinks a large amount he will belch. He was told years ago had narrowing of his esophagus. Daughter has records and will bring him in tomorrow. I discussed
with the daughter on the phone with patient as well, patient is [place]-speaking.
Recommended esophagram as below which was done. It showed a small focal area of either extrinsic compression mass versus other process upon the right side of the mid thoracic esophagus versus right sided intramural esophageal lesion with slight
deviation of the trachea to the left. Consider CT chest.
Patient's GFR is [address] unable to [address] with contrast. I discussed with multiple radiologist, hospitalist, diplomatic courier and plan is for MRI for further evaluation. Depending on the etiology if this is extrinsic compression versus esophageal we
will alter our management. I think it is best to pursue less invasive testing first given his medical comorbidities. If he does need an endoscopy, we will likely need to hold the Eliquis for 2 days prior.
Original Note:
Consultation
-
Date/Time Consultation Requested: 01/01/25 1030
Date/Time Consultation Performed: 01/01/25 1100
Requesting Provider: fadia Nunez MD
Performing Provider: [place] Natarajan, Argelia Garner MD
Reason for Consultation: unable to pass DAISHA probe- hx dysphagia
Medical History
Chief Complaint / HPI
Chief Complaint: dysphagia
History of Present Illness:
Pt is an 84yo with hx multiple medical issues afib on Eliquis, CAD/stent , prostate CA with prior XRT, CHF, HTN, hyperlipidemia, CKD, chronic venous insufficiency, DVT, anemia, GERD, fatigue, arthritis, lung nodule,hx GI bleed [facility] family unsure of
details, colon polyps, ileus, chronic constipation, SP cath, bladder outlet obstruction presents with shortness of breath and cough with abdominal and LE swelling. On admission noted with Afib with RVR, CHF exacerbation, anemia . He has been
followed by cardiology and for DAISHA/CV 01/01 but unable to pass probe and noted with hx dysphagia and asked to evaluate. In review with patient and daughter pt has had some chronic dysphagia worse with solids. He will cough and belch at times with
eating and feeling of scratchiness in throat. He has had weight up and down with cardiac issue but denies nausea, vomiting or hematemesis. Hx colonoscopy 2007 with polyp and family unsure about prior EGD but did have GI bleed in past at [facility] with work up unclear. He otherwise admits to constipation with magnesium, senna and miralax use. He does have abdominal pain at time with constipation. he denies any issue with rectal bleeding. He is on chronic Eliquis but denies NSAID
use with Protonix daily prior to admission.
Past Medical History
Past Medical History: Arrhythmias (afib ), CAD, Cancer (prostate CA with prior XRT), CHF, HTN, Hypercholesterolemia, Renal Failure and Other (chronic venous insufficiency, DVT, anemia, GERD, fatigue, arthritis, hx GI bleed [facility] family unsure of
details, colon polyps, ileus, chronic constipation, SP cath, bladder outlet obstruction, lung nodule )
Past Surgical History: Appendectomy, Cardiac (angioplasty with stent ) and Other (stent 2011, hernia repair 2018, sinus surgery 2012)
Social History
Tobacco: Non-Smoker
Alcohol: None
Drug: None
Personal:
Living: With Family
Employment: Retired
Family History
Family History: Other (no family hx colon CA or polyps)
Allergies / Home Medications
Allergy/AdvReac Type Severity Reaction Status Date / Time
No Known Allergies Allergy Verified 12/30/24 16:18
�Medication �Instructions �Recorded
amlodipine 5 mg tablet 2.5 mg PO DAILY Blood Pressure 04/30/24
apixaban 2.5 mg tablet (Eliquis) 2.5 mg PO BID Blood Clot 04/30/24
Prevention/Tx
cholecalciferol (vitamin D3) 25 50 mcg PO DAILY Supplement 04/30/24
mcg (1,000 unit) capsule (Vitamin
D3)
cranberry extract 157.5 1 cap PO QPM Supplement ##0 04/30/24
sj-g-[id number] 500 mg capsule
cyanocobalamin (vitamin B-12) 1,000 mcg PO DAILY Supplement 04/30/24
1,000 mcg tablet
diclofenac sodium 1 % topical gel 1 ea topical DAILYPRN PRN all 04/30/24
joints
epoetin gila 40,000 unit/mL 40,000 unit SC Q3W RED BLOOD CELLS 04/30/24
injection solution (Procrit)
fluticasone propionate 50 2 spray intranasal BID 04/30/24
mcg/actuation nasal Lung/Breathing Issues
spray,suspension
ipratropium bromide 17 2 puff inhalation R QPM 04/30/24
mcg/actuation HFA aerosol inhaler Lung/Breathing Issues
(Atrovent HFA)
ketoconazole 2 % topical cream 1 applic topical BIDPRN PRN b/l 04/30/24
feet
melatonin 5 mg tablet 5 mg PO HS Sleep 04/30/24
pantoprazole 40 mg tablet,delayed 40 mg PO DAILY Gastrointestinal 04/30/24
release Issue
phenolphthalein-docusate sodium 90 1 cap PO DAILYPRN PRN constiaption 04/30/24
mg-83 mg capsule ##0
polyethylene glycol 3350 17 gram 17 g PO DAILYPRN PRN constipation 04/30/24
oral powder packet (Miralax)
propylene glycol-glycerin 0.6 1 drp ophthalmic (eye) BIDPRN PRN 04/30/24
%-0.6 % eye drops in a dropperette both eyes
(Soothe Lubricant)
atorvastatin 10 mg tablet 10 mg PO QPM #30 tabs 05/11/24
ferrous sulfate 325 mg (65 mg 325 mg PO DAILY #30 tabs 05/11/24
iron) tablet (FeroSul)
isosorbide dinitrate 10 mg tablet 10 mg PO BID #30 tabs 05/11/24
metoprolol succinate 50 mg 50 mg PO BID #30 tabs 05/11/24
tablet,extended release 24 hr
sennosides 8.6 mg-docusate sodium 2 tab PO BID Constipation 12/30/24
50 mg tablet
torsemide 20 mg tablet 20 mg PO BID Fluid 12/30/24
Retention/Swelling
doxazosin 1 mg tablet 1 mg PO QPM Blood Pressure 12/31/24
Review of Systems
-
History Source: Patient
Constitutional: Reports Other (weight up and down )
EENT: Reports Other (+ dysphagia with solids )
Respiratory: Reports Cough and Trouble Breathing (on admission with still some wheezing )
Cardiac: Reports Chest Pain (at times )
Abdomen/GI: Reports Abdominal Pain (with constipation) and Constipated
: Reports Other (SP cath )
Musculoskeletal: Reports Edema
Skin: Reports No Symptoms
Neurological: Reports Weakness
Endocrine: Reports No Symptoms
Hematologic/Lymphatic: Reports No Symptoms
Vital Signs
Temp Pulse Resp BP Pulse Ox
97.4 F 86 18 110/64 95
01/01/25 11:16 01/01/25 11:14 01/01/25 11:16 01/01/25 11:14 01/01/25 11:16
Physical Exam
Exam
General: Other (elderly male -- maltese speaking no acute distress )
HEENT: Normocephalic and Anicteric
Respiratory: Wheezes (slight exp wheeze)
Cardiac: Irregular Rhythm
GI: Soft, Non Tender and Non Distended
Musculoskeletal: No Clubbing and No Cyanosis
Skin: Warm and Dry
Neuro: Awake, Alert and AO x 3
Psych: Calm
Results
WBC 7.6 10^3/uL (4.8-10.8) 12/31/24 05:19
Hgb 9.6 g/dL (13.0-18.0) L 12/31/24 05:19
Hct 26.9 % (39.0-52.0) L 12/31/24 05:19
MCV 89.4 fL (80.0-94.0) 12/31/24 05:19
Plt Count 196 10^3/uL (130-400) 12/31/24 05:19
Absolute Neuts (auto) 4.9 10^3/uL (1.4-6.5) 12/31/24 05:19
Sodium 138 mmol/L (135-145) 01/01/25 03:42
Potassium 3.8 mmol/L (3.5-5.1) 01/01/25 03:42
Chloride 100 mmol/L (98-107) 01/01/25 03:42
Carbon Dioxide 27 mmol/L (22-30) 01/01/25 03:42
BUN 51 mg/dl (9-20) H 01/01/25 03:42
Creatinine 1.9 mg/dL (0.7-1.3) H 01/01/25 03:42
Calcium 9.2 mg/dl (8.4-10.2) 01/01/25 03:42
Total Bilirubin 1.0 mg/dl (0.2-1.3) 12/30/24 16:24
AST 20 U/L (17-59) 12/30/24 16:24
ALT 21 U/L (0-50) 12/30/24 16:24
Alkaline Phosphatase 55 U/L (38-126) 12/30/24 16:24
Diagnostic Image Results:
05/11/24 CT Chest W/o Iv Contrast
1. SMALL PERIPHERAL TREE-IN-BUD ENDOBRONCHIAL OPACITIES in the peripheral aspect of the right upper and middle lobes consistent with MILD PERIPHERAL ENDOBRONCHIAL INFECTION.
2. Solid pulmonary nodules in the right upper lobe (7.8 mm) and in the right lower lobe (8.2 mm which are probably infectious in etiology.
3. Chronic granulomatous disease infection with calcified mediastinal lymph nodes and small calcified pulmonary granulomas.
4. Severe calcific atherosclerotic plaque in the coronary arteries.
5. Severe discogenic degenerative disease at T12/L1.
6. Moderate right convex curvature of the midthoracic spine.
Prior GI Procedures:
EGD: ? in past per family
Colonoscopy: last 2007 wit polyps
Assessment / Plan
-
Pt is an 84yo with hx multiple medical issues afib on Eliquis, CAD/stent , prostate CA with prior XRT, CHF, HTN, hyperlipidemia, CKD, chronic venous insufficiency, DVT, anemia, GERD, fatigue, arthritis, lung nodule,hx GI bleed [facility] family unsure of
details, colon polyps, ileus, chronic constipation, SP cath, bladder outlet obstruction presents with shortness of breath and cough with abdominal and LE swelling. On admission noted with Afib with RVR, CHF exacerbation, anemia . He has been
followed by cardiology and for DAISHA/CV 01/01 but unable to pass probe and noted with hx dysphagia and asked to evaluate. In review with patient and daughter pt has had some chronic dysphagia worse with solids. He will cough and belch at times with
eating and feeling of scratchiness in throat. He has had weight up and down with cardiac issue but denies nausea, vomiting or hematemesis. Hx colonoscopy 2007 with polyp and family unsure about prior EGD but did have GI bleed in past at [facility] with work up unclear. He otherwise admits to constipation with magnesium, senna and miralax use. He does have abdominal pain at time with constipation. he denies any issue with rectal bleeding. He is on chronic Eliquis but denies NSAID
use with Protonix daily prior to admission.
-solid dysphagia
-failed passage of DAISHA probe
-afib with RVR on Eliquis due for CV
acute on chronic CHF
-chronic anemia
-chronic constipation
-hx prior GI bleeding [facility] - family unclear of details
-hx ileus
other med problems:
-CAD with prior stent
-HTN
-hyperlipidemia
-CKD
-vertigo
-DVT
-GERD
-DJD/arthritis
-diverticulosis
-prostate CA with prior radiation
-hx lung nodule
PLAN:
etiology of dysphagia/inability to pass probe related to underlying stricture, mass, web, dysmotility vs other
discussed options of esophagram vs diagnostic EGD with recent Eliquis with risk/benefit with pt and daughter
plan for esophagram today
pending results may be cleared to proceed with DAISHA vs need for EGD on Saturday after Eliquis wash out
NPO - ok to resume diet after testing
nursing reviewed with cardiology for med hold prior
trend hbg
cont PPI daily
daughter to try to obtain prior [facility] work up
cont senna/miralax regiment with hx chronic constipation
with language barrier family assist with consult and able to provide additional history
-
-
Thank you for consultation and allowing me to participate in the patient's care. Please call the carbon rod inserter GI physician during the after hours with any questions or concerns.
--- NOTE | 2025-01-01 12:57 | PTCARENOTE ---
Pt returned to room from DAISHA. Unable to perform study. GI at bedside. Daughter Mita on telephone translating. Plan of care reviewed w/ daughter and pt and verbalizes understanding. VSS. Cardizem gtt d/c per provider order. Madonna Diaz ok to hold
stat PO meds until pt returns from esophageal x-ray.
--- NOTE | 2025-01-01 12:58 | W.PN.CARDCBS ---
Addendum entered and electronically signed by Jose Diaz MD 01/01/25 17:57:
84-year-old man admitted from the office with acute on chronic HFpEF and recurrent atrial fibrillation, for DAISHA cardioversion today. At the time of transesophageal echo, probe could not be passed, suspect esophageal obstruction.
PMH/PSH: PAF, CAD, circumflex PCI 2011, occluded RCA, hypertension, hyperlipidemia, CKD 3B, anemia, GERD, prostate cancer XRT with suprapubic cath
Medications: Apixaban 2.5 twice daily, iron, atorvastatin 10 mg a day, isosorbide 10 twice daily, pantoprazole 40 mg a day, Senokot, melatonin, furosemide 80 mg IV daily, Atrovent, metoprolol ER 50 mg twice daily
117/89, pulse 82, respiratory 20, temp is 36.3, intake and output probably incomplete, weight is 83 kg down 0.8 kg, lungs are clear, irregular rate and rhythm, no obvious murmurs JVD okay some edema
ECG: A-fib, nonspecific ST-T wave changes
BUN 51, creatinine 1.9, potassium 3.8
Echo: EF 55-60%, mild LVH, aortic sclerosis, mild TR, pulmonary artery systolic pressure 35
Impression:
See below
Plus esophageal abnormality
Plan:
From the standpoint of heart failure, we will convert to oral torsemide in AM. Heart failure is well-controlled. We can consider the addition of hydralazine to nitrates.
For his atrial fibrillation, continue appropriate dose Eliquis. Will plan on rate control for period of several weeks and then cardioversion without transesophageal echo.
For his esophageal abnormality, get GI consult. We may need to switch to heparin if endoscopic evaluation is needed.
We will try to discontinue diltiazem and uptitrate metoprolol.
It will be important to maintain sinus rhythm if possible given history of hematuria and possible need to interrupt anticoagulation. Previously he had been on amiodarone years ago in the setting of hospitalization and atrial fibrillation. Restart
amiodarone. I suspect likelihood of left atrial appendage thrombus is relatively low since he has been on Eliquis although at slightly lower dose, and chance of chemical cardioversion is probably fairly low.
Original Note:
Today's Communication / Plan
-
Continue IV diuresis, transition to torsemide rather than Lasix
Start amiodarone 200 mg 3 times daily and continue Toprol 50 mg twice daily for rate control
Plan for MRI of chest per GI
Continue Eliquis
Replete potassium
Impression / Plan
-
PCP: Dr. Wolfe
Auto Radio Mechanic: Dr. BE Diaz
Impression:
Presented with SOB, weight gain 12/30/24
Acute on chronic HFpEF, proBNP 15,500
Atrial fibrillation with RVR
Paroxysmal atrial fibrillation
Chronic Eliquis anticoagulation
Hyponatremia
CAD
BMS to LCx 2011
Chronically occluded mid RCA by cath 01/14/2019
HTN
HLD
CKD 3b
Chronic anemia
GERD
h/o prostate cancer s/p XRT
Chronic suprapubic catheter
DNR code status
Echo 02/07/2023: EF 65%, mod cLVH, grade I DD, mild MR, trace TR
Echo 05/01/2024: EF 55%, mild cLVH, mild with peak/mean gradients 16/8 mmHg, mild TR, estimated PAP 30-35 mmHg
Echo 12/31/2024: TDS: EF 55 to 60%. Mild concentric LVH. Aortic sclerosis without stenosis. Mild TR with PAP 35 mmHg
Plan:
-Presented 12/30/2024 with shortness of breath, weight gain and was found to be in acute heart failure with preserved ejection fraction. Patient also noted to have atrial fibrillation with rapid ventricular response
-Acute heart failure with preserved ejection fraction, proBNP 15,500 on admission.
Ongoing diuresis initially with Lasix 80 mg IV. Still appears to be volume overloaded without great response to IV Lasix. Transition to IV torsemide 20 mg twice daily starting 01/02/25.
Known CKD, creatinine relatively stable at 1.9 which is baseline; continue to monitor with diuresis
Potassium 3.8, replete given ongoing diuresis
Echo stable with preserved ejection fraction 55 to 60% this admission
Unable to start LINDA/ARB/ARNI/aldosterone antagonist due to CKD 3b and active diuresis
Not ideal candidate for SGLT-2 with chronic suprapubic catheter in place.
-A-fib with rapid ventricular response on admission, unclear duration
Likely exacerbating acute heart failure exacerbation
Patient was not taking Eliquis twice a day as outpatient therefore recommended DAISHA prior to CV
Attempted DAISHA but unable to pass the probe 01/01/25 and patient now admitting to dysphagia. GI has been consulted
Continue rate control strategy. Start amiodarone 200 mg 3 times daily (01/01/2025) and continue Toprol 50 mg twice daily.
Cont Eliquis 2.5 mg BID (age 84, Cre 1.8)
-Dysphagia, unable to complete DAISHA; GI following
Initial plan was for EGD. However patient's esophageal x-ray showed small focal area of extrinsic impression (mass versus other process (he upon the right side of mid thoracic esophagus versus intramural esophagus lesion with slight deviation of
trachea to the left. After discussing with GI patient now will have MRI.
Per GI patient can eat and take oral medications
Plan was discussed with patient, patient's daughter Mita over the phone, nursing, hospitalist and GI. I also used language line services to discuss ongoing treatment plan and decision with patient. Time including discussion with collaborating
providers, treatment plan and decision, discussion with daughter and nursing medical staff staff, documentation was 52 minutes
HPI: Patient presented to cardiology office today with complaints of shortness of breath, wheezing, cough, worsening lower extremity edema, weight gain as well as palpitations and tachycardia. EKG in office showed atrial fibrillation with rapid
ventricular response and was noted to be hypotensive with blood pressure of 102/56. He reportedly had shingles vaccination on 12/20, and afterwards developed noted symptoms as well as swollen face. Daughter had called the office on 12/28 due to
symptoms and was initially instructed to take patient to the ER, however they declined and he was recommended 2 extra doses of torsemide 20 mg, with last increased dose yesterday. Despite some weight loss, he had worsening shortness of breath. He
was brought to ER from [facility] office. Reportedly he has not been taking his Eliquis twice daily due to prior hematuria.
Progress Note - Auto Radio Mechanic
Subjective
Date of Service: January 01, 2025
Patient seen and examined. Patient seen in coordination with language line services. Patient sitting up in chair still appears to be slightly short of breath overall reports breathing is getting better. Notes throat is sore from attempted DAISHA
earlier today. Denies chest pain
Objective
Labs:
12/31/24 05:19
01/01/25 03:42
Labs
Hgb 9.6 g/dL (13.0-18.0) L 12/31/24 05:19
Hct 26.9 % (39.0-52.0) L 12/31/24 05:19
Plt Count 196 10^3/uL (130-400) 12/31/24 05:19
Sodium 138 mmol/L (135-145) 01/01/25 03:42
Potassium 3.8 mmol/L (3.5-5.1) 01/01/25 03:42
BUN 51 mg/dl (9-20) H 01/01/25 03:42
Creatinine 1.9 mg/dL (0.7-1.3) H 01/01/25 03:42
Glucose 149 mg/dl (70-99) H 01/01/25 03:42
Troponins
12/30/24 12/30/24 12/31/24
16:24 20:44 00:59
Troponin I < 0.012 Cancelled < 0.012
12/31/24
05:19
Troponin I < 0.012
Vital Signs and I&O:
Vital Signs
Temp Pulse Resp BP Pulse Ox
97.4 F 86 18 110/64 95
01/01/25 11:16 01/01/25 11:14 01/01/25 11:16 01/01/25 11:14 01/01/25 11:16
Vital Signs
Temp Pulse Resp BP Pulse Ox
97.4 F 86 18 110/64 95
01/01/25 11:16 01/01/25 11:14 01/01/25 11:16 01/01/25 11:14 01/01/25 11:16
Intake & Output
12/30/24 12/31/24 01/01/25 01/02/25
06:59 06:59 06:59 06:59
Intake Total 240 / 240 1080 / 1080
Output Total 1725 / 1725 800 / 800 900 / 900
Balance -1485 / -1485 280 / 280 -900 / -900
Physical Exam
Physical Exam
GEN: No distress, awake, Ox3, sitting in chair
HEENT: supple, anicteric, mmm
LUNGS: Diminished with crackles at bases, no wheezes/rales
CV: Irregularly irregular, S1/S2, 2/6 syst murmur, no rub or gallop
ABD: soft, BS+, NT/ND
EXT: Mild edema in upper extremity right greater than left, trace edema lower extremity, no clubbing or cyanosis. Compression socks in place
NEURO: Gross non-focal
SKIN: No rash, areas of ecchymosis and skin tears on upper extremity
--- NOTE | 2025-01-01 13:56 | W.PN.HOSP.TC ---
Today's Communication/Plan
-
MRI chest
AMiodarone
Assessment / Plan
Assessment / Plan
84-year-old much seen cardiology office today with shortness of breath cough and lower extremity swelling and weight gain. He also had some palpitations. ECG in cardiology office showed A-fib with RVR and was sent to the ER. Patient had shingles
vaccine on 413 and had edema of the face was instructed to go to ER however took extra doses of torsemide. He lost some weight but still had shortness of breath. Because of intermittent hematuria he has been taking Eliquis only once a day and not
twice a day.
Chest x-ray reviewed by me-cardiomegaly fluid overload
EKG reviewed by me-A-fib with rate of 138, left axis deviation, nonspecific ST-T changes
Used language line bilingual interpreter. Headache is better. Shortness of breath is better now he had some breadman
CVS: S1-S2 irregular and tachycardic
Conjunctival hemorrhage on the left
Chest: rales B/L
Abdomen: Soft, NT
Extremities: B/L edema better
CEO AND PRESIDENT: Non focal exam
# Acute on chronic HFpEF
Weight is the same.
Torsemide started
Cardizem drip as needed to keep heart rate under control
Daily weights intake output charting
2 gram sodium diet
Troponin negative
CHF education
Cardiology following
Try DAISHA today could not pass the scope because of esophageal narrowing
X-ray shows thoracic esophagus within upper limits of normal. Small focal area of either extrinsic impression mass versus other process upon the right side of the mid thoracic esophagus versus right-sided intraluminal esophageal lesion with slight
deviation of the trachea to the left. CT of the chest with IV contrast recommended
With the patient's CKD we cannot do IV dye so radiology recommended MRI
# A-fib with RVR
Amiodarone started
Continue Eliquis. May need to hold if patient needs EGD and dilatation
# Coronary disease with history of bare-metal stent stent to left circumflex
Chronically occluded RCA by catheter 2018
Continue atorvastatin, beta-allison, Eliquis
# Hypertension-on amlodipine, metoprolol as outpatient-currently on metoprolol
# Hyperlipidemia/atherosclerosis-continue statin
# CKD stage III
# Chronic anemia-likely secondary to chronic disease. Gets Procrit injections as outpatient. Iron studies adequate
# Chronic vertigo
# History of DVT
# GERD/hiatal hernia- PPI
# DJD/spinal stenosis
# Diverticulosis
# Positive MRSA screen
# History of prostate cancer with radiation treatment in the past/chronic suprapubic catheter
# DNR per discussion with patient's daughter at bedside
Discussed with cardiology and GI
D/W Daughter and updated
D/W RN
Anticipated Discharge: 24 - 48 hours
Subjective/Interval History
-
Date of Service: January 01, 2025
Objective Data
-
Labs:
Laboratory Results
01/01/25
03:42
Sodium 138
Potassium 3.8
Chloride 100
Carbon Dioxide 27
BUN 51 H
Creatinine 1.9 H
Glucose 149 H
Calcium 9.2
Vital Signs:
Vital Signs
Temp Pulse Resp BP Pulse Ox
97.4 F 86 18 110/64 95
01/01/25 11:16 01/01/25 11:14 01/01/25 11:16 01/01/25 11:14 01/01/25 11:16
I&O
12/31/24 01/01/25 01/02/25
06:59 06:59 06:59
Intake Total 240 / 240 1080 / 1080
Output Total 1725 / 1725 800 / 800 900 / 900
Balance -1485 / -1485 280 / 280 -900 / -900
[2025-01-01] MEDS: VITAMIN D3 (cholecalciferol) 50 MCG PO (15:59)
[2025-01-01] MEDS: PACERONE 200 MG PO ×2 (15:59→21:38)
[2025-01-01] MEDS: PROTONIX 40 MG PO (15:59)
[2025-01-01] MEDS: FEOSOL 325 MG PO (15:59)
[2025-01-01] MEDS: SENOKOT-S PO (15:59)
[2025-01-01] MEDS: VITAMIN B-12 1000 MCG PO (16:00)
[2025-01-01] MEDS: KCL 40 MEQ PO (16:03)
[2025-01-01] MEDS: LIPITOR 10 MG PO (17:19)
[2025-01-01] MEDS: SENOKOT-S 2 TABLET PO (19:24)
[2025-01-01] MEDS: ATROVENT NEBULES 0.5 MG INH (20:01)
[2025-01-01] MEDS: RETACRIT 40000 UNITS SC (21:36)
[2025-01-01] MEDS: MELATONIN 5 MG PO (21:36)
--- NOTE | 2025-01-01 23:35 | PTCARENOTE ---
Rec'd pt at change of shift. Pt AAO*3, VSS, and AFib on TELE monitor. HR 110-120's. Pt resting with daughter at bedside. Pt denies any pain or discomfort at this time. Call rao within reach and plan of care ongoing. See MAr and flowchart for
full pt care and assessment.
[2025-01-02] VITALS (7 sets, daily range): BP systolic 112–148; BP diastolic 79–102; BMI 33.1
[2025-01-02 04:32] LABS: Blood Urea Nitrogen 57 mg/dl (9-20); Calcium 9.3 mg/dl (8.4-10.2); Carbon Dioxide 25 mmol/L (22-30); Chloride 101 mmol/L (98-107); Estimated Creatinine Clearance 26 ml/min; Glucose 197 mg/dl (70-99); Potassium 4.9 mmol/L (3.5-5.1); Sodium 137 mmol/L (135-145)
--- NOTE | 2025-01-02 09:25 | W.PN.GI.CBS2 ---
Today's Communication / Plan
-
mri, scope likely saturday pending results
Assessment / Plan
-
Pt is an 84yo with hx multiple medical issues afib on Eliquis, CAD/stent , prostate CA with prior XRT, CHF, HTN, hyperlipidemia, CKD, chronic venous insufficiency, DVT, anemia, GERD, fatigue, arthritis, lung nodule,hx GI bleed [facility] family unsure of
details, colon polyps, ileus, chronic constipation, SP cath, bladder outlet obstruction presents with shortness of breath and cough with abdominal and LE swelling. On admission noted with Afib with RVR, CHF exacerbation, anemia . He has been
followed by cardiology and for DAISHA/CV 01/01 but unable to pass probe and noted with hx dysphagia and asked to evaluate. In review with patient and daughter pt has had some chronic dysphagia worse with solids. He will cough and belch at times with
eating and feeling of scratchiness in throat. He has had weight up and down with cardiac issue but denies nausea, vomiting or hematemesis. Hx colonoscopy 2007 with polyp and family unsure about prior EGD but did have GI bleed in past at [facility] with work up unclear. He otherwise admits to constipation with magnesium, senna and miralax use. He does have abdominal pain at time with constipation. he denies any issue with rectal bleeding. He is on chronic Eliquis but denies NSAID
use with Protonix daily prior to admission.
-solid dysphagia
-failed passage of DAISHA probe
-afib with RVR on Eliquis due for CV
acute on chronic CHF
-chronic anemia
-chronic constipation
-hx prior GI bleeding [facility] - family unclear of details
-hx ileus
other med problems:
-CAD with prior stent
-HTN
-hyperlipidemia
-CKD
-vertigo
-DVT
-GERD
-DJD/arthritis
-diverticulosis
-prostate CA with prior radiation
-hx lung nodule
Esophagram 01/01 - Small focal area of either extrinsic impression (mass versus other process) upon the right side of the mid thoracic esophagus versus right-sided intramural esophageal lesion with slight deviation of the trachea to the left.
Consider Chest CT with intravenous and thick esophageal contrast for more complete evaluation.
PLAN:
After extensive discussion with rads plan MRI to evaluate if this mass is intrinsic vs extrinsic (cannot do CT due to Cr)
Likely will need EGD vs EUS on Saturday with Dr. Salgado
Eliquis hold 48 hours start hep gtt d/w hospitalist and cardiology
Diuresis per cards
Daughter to bring records, updated her today
Subjective
Subjective
Date of Service: January 02, 2025
pt has concern about weight gain
Objective
Data Reviewed
Laboratory Data:
Laboratory Results
12/31/24 05:19
01/02/25 03:36
Laboratory Results
Magnesium 2.6 mg/dl (1.6-2.3) H 12/31/24 05:19
Total Bilirubin 1.0 mg/dl (0.2-1.3) 12/30/24 16:24
AST 20 U/L (17-59) 12/30/24 16:24
ALT 21 U/L (0-50) 12/30/24 16:24
Alkaline Phosphatase 55 U/L (38-126) 12/30/24 16:24
Vital Signs and I&O:
Vital Signs
Temp Pulse Resp BP Pulse Ox
97.7 F 118 16 112/82 99
01/02/25 07:57 01/02/25 08:00 01/02/25 07:57 01/02/25 07:57 01/02/25 07:57
I&O
01/01/25 01/02/25 01/03/25
06:59 06:59 06:59
Intake Total 1080 / 1080 250 / 250
Output Total 800 / 800 1800 / 1800
Balance 280 / 280 -1550 / -1550
Physical Exam
Physical Exam
GI: Non Distended and Non Tender
[2025-01-02] MEDS: ELIQUIS PO (09:26)
[2025-01-02] MEDS: PROTONIX 40 MG PO (09:30)
[2025-01-02] MEDS: SENOKOT-S 2 TABLET PO ×2 (09:30→19:38)
[2025-01-02] MEDS: PACERONE 200 MG PO ×3 (09:30→22:10)
[2025-01-02] MEDS: FEOSOL 325 MG PO (09:30)
[2025-01-02] MEDS: VITAMIN D3 (cholecalciferol) 50 MCG PO (09:30)
[2025-01-02] MEDS: VITAMIN B-12 1000 MCG PO (09:30)
[2025-01-02] MEDS: ISORDIL 10 MG PO ×2 (09:30→19:38)
[2025-01-02] MEDS: TOPROL XL 50 MG PO ×2 (09:30→15:16)
--- NOTE | 2025-01-02 10:32 | W.PN.HOSP.TC ---
Today's Communication/Plan
-
Change torsemide to Lasix
Change Eliquis to heparin drip
MRI
Intake output charting
Needs better rate control
Assessment / Plan
Assessment / Plan
84-year-old much seen cardiology office today with shortness of breath cough and lower extremity swelling and weight gain. He also had some palpitations. ECG in cardiology office showed A-fib with RVR and was sent to the ER. Patient had shingles
vaccine on 413 and had edema of the face was instructed to go to ER however took extra doses of torsemide. He lost some weight but still had shortness of breath. Because of intermittent hematuria he has been taking Eliquis only once a day and not
twice a day.
Chest x-ray reviewed by me-cardiomegaly fluid overload
EKG reviewed by me-A-fib with rate of 138, left axis deviation, nonspecific ST-T changes
Used daughter as interpretor. Headache is better. 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
CVS: S1-S2 irregular and tachycardic
Conjunctival hemorrhage on the left
Chest: rales B/L
Abdomen: Soft, NT
Extremities: B/L edema
INBOUND INGREDIENT LOGISTICS SPECIALIST: Non focal exam
# Acute on chronic HFpEF
A-fib with RVR
Weight
Torsemide changed to Lasix 80 IV BID
Cardizem as needed to keep heart rate under control
Daily weights intake output charting,2 gram sodium diet
Troponin negative
CHF education
Cardiology following
Likely rapid heart rate is causing problems with fluid retention
Heart rate control
DAISHA cardioversion could not be accomplished because of esophageal narrowing
Amiodarone started for chemical cardioversion and rate control
Hold Eliquis and start heparin drip
# Esophageal narrowing 01/01/25-DAISHA - could not pass the scope because of esophageal narrowing
X-ray shows thoracic esophagus within upper limits of normal. Small focal area of either extrinsic impression mass versus other process upon the right side of the mid thoracic esophagus versus right-sided intraluminal esophageal lesion with slight
deviation of the trachea to the left. CT of the chest with IV contrast recommended.
With the patient's CKD we cannot do IV dye so radiology recommended MRI.
# Coronary disease with history of bare-metal stent stent to left circumflex
Chronically occluded RCA by catheter 2018
Continue atorvastatin, beta-allison, Hold Eliquis
# Hypertension-on amlodipine, metoprolol as outpatient-currently on metoprolol
# Hyperlipidemia/atherosclerosis-continue statin
# CKD stage III
# Chronic anemia-likely secondary to chronic disease. Gets Procrit injections as outpatient. Iron studies adequate
# Chronic vertigo
# History of DVT
# GERD/hiatal hernia- PPI
# DJD/spinal stenosis
# Diverticulosis
# Positive MRSA screen
# History of prostate cancer with radiation treatment in the past/chronic suprapubic catheter
# DNR per discussion with patient's daughter at bedside
Discussed with cardiology and GI
D/W Daughter and updated on the phone
D/W RN
Time spent 50 minutes
Anticipated Discharge: > 48 hours
Subjective/Interval History
-
Date of Service: January 02, 2025
Objective Data
-
Labs:
Laboratory Results
01/02/25
03:36
Sodium 137
Potassium 4.9 D
Chloride 101
Carbon Dioxide 25
BUN 57 H
Creatinine 2.0 H
Glucose 197 H
Calcium 9.3
Vital Signs:
Vital Signs
Temp Pulse Resp BP Pulse Ox
97.7 F 118 16 112/82 99
01/02/25 07:57 01/02/25 08:00 01/02/25 07:57 01/02/25 07:57 01/02/25 07:57
I&O
04/25/25 04/26/25 04/27/25
06:59 06:59 06:59
Intake Total 1080 / 1080 250 / 250
Output Total 800 / 800 1800 / 1800 300 / 300
Balance 280 / 280 -1550 / -1550 -300 / -300
[2025-01-02 12:06] LABS: APTT 38.1 Sec (23.4-35.0); Hematocrit 31.2 % (39.0-52.0); Hemoglobin 11.3 g/dL (13.0-18.0); Mean Corp Hgb Conc. 36.2 g/dL (33.0-37.0); Mean Corpuscular Hgb 32.1 pg (27.0-31.0); Mean Corpuscular Volume 88.6 fL (80.0-94.0); Mean Platelet Volume 9.1 fL (7.4-10.4); Platelet Count 303 10^3/uL (130-400); Red Blood Cell Count 3.52 10^6/uL (4.70-6.10); White Blood Cell Count 14.8 10^3/uL (4.8-10.8)
[2025-01-02] MEDS: LASIX 80 MG IV ×2 (12:12→16:46)
[2025-01-02] MEDS: HEPARIN 25000 UNITS/250 ML IV (12:18)
--- NOTE | 2025-01-02 13:39 | W.PN.CARDCBS ---
Today's Communication / Plan
-
Uptitrate metoprolol and continue amiodarone for heart rate goal less than 110 bpm in A-fib
Continue IV Lasix
Impression / Plan
-
PCP: Dr. Wolfe
Pack Worker Supervisor: Dr. BE Diaz
Impression:
Presented with SOB, weight gain 12/30/24
Acute on chronic HFpEF, proBNP 15,500
Atrial fibrillation with RVR
Paroxysmal atrial fibrillation
Chronic Eliquis anticoagulation
Hyponatremia
CAD
BMS to LCx 2011
Chronically occluded mid RCA by cath 01/14/2019
HTN
HLD
CKD 3b
Chronic anemia
GERD
h/o prostate cancer s/p XRT
Chronic suprapubic catheter
DNR code status
Echo 02/07/2023: EF 65%, mod cLVH, grade I DD, mild MR, trace TR
Echo 05/01/2024: EF 55%, mild cLVH, mild with peak/mean gradients 16/8 mmHg, mild TR, estimated PAP 30-35 mmHg
Echo 12/31/2024: TDS: EF 55 to 60%. Mild concentric LVH. Aortic sclerosis without stenosis. Mild TR with PAP 35 mmHg
Plan:
Presented 12/30/2024 with shortness of breath, weight gain and was found to be in acute heart failure with preserved ejection fraction. Patient also noted to have atrial fibrillation with rapid ventricular response
-Acute heart failure with preserved ejection fraction:
proBNP 15,500 on admission
Appears volume overloaded on exam
Echo stable with preserved ejection fraction 55 to 60% this admission
Agree with Lasix 80 mg IV twice daily
Follow daily weights, renal function and electrolytes closely
Avoid MRA due to CKD
Not ideal candidate for SGLT-2 with chronic suprapubic catheter in place
-A-fib with rapid ventricular response on admission:
Likely exacerbating acute heart failure exacerbation
Attempted DAISHA but unable to pass the probe 01/01/25 and patient now admitting to dysphagia. GI has been consulted
Rate control strategy with metoprolol and amiodarone
Cont Eliquis 2.5 mg BID (age 84, Cre 1.8) - ok to transition to heparin gtt if needed from GI standpoint
Plan was discussed with patient's daughter over the phone
HPI: Patient presented to cardiology office today with complaints of shortness of breath, wheezing, cough, worsening lower extremity edema, weight gain as well as palpitations and tachycardia. EKG in office showed atrial fibrillation with rapid
ventricular response and was noted to be hypotensive with blood pressure of 102/56. He reportedly had shingles vaccination on 12/20, and afterwards developed noted symptoms as well as swollen face. Daughter had called the office on 12/28 due to
symptoms and was initially instructed to take patient to the ER, however they declined and he was recommended 2 extra doses of torsemide 20 mg, with last increased dose yesterday. Despite some weight loss, he had worsening shortness of breath. He
was brought to ER from [facility] office. Reportedly he has not been taking his Eliquis twice daily due to prior hematuria.
Progress Note - Pack Worker Supervisor
Subjective
Date of Service: January 02, 2025
No acute event events. Weight is up trending. Remains in rapid atrial fibrillation.
Objective
Labs:
01/02/25 11:45
01/02/25 03:36
Labs
Hgb 11.3 g/dL (13.0-18.0) L 01/02/25 11:45
Hct 31.2 % (39.0-52.0) L 01/02/25 11:45
Plt Count 303 10^3/uL (130-400) D 01/02/25 11:45
APTT 38.1 Sec (23.4-35.0) H 01/02/25 11:45
Sodium 137 mmol/L (135-145) 01/02/25 03:36
Potassium 4.9 mmol/L (3.5-5.1) D 01/02/25 03:36
BUN 57 mg/dl (9-20) H 01/02/25 03:36
Creatinine 2.0 mg/dL (0.7-1.3) H 01/02/25 03:36
Glucose 197 mg/dl (70-99) H 01/02/25 03:36
Troponins
12/30/24 12/30/24 12/31/24
16:24 20:44 00:59
Troponin I < 0.012 Cancelled < 0.012
12/31/24
05:19
Troponin I < 0.012
Vital Signs and I&O:
Vital Signs
Temp Pulse Resp BP Pulse Ox
97.8 F 135 18 119/79 96
01/02/25 11:54 01/02/25 13:00 01/02/25 11:54 01/02/25 12:12 01/02/25 11:54
Vital Signs
Temp Pulse Resp BP Pulse Ox
97.8 F 135 18 119/79 96
01/02/25 11:54 01/02/25 13:00 01/02/25 11:54 01/02/25 12:12 01/02/25 11:54
Intake & Output
12/31/24 01/01/25 01/02/25 01/03/25
06:59 06:59 06:59 06:59
Intake Total 240 / 240 1080 / 1080 250 / 250
Output Total 1725 / 1725 800 / 800 1800 / 1800 300 / 300
Balance -1485 / -1485 280 / 280 -1550 / -1550 -300 / -300
Physical Exam
Physical Exam
Gen: NAD, AA
HEENT: NC/AT, sclera anicteric
Neck: No JVD
CV: Irregularly irregular
Lungs: CTAB
Abd: S/ND
Ext: +LE edema
Skin: Warm, dry
Neuro: Non-focal
--- NOTE | 2025-01-02 15:59 | PTCARENOTE ---
Pt is AOx3, mostly Cuban speaking, utilized lyft driver as needed. No complaints of pain or discomfort. Heparin gtt started, eliquis on hold. Suprapubic lewis draining clear yellow urine. Call Vazquez within reach.
[2025-01-02] MEDS: LIPITOR 10 MG PO (18:04)
[2025-01-02] MEDS: ATROVENT NEBULES 0.5 MG INH (18:13)
[2025-01-02] MEDS: TOPROL XL 100 MG PO (19:38)
--- NOTE | 2025-01-02 20:40 | PTCARENOTE ---
Rec'd pt at change of shift. AAO*3, VSS, and Afib on TELE monitor. Pt with heparin gtt infusing per protocol. Pt denies any pain or discomfort. Daughter at bedside. Plan of care updated with patient. Pt now resting with call rao in reach and
plan of care ongoing. See MAR and flowchart for full pt care and assessment.
[2025-01-02] MEDS: MELATONIN 5 MG PO (22:10)
[2025-01-03] VITALS (10 sets, daily range): BP systolic 96–120; BP diastolic 64–96; PULSE 111; BMI 32.9
[2025-01-03 02:02] LABS: APTT 53.8 Sec (23.4-35.0)
[2025-01-03 02:16] LABS: Blood Urea Nitrogen 67 mg/dl (9-20); Calcium 9.3 mg/dl (8.4-10.2); Carbon Dioxide 25 mmol/L (22-30); Chloride 100 mmol/L (98-107); Estimated Creatinine Clearance 26 ml/min; Glucose 167 mg/dl (70-99); Potassium 4.3 mmol/L (3.5-5.1); Sodium 137 mmol/L (135-145)
[2025-01-03] MEDS: PROTONIX 40 MG PO (09:24)
[2025-01-03] MEDS: LASIX 80 MG IV ×2 (09:24→16:40)
[2025-01-03] MEDS: PACERONE 200 MG PO ×3 (09:25→22:38)
[2025-01-03] MEDS: VITAMIN B-12 1000 MCG PO (09:25)
[2025-01-03] MEDS: FEOSOL 325 MG PO (09:25)
[2025-01-03] MEDS: SENOKOT-S 2 TABLET PO (09:25)
[2025-01-03] MEDS: ISORDIL 10 MG PO ×2 (09:25→20:30)
[2025-01-03] MEDS: TOPROL XL 100 MG PO ×2 (09:25→20:30)
[2025-01-03] MEDS: VITAMIN D3 (cholecalciferol) 50 MCG PO (09:25)
[2025-01-03 09:44] LABS: APTT 105.7 Sec (23.4-35.0)
[2025-01-03] MEDS: HEPARIN 25000 UNITS/250 ML IV (09:46)
--- NOTE | 2025-01-03 10:06 | W.PN.CARDCBS ---
Today's Communication / Plan
-
Continue IV Lasix and hopefully can transition to oral diuretics in the next 24 to 48 hours
Impression / Plan
-
PCP: Dr. Wolfe
[employer] Wireman: Dr. BE Diaz
Impression:
Presented with SOB, weight gain 12/30/24
Acute on chronic HFpEF, proBNP 15,500
Atrial fibrillation with RVR
Paroxysmal atrial fibrillation
Chronic Eliquis anticoagulation
Hyponatremia
CAD
BMS to LCx 2011
Chronically occluded mid RCA by cath 01/14/2019
HTN
HLD
CKD 3b
Chronic anemia
GERD
h/o prostate cancer s/p XRT
Chronic suprapubic catheter
DNR code status
Echo 02/07/2023: EF 65%, mod cLVH, grade I DD, mild MR, trace TR
Echo 05/01/2024: EF 55%, mild cLVH, mild with peak/mean gradients 16/8 mmHg, mild TR, estimated PAP 30-35 mmHg
Echo 12/31/2024: TDS: EF 55 to 60%. Mild concentric LVH. Aortic sclerosis without stenosis. Mild TR with PAP 35 mmHg
Plan:
Presented 12/30/2024 with shortness of breath, weight gain and was found to be in acute heart failure with preserved ejection fraction. Patient also noted to have atrial fibrillation with rapid ventricular response
-Acute heart failure with preserved ejection fraction:
proBNP 15,500 on admission
Echo stable with preserved ejection fraction 55 to 60% this admission
Appears mildly volume overloaded on exam, continue IV lasix and hopefully transition to PO in the next 24-48hrs
Follow daily weights, renal function and electrolytes closely
Avoid MRA due to CKD
Not ideal candidate for SGLT-2 with chronic suprapubic catheter in place
-A-fib with rapid ventricular response on admission:
Likely exacerbating acute heart failure
Attempted DAISHA/DCCV but unable to pass the probe 01/01/25 and patient now admitting to dysphagia. GI has been consulted.
Rate control strategy with metoprolol and amiodarone
Cont heparin gtt as requested by GI, transition back to Eliquis 2.5 mg BID (age 84, Cre 1.8) when no further procedures planned
Plan was discussed with patient's daughter over the phone
HPI: Patient presented to cardiology office today with complaints of shortness of breath, wheezing, cough, worsening lower extremity edema, weight gain as well as palpitations and tachycardia. EKG in office showed atrial fibrillation with rapid
ventricular response and was noted to be hypotensive with blood pressure of 102/56. He reportedly had shingles vaccination on 12/20, and afterwards developed noted symptoms as well as swollen face. Daughter had called the office on 12/28 due to
symptoms and was initially instructed to take patient to the ER, however they declined and he was recommended 2 extra doses of torsemide 20 mg, with last increased dose yesterday. Despite some weight loss, he had worsening shortness of breath. He
was brought to ER from [facility] office. Reportedly he has not been taking his Eliquis twice daily due to prior hematuria.
Progress Note - [employer] Wireman
Subjective
Date of Service: January 03, 2025
No acute overnight events. Patient is resting comfortably out of bed to chair. No cardiac complaints.
Objective
Labs:
01/02/25 11:45
01/03/25 01:41
Labs
Hgb 11.3 g/dL (13.0-18.0) L 01/02/25 11:45
Hct 31.2 % (39.0-52.0) L 01/02/25 11:45
Plt Count 303 10^3/uL (130-400) D 01/02/25 11:45
APTT 105.7 Sec (23.4-35.0) H 01/03/25 09:12
Sodium 137 mmol/L (135-145) 01/03/25 01:41
Potassium 4.3 mmol/L (3.5-5.1) 01/03/25 01:41
BUN 67 mg/dl (9-20) H 01/03/25 01:41
Creatinine 2.0 mg/dL (0.7-1.3) H 01/03/25 01:41
Glucose 167 mg/dl (70-99) H 01/03/25 01:41
Vital Signs and I&O:
Vital Signs
Temp Pulse Resp BP Pulse Ox
97.4 F 97 20 119/84 96
01/03/25 07:43 01/03/25 09:22 01/03/25 07:43 01/03/25 09:24 01/03/25 07:43
Vital Signs
Temp Pulse Resp BP Pulse Ox
97.4 F 97 20 119/84 96
01/03/25 07:43 01/03/25 09:22 01/03/25 07:43 01/03/25 09:24 01/03/25 07:43
Intake & Output
01/01/25 01/02/25 01/03/25 01/04/25
06:59 06:59 06:59 06:59
Intake Total 1080 / 1080 250 / 250
Output Total 800 / 800 1800 / 1800 2200 / 2200
Balance 280 / 280 -1550 / -1550 -2200 / -2200
Physical Exam
Physical Exam
Gen: NAD, AA, OOB to chair
HEENT: NC/AT, sclera anicteric
Neck: No JVD
CV: Irregularly irregular
Lungs: CTAB on room air
Abd: S/ND
Ext: No LE edema
Skin: Warm, dry
Neuro: Non-focal
--- NOTE | 2025-01-03 11:42 | W.PN.HOSP.TC ---
Today's Communication/Plan
-
weight not moving much, ? a dose of Zaroxolyn
Await MRI results
Assessment / Plan
Assessment / Plan
84-year-old much seen cardiology office today with shortness of breath cough and lower extremity swelling and weight gain. He also had some palpitations. ECG in cardiology office showed A-fib with RVR and was sent to the ER. Patient had shingles
vaccine on 413 and had edema of the face was instructed to go to ER however took extra doses of torsemide. He lost some weight but still had shortness of breath. Because of intermittent hematuria he has been taking Eliquis only once a day and not
twice a day.
Chest x-ray reviewed by me-cardiomegaly fluid overload
EKG reviewed by me-A-fib with rate of 138, left axis deviation, nonspecific ST-T changes
Used daughter as interpretor. Headache is better. Shortness of breath is better now he had some development spec
CVS: S1-S2 irregular and tachycardic
Conjunctival hemorrhage on the left
Chest: rales B/L
Abdomen: Soft, NT
Extremities: B/L edema
BANJO REPAIRER: Non focal exam
# Acute on chronic HFpEF
A-fib with RVR
Weight
Torsemide changed to Lasix 80 IV BID
weight not moving much, ? a dose of Zaroxolyn
Cardizem as needed to keep heart rate under control
Daily weights intake output charting,2 gram sodium diet
Troponin negative
CHF education
Likely rapid heart rate is causing problems with fluid retention
Heart rate control, better today
DAISHA cardioversion could not be accomplished because of esophageal narrowing
Amiodarone started for chemical cardioversion and rate control
Hold Eliquis and continue heparin drip
# Esophageal narrowing 01/01/25-DAISHA - could not pass the scope because of esophageal narrowing
X-ray shows thoracic esophagus within upper limits of normal. Small focal area of either extrinsic impression mass versus other process upon the right side of the mid thoracic esophagus versus right-sided intraluminal esophageal lesion with slight
deviation of the trachea to the left. CT of the chest with IV contrast recommended.
MRI done results pending.
# Coronary disease with history of bare-metal stent stent to left circumflex
Chronically occluded RCA by catheter 2018
Continue atorvastatin, beta-allison, Hold Eliquis
# Hypertension-on amlodipine, metoprolol as outpatient-currently on metoprolol and cardizem
# Hyperlipidemia/atherosclerosis-continue statin
# CKD stage III
# Chronic anemia-likely secondary to chronic disease. Gets Procrit injections as outpatient. Iron studies adequate
# Chronic vertigo
# History of DVT
# GERD/hiatal hernia- PPI
# DJD/spinal stenosis
# Diverticulosis
# Positive MRSA screen
# History of prostate cancer with radiation treatment in the past/chronic suprapubic catheter
# DNR per discussion with patient's daughter at bedside
Discussed with cardiology
D/W Daughter and updated on the phone
D/W RN
Anticipated Discharge: 24 - 48 hours
Subjective/Interval History
-
Date of Service: January 03, 2025
Objective Data
-
Labs:
Laboratory Results
01/03/25 01/03/25 01/03/25
01:41 08:23 09:12
APTT 53.8 H Cancelled 105.7 H
Sodium 137
Potassium 4.3
Chloride 100
Carbon Dioxide 25
BUN 67 H
Creatinine 2.0 H
Glucose 167 H
Calcium 9.3
01/03/25
16:00
APTT Pending
Sodium
Potassium
Chloride
Carbon Dioxide
BUN
Creatinine
Glucose
Calcium
Vital Signs:
Vital Signs
Temp Pulse Resp BP Pulse Ox
97.4 F 97 20 119/84 96
01/03/25 07:43 01/03/25 09:22 01/03/25 07:43 01/03/25 09:24 01/03/25 07:43
I&O
01/02/25 01/03/25 01/04/25
06:59 06:59 06:59
Intake Total 250 / 250
Output Total 1800 / 1800 2200 / 2200 500 / 500
Balance -1550 / -1550 -2200 / -2200 -500 / -500
--- NOTE | 2025-01-03 13:59 | W.PN.GI.CBS2 ---
Addendum entered and electronically signed by Ari Garner MD 01/03/25 14:29:
pt optimized will proceed
Addendum entered and electronically signed by Ari Garner MD 01/03/25 14:09:
I also sent msg to cards/hospitalist ensure pt is optimized from diuersis standpoint
Original Note:
Today's Communication / Plan
-
egd tmwr
Assessment / Plan
-
84-year-old male past medical history of A-fib on Eliquis, CAD and stent, prostate cancer with recent radiation, CHF, CKD presenting with A-fib with RVR, CHF exacerbation, anemia. Plan was for cardioversion but unable to pass DAISHA probe. GI was
consulted. Esophagram done showed questionable extrinsic versus intrinsic lesion in the esophagus on January 01. CT was recommended patient unable to have done due to his kidney function so MRI was performed today which did not show an extrinsic
mass. Did show a renal cell carcinoma which is known to the patient and he follows with at [facility].
At this time, recommend upper endoscopy tomorrow. Risk, alternatives, benefits of endoscopy discussed with patient and daughter on phone who was translating in [place] risks including but not limited to bleeding, infection, perforation, slightly
higher risk if we were to dilate the esophagus. Dilation only be performed if there was a clear Schatzki's ring. Will biopsy esophagus and stomach and small bowel given his complaints of abdominal distention and other GI issues. Reviewed in
detail. Will hold heparin drip 6 hours prior to procedure. Last Eliquis Saturday night. Further recommendations pending endoscopy.
Subjective
Subjective
Date of Service: January 03, 2025
had mri done
c/o abd distenstion
I reviewed his records taken from [facility] daughter wrote a summary patient has a history of reflux, gallstones and had an ERCP in 2022 to remove a gallstone, colon polyps in 2017 as well as diverticulosis, gastric ulcer 1991, history of
obstruction in 2017, history of GI bleed in 2021 in 2018, irritable bowel syndrome followed with Dr. Mark, swallowing disorder. Patient has known renal cancer being followed by Dr. Miller at [facility]. Patient seen for nausea January 23, 2024 by
Nain and there was discussion of an endoscopy and colonoscopy.
Patient seen by Dr. Gillis April 2024 (daughter's note states doctor did not show up to appt) at that point the plan was discussed is nausea, abdominal distention, belching, difficulty swallowing hard food. There is some note of a hiatal hernia.
It is unclear to me when his last endoscopy was based on these records.
Objective
Data Reviewed
Laboratory Data:
Laboratory Results
01/02/25 11:45
01/03/25 01:41
Laboratory Results
APTT 105.7 Sec (23.4-35.0) H 01/03/25 09:12
Magnesium 2.6 mg/dl (1.6-2.3) H 12/31/24 05:19
Total Bilirubin 1.0 mg/dl (0.2-1.3) 12/30/24 16:24
AST 20 U/L (17-59) 12/30/24 16:24
ALT 21 U/L (0-50) 12/30/24 16:24
Alkaline Phosphatase 55 U/L (38-126) 12/30/24 16:24
Vital Signs and I&O:
Vital Signs
Temp Pulse Resp BP Pulse Ox
98.7 F 99 20 119/96 97
01/03/25 12:07 01/03/25 12:07 01/03/25 12:07 01/03/25 12:07 01/03/25 12:07
I&O
01/02/25 01/03/25 01/04/25
06:59 06:59 06:59
Intake Total 250 / 250
Output Total 1800 / 1800 2200 / 2200 500 / 500
Balance -1550 / -1550 -2200 / -2200 -500 / -500
Physical Exam
Physical Exam
GI: Distended and Non Tender
[2025-01-03 16:32] LABS: APTT 66.7 Sec (23.4-35.0)
[2025-01-03] MEDS: LIPITOR 10 MG PO (17:25)
[2025-01-03] MEDS: ATROVENT NEBULES 0.5 MG INH (19:25)
[2025-01-03] MEDS: SENOKOT-S PO (19:51)
--- NOTE | 2025-01-03 20:50 | PTCARENOTE ---
Received patient at change of shift. Afib on the monitor, HR in the 90-120s. Heparin running as per protocol, see MAR. 3 BMs today, stool softener held. NPO at midnight. No complaints from pt at this time, call rao within reach.
[2025-01-03] MEDS: MELATONIN 5 MG PO (22:38)
[2025-01-03 23:13] LABS: APTT 81.8 Sec (23.4-35.0)
[2025-01-04] VITALS (15 sets, daily range): BP systolic 14–149; BP diastolic 60–121; PULSE 102; O2SAT 96; BMI 32.0
[2025-01-04 03:55] LABS: Hematocrit 28.5 % (39.0-52.0); Hemoglobin 10.2 g/dL (13.0-18.0); Mean Corp Hgb Conc. 35.8 g/dL (33.0-37.0); Mean Corpuscular Hgb 31.7 pg (27.0-31.0); Mean Corpuscular Volume 88.5 fL (80.0-94.0); Platelet Count 221 10^3/uL (130-400); Red Blood Cell Count 3.22 10^6/uL (4.70-6.10); Red Cell Dist. Width 14.1 % (11.5-14.5)
[2025-01-04 04:21] LABS: Blood Urea Nitrogen 67 mg/dl (9-20); Calcium 9.1 mg/dl (8.4-10.2); Carbon Dioxide 26 mmol/L (22-30); Chloride 101 mmol/L (98-107); Estimated Creatinine Clearance 23 ml/min; Glucose 140 mg/dl (70-99); Potassium 3.6 mmol/L (3.5-5.1); Sodium 137 mmol/L (135-145); eGFR 28.46
--- NOTE | 2025-01-04 08:23 | W.PN.CARDCBS ---
Addendum entered and electronically signed by Huan Bain MD 01/04/25 12:54:
I saw and examined the patient.
The PHARMACY MESSENGER or PA's note was reviewed and I agree with the note.
Comment: General: Well developed, well nourished in NAD.
Neck: Supple, no JVD, HJR, carotids +2 B/L, no bruits bilaterally.
Heart: Non displaced PMI, irregular, no murmurs, No S3, S4, no rubs.
Lungs: Scattered rhonchi
Extremities: No clubbing, cyanosis or edema bilaterally.
Neuro: Grossly nonfocal, awake, alert and oriented x3.
Heart rate control remains suboptimal in A-fib. Will add diltiazem and attempt to control heart rate continue amiodarone loading at 20 mg p.o. 3 times daily which was started on January 01. Could consider adding digoxin but does have renal
insufficiency.
Will hold off on DAISHA as risk of esophageal injury is higher as DAISHA is a blind procedure.
Will also hold IV Lasix with increasing renal insufficiency as appears comfortable on room air
Discussed with primary service
Addendum entered and electronically signed by VIRGINIA Rich 01/04/25 12:50:
-will add Diltiazem 120 mg daily for better rate control of afib. HRs remain in 110s on current regimen of Toprol 100 mg bid and Amiodarone 200 mg tid.
-EGD today showed normal esophagus, multiple plaques in esophagus-biopsied, sm hiatal hernia. Diflucan being added for Carndida. Need to monitor QTc on this med with Amiodarone
-12 lead EKG ordered for now and daily.
-resume Eliquis 2.5 mg bid
Original Note:
Today's Communication / Plan
-
-EGD today to eval esophageal narrowing on DAISHA
-cont rate control afib
Impression / Plan
-
PCP: Dr. Wolfe
Sulfate Drier Machine Operator: Dr. BE Diaz
Impression:
Presented with SOB, weight gain 12/30/24
Acute on chronic HFpEF, proBNP 15,500
Atrial fibrillation with RVR
Paroxysmal atrial fibrillation
Chronic Eliquis anticoagulation
esophageal narrowing 01/01/2025 on DAISHA, unable to proceed with DAISHA
Hyponatremia
CAD
BMS to LCx 2011
Chronically occluded mid RCA by cath 01/14/2019
HTN
HLD
CKD 3b
Chronic anemia
GERD
h/o prostate cancer s/p XRT
Chronic suprapubic catheter
DNR code status
Echo 02/07/2023: EF 65%, mod cLVH, grade I DD, mild MR, trace TR
Echo 05/01/2024: EF 55%, mild cLVH, mild with peak/mean gradients 16/8 mmHg, mild TR, estimated PAP 30-35 mmHg
Echo 12/31/2024: TDS: EF 55 to 60%. Mild concentric LVH. Aortic sclerosis without stenosis. Mild TR with PAP 35 mmHg
Plan:
Presented 12/30/2024 with shortness of breath, weight gain and was found to be in acute heart failure with preserved ejection fraction. Patient also noted to have atrial fibrillation with rapid ventricular response
-Acute heart failure with preserved ejection fraction:
proBNP 15,500 on admission
Echo stable with preserved ejection fraction 55 to 60% this admission
Appears mildly volume overloaded on exam,crackles at bases, LE edema resolved
wt down 1 lb overnight but generally trending up/unchanged since admission. admit wt 184 on bedscale, current wt 185 standing scale. continue IV lasix and hopefully transition to PO in the next 24-48hrs
BUN/creat trending up, creat 2.2 today 01/04/2025, up from 1.8 on admit
Follow daily weights, renal function and electrolytes closely
Avoid MRA due to CKD
Not ideal candidate for SGLT-2 with chronic suprapubic catheter in place
-A-fib with rapid ventricular response on admission:
Likely exacerbating acute heart failure
Attempted DAISHA/DCCV but unable to pass the probe 01/01/25 and patient now admitting to dysphagia. GI has been consulted and getting EGD today
Rate control strategy with metoprolol and amiodarone. Currently on Toprol 100 mg twice daily and amiodarone 200 mg 3 times daily
Cont heparin gtt as requested by GI, transition back to Eliquis 2.5 mg BID (age 84, Cre 2.2) when no further procedures planned
-Esophageal narrowing
-EGD today per GI
-MRI of chest, no mediastinal mass unremarkable MR appearance of the esophagus.
X-ray of esophagus 01/01 had shown small focal area of either extrinsic compression on the right side of the mid thoracic esophagus versus right sided intramural esophageal lesion
Plan was discussed with patient's daughter over the phone over the weekend
HPI: Patient presented to cardiology office today with complaints of shortness of breath, wheezing, cough, worsening lower extremity edema, weight gain as well as palpitations and tachycardia. EKG in office showed atrial fibrillation with rapid
ventricular response and was noted to be hypotensive with blood pressure of 102/56. He reportedly had shingles vaccination on 12/20, and afterwards developed noted symptoms as well as swollen face. Daughter had called the office on 12/28 due to
symptoms and was initially instructed to take patient to the ER, however they declined and he was recommended 2 extra doses of torsemide 20 mg, with last increased dose yesterday. Despite some weight loss, he had worsening shortness of breath. He
was brought to ER from [facility] office. Reportedly he has not been taking his Eliquis twice daily due to prior hematuria.
Progress Note - Sulfate Drier Machine Operator
Subjective
Date of Service: January 04, 2025
for EGD today
remains in afib, HRs 100s-120s
Objective
Labs:
01/04/25 03:08
01/04/25 03:08
Labs
Hgb 10.2 g/dL (13.0-18.0) L 01/04/25 03:08
Hct 28.5 % (39.0-52.0) L 01/04/25 03:08
Plt Count 221 10^3/uL (130-400) D 01/04/25 03:08
APTT 81.8 Sec (23.4-35.0) H 01/03/25 22:52
Sodium 137 mmol/L (135-145) 01/04/25 03:08
Potassium 3.6 mmol/L (3.5-5.1) 01/04/25 03:08
BUN 67 mg/dl (9-20) H 01/04/25 03:08
Creatinine 2.2 mg/dL (0.7-1.3) H 01/04/25 03:08
Glucose 140 mg/dl (70-99) H 01/04/25 03:08
Vital Signs and I&O:
Vital Signs
Temp Pulse Resp BP Pulse Ox
97.6 F 111 18 97/64 99
01/04/25 07:26 01/03/25 22:38 01/04/25 07:26 01/03/25 22:38 01/04/25 07:26
Vital Signs
Temp Pulse Resp BP Pulse Ox
97.6 F 111 18 97/64 99
01/04/25 07:26 01/03/25 22:38 01/04/25 07:26 01/03/25 22:38 01/04/25 07:26
Intake & Output
01/02/25 01/03/25 01/04/25 01/05/25
06:59 06:59 06:59 06:59
Intake Total 250 / 250
Output Total 1800 / 1800 2200 / 2200 2700 / 2700 1375 / 1375
Balance -1550 / -1550 -2200 / -2200 -2700 / -2700 -1375 / -1375
Physical Exam
Physical Exam
GEN: No distress, awake, Ox3
HEENT: supple, anicteric, mmm
LUNGS: decreased at bases with faint crackles
CV: irreg, irreg S1/S2
ABD: soft, BS+, NT/ND
EXT: No edema, compression stocking on
NEURO: Gross non-focal
SKIN: ecchymosis B/L arms
[2025-01-04] MEDS: PACERONE 200 MG PO ×3 (08:43→22:44)
[2025-01-04] MEDS: FEOSOL 325 MG PO (08:45)
[2025-01-04] MEDS: ISORDIL 10 MG PO ×2 (08:45→20:17)
[2025-01-04] MEDS: VITAMIN B-12 1000 MCG PO (08:46)
[2025-01-04] MEDS: PROTONIX 40 MG PO (08:46)
[2025-01-04] MEDS: TOPROL XL 100 MG PO ×2 (08:46→20:18)
[2025-01-04] MEDS: VITAMIN D3 (cholecalciferol) 50 MCG PO (08:46)
[2025-01-04] MEDS: LASIX 80 MG IV (08:46)
[2025-01-04] MEDS: SENOKOT-S PO ×2 (08:47→20:16)
--- NOTE | 2025-01-04 10:53 | W.PN.UPDATE ---
Addendum entered and electronically signed by Ari Garner MD 01/04/25 12:23:
updated daughter
Original Note:
Update Note
Progress Note Update
D/w radiology
Could be extrinsic compression from left atrium of heart which is what I saw as well
If needed can switch fluconazole to nystatin
d/w cards, hospitalist and left VM for daughter
[2025-01-04] MEDS: DIFLUCAN 100 MG PO (11:50)
--- NOTE | 2025-01-04 11:51 | W.PN.HOSP.TC ---
Addendum entered and electronically signed by Nathalia Mccray MD 01/04/25 11:58:
Endoscopy-normal esophagus. Multiple plaques in the upper third of the esophagus biopsied. Small hiatal hernia. Nodular mucosa in the entire stomach biopsied. Normal duodenum biopsied. Duodenal lipoma biopsied.
Started on Diflucan for treatment of Stephany
With amiodarone need to be careful with QTC
Original Note:
Today's Communication/Plan
-
A-fib controlled strategy-defer to cardiology
Nephrology evaluation with CKD and need for diuresis
Stop heparin drip and restart Eliquis
Assessment / Plan
Assessment / Plan
84-year-old much seen cardiology office today with shortness of breath cough and lower extremity swelling and weight gain. He also had some palpitations. ECG in cardiology office showed A-fib with RVR and was sent to the ER. Patient had shingles
vaccine on 413 and had edema of the face was instructed to go to ER however took extra doses of torsemide. He lost some weight but still had shortness of breath. Because of intermittent hematuria he has been taking Eliquis only once a day and not
twice a day.
Chest x-ray reviewed by me-cardiomegaly fluid overload
EKG reviewed by me-A-fib with rate of 138, left axis deviation, nonspecific ST-T changes
Used daughter as interpretor per pt preference
CVS: S1-S2 irregular and tachycardic
Conjunctival hemorrhage on the left
Chest: rales B/L
Abdomen: Soft, NT
Extremities: B/L edema better
ELECTRICAL LABORATORY TECHNICIAN: Non focal exam
# Acute on chronic HFpEF
A-fib with RVR
Weight
Torsemide changed to Lasix 80 IV BID
Weight slightly better today
Cardizem as needed to keep heart rate under control
Daily weights intake output charting,2 gram sodium diet
Troponin negative
CHF education
Likely rapid heart rate is causing problems with fluid retention
Heart rate control
DAISHA cardioversion could not be accomplished because of esophageal narrowing
Amiodarone started for chemical cardioversion and rate control
Stop heparin drip and restart Eliquis
Patient and family asking if DAISHA cardioversion can be done again as patient has symptoms of palpitations
# Esophageal narrowing 01/01/25-DAISHA - could not pass the scope because of esophageal narrowing
X-ray shows thoracic esophagus within upper limits of normal. Small focal area of either extrinsic impression mass versus other process upon the right side of the mid thoracic esophagus versus right-sided intraluminal esophageal lesion with slight
deviation of the trachea to the left.
MRI-no suspicious mediastinal mass. Unremarkable MR appearance of the esophagus. Small left and small to moderate right pleural effusion.
# Right renal mass suspicious for neoplasm-outpatient workup
# Coronary disease with history of bare-metal stent stent to left circumflex
Chronically occluded RCA by catheter 2018
Continue atorvastatin, beta-allison, Eliquis
# Hypertension-on amlodipine, metoprolol as outpatient-currently on metoprolol and cardizem
# Hyperlipidemia/atherosclerosis-continue statin
# MARIE on CKD stage III-nephrology evaluation
# Chronic anemia-likely secondary to chronic disease. Gets Procrit injections as outpatient. Iron studies adequate
# Chronic vertigo
# History of DVT
# GERD/hiatal hernia- PPI
# DJD/spinal stenosis
# Diverticulosis
# Positive MRSA screen
# History of prostate cancer with radiation treatment in the past/chronic suprapubic catheter
# DNR per discussion with patient's daughter at bedside
Discussed with cardiology
Discussed with GI
D/W Daughter and updated on the phone
D/W RN
Anticipated Discharge: 24 - 48 hours
Subjective/Interval History
-
Date of Service: January 04, 2025
Objective Data
-
Labs:
Laboratory Results
01/04/25
03:08
WBC 9.0
Hgb 10.2 L
Hct 28.5 L
Plt Count 221 D
Sodium 137
Potassium 3.6
Chloride 101
Carbon Dioxide 26
BUN 67 H
Creatinine 2.2 H
Glucose 140 H
Calcium 9.1
Vital Signs:
Vital Signs
Temp Pulse Resp BP Pulse Ox
97.7 F 115 16 127/92 99
01/04/25 11:22 01/04/25 11:19 01/04/25 11:22 01/04/25 11:19 01/04/25 11:22
I&O
01/03/25 01/04/25 01/05/25
06:59 06:59 06:59
Output Total 2200 / 2200 2700 / 2700 2124 / 2124
Balance -2200 / -2200 -2700 / -2700 -2124 / -2124
[2025-01-04] MEDS: ELIQUIS 2.5 MG PO ×2 (13:49→20:17)
[2025-01-04] MEDS: CARDIZEM CD 120 MG PO (13:50)
--- NOTE | 2025-01-04 14:48 | CM ---
Reviewed chart. Met with Mr. Reese and spoke with his daughter via phone to review discharge plans. We reviewed [facility]. He is agreeble to [facility] with [facility]. Prior to admission he resides with his spouse in a first
floor condo with nine steps to enter. Prior to admission he ambulates with a walker or single point cane and he is independent with a walker and single point cane. 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
Medical work-up in progress. The discharge plan is to return home with his spouse and [facility] with [facility] when medically stable.
--- NOTE | 2025-01-04 15:07 | W.CON.NEPH ---
Consultation
-
Date/Time Consultation Requested: 01/04/25 9am
Date/Time Consultation Performed: 01/04/25 3pm
Requesting Provider: Dr. Mccray
Performing Provider: Dr Lopez
Reason for Consultation: MARIE
Medical History
-
Chief Complaint: MARIE
History of Present Illness:
Mr. Franklin is an 83yo with CAD w/LCx stenting, chronic HFpEF on po torsemide chronically, pAfib on elquis OAT, HTN controlled on a multidrug regimen, DLD, CKD3b (bl Cr around 1.5), GERD, and prostate cancer (s/p radiation and chronic
suprapubic catheter), anemia (on procrit as outpatient) who presented to the hospital for SOB and worsening edema. He was struggling with insomnia due to SOB. He had tried increasing torsemide to 20 mg twice daily but this had not achieved adequate
response. He was sent to the hospital by cardiology. He was given intravenous Lasix and his creatinine had began to rise now up to 2.2 representing acute kidney injury.
Nephrology is consulted for slightly worsening kidney function. Cr baseline appears to be around 1.4-1.7, elevated to 2.2 in the setting of diuresis. He had followed with Dr. Montgomery as an outpatient (prior to dissolution of the practice).
Past Medical History
History of prostate cancer (on tamsulosin)
DVT
Chronic kidney disease stage IIIb
Diastolic heart failure
Coronary artery disease
Hypertension ( on amlodipine, hydralazine)
GI bleed
Ileus
Gallstones
Diverticulosis
Hiatal hernia
H. pylori
Right renal mass followed by [facility]
Past Medical History: Other
Past Surgical History: Other (Cardiac stent Hernia repair Nasal polypectomy Appendectomy)
Social History
Tobacco: Non-Smoker
Alcohol: None
Drug: None
Personal:
Living: With Family
Family History
Family History: Not Pertinent
Allergies / Home Medications
Allergy/AdvReac Type Severity Reaction Status Date / Time
No Known Allergies Allergy Verified 12/30/24 16:18
�Medication �Instructions �Recorded �Confirmed �Type
amlodipine 5 mg tablet 2.5 mg PO DAILY Blood Pressure 04/30/24 12/30/24 History
apixaban 2.5 mg tablet (Eliquis) 2.5 mg PO BID Blood Clot 04/30/24 12/30/24 History
Prevention/Tx
cholecalciferol (vitamin D3) 25 50 mcg PO DAILY Supplement 04/30/24 12/30/24 History
mcg (1,000 unit) capsule (Vitamin
D3)
cranberry extract 157.5 1 cap PO QPM Supplement ##0 04/30/24 12/30/24 History
nw-t-pblxmcd 500 mg capsule
cyanocobalamin (vitamin B-12) 1,000 mcg PO DAILY Supplement 04/30/24 12/30/24 History
1,000 mcg tablet
diclofenac sodium 1 % topical gel 1 ea topical DAILYPRN PRN all 04/30/24 12/30/24 History
joints
epoetin gila 40,000 unit/mL 40,000 unit SC Q3W RED BLOOD CELLS 04/30/24 12/30/24 History
injection solution (Procrit)
fluticasone propionate 50 2 spray intranasal BID 04/30/24 12/30/24 History
mcg/actuation nasal Lung/Breathing Issues
spray,suspension
ipratropium bromide 17 2 puff inhalation R QPM 04/30/24 12/30/24 History
mcg/actuation HFA aerosol inhaler Lung/Breathing Issues
(Atrovent HFA)
ketoconazole 2 % topical cream 1 applic topical BIDPRN PRN b/l 04/30/24 12/30/24 History
feet
melatonin 5 mg tablet 5 mg PO HS Sleep 04/30/24 12/30/24 History
pantoprazole 40 mg tablet,delayed 40 mg PO DAILY Gastrointestinal 04/30/24 12/30/24 History
release Issue
phenolphthalein-docusate sodium 90 1 cap PO DAILYPRN PRN constiaption 04/30/24 12/30/24 History
mg-83 mg capsule ##0
polyethylene glycol 3350 17 gram 17 g PO DAILYPRN PRN constipation 04/30/24 12/30/24 History
oral powder packet (Miralax)
propylene glycol-glycerin 0.6 1 drp ophthalmic (eye) BIDPRN PRN 04/30/24 12/30/24 History
%-0.6 % eye drops in a dropperette both eyes
(Soothe Lubricant)
atorvastatin 10 mg tablet 10 mg PO QPM #30 tabs 05/11/24 12/30/24 Rx
ferrous sulfate 325 mg (65 mg 325 mg PO DAILY #30 tabs 05/11/24 12/30/24 Rx
iron) tablet (FeroSul)
isosorbide dinitrate 10 mg tablet 10 mg PO BID #30 tabs 05/11/24 12/30/24 Rx
metoprolol succinate 50 mg 50 mg PO BID #30 tabs 05/11/24 12/30/24 Rx
tablet,extended release 24 hr
sennosides 8.6 mg-docusate sodium 2 tab PO BID Constipation 12/30/24 12/30/24 History
50 mg tablet
torsemide 20 mg tablet 20 mg PO BID Fluid 12/30/24 12/30/24 History
Retention/Swelling
doxazosin 1 mg tablet 1 mg PO QPM Blood Pressure 12/31/24 12/30/24 History
Review of Systems
-
Shortness of breath, edema, weight gain. No chest pain
History Source: Family
All other systems: Negative unless noted
Physical Exam
Vital Signs
Vital Signs
Temp Pulse Resp BP Pulse Ox
97.7 F 103 16 111/60 99
01/04/25 11:22 01/04/25 13:50 01/04/25 11:22 01/04/25 13:50 01/04/25 11:22
Lab Results
WBC 9.0 10^3/uL (4.8-10.8) 01/04/25 03:08
RBC 3.22 10^6/uL (4.70-6.10) L 01/04/25 03:08
Hgb 10.2 g/dL (13.0-18.0) L 01/04/25 03:08
Hct 28.5 % (39.0-52.0) L 01/04/25 03:08
Plt Count 221 10^3/uL (130-400) D 01/04/25 03:08
Sodium 137 mmol/L (135-145) 01/04/25 03:08
Potassium 3.6 mmol/L (3.5-5.1) 01/04/25 03:08
Chloride 101 mmol/L (98-107) 01/04/25 03:08
Carbon Dioxide 26 mmol/L (22-30) 01/04/25 03:08
BUN 67 mg/dl (9-20) H 01/04/25 03:08
Creatinine 2.2 mg/dL (0.7-1.3) H 01/04/25 03:08
eGFR 28.46 01/04/25 03:08
Glucose 140 mg/dl (70-99) H 01/04/25 03:08
Calcium 9.1 mg/dl (8.4-10.2) 01/04/25 03:08
Zhv-B-Kxymhfmsnbu Pept 29933 pg/ml 12/30/24 16:24
Albumin 3.8 g/dl (3.5-5.0) 12/30/24 16:24
Laboratory Tests
05/11/24 12/30/24
04:15 16:24
Creatinine 2.2 H 1.8 H
Physical Exam
Patient is awake alert oriented and in no distress. Mood and affect were pleasant, insight and judgment were good. Pupils are equal round and reactive to light, extraocular movements are intact, sclera were anicteric. Hearing was normal, ears and
nose are intact. Oropharynx was clear. Neck was supple with trachea midline and no thyromegaly. Heart was regular rate and rhythm without rubs. Lower extremities with 3+ edema. Lungs were coarse to auscultation bilaterally and with normal
excursion. Abdomen was soft, nontender, with normal active bowel sounds, and no hepatosplenomegaly. Skin was without rash and with normal turgor.
Data Reviewed
-
Radiology: Image Personally Visualized and interpreted (Chest x-ray 12/30/2024 by my reading cardiomegaly, vascular prominence)
Medical Tests (Nuc Med, Echo etc): Image Personally Visualized and interpreted (EKG 01/04/2025 monitoring shows atrial fibrillation rapid ventricular rate left axis deviation anterior Q)
Labs: Labs Reviewed by me
Old Records: Reviewed
Assessment/Plan
-
Assessment:
MARIE
CKD 3B (bl Cr 1.4-1.7)
hyponatremia
CHF exacerbation
Anemia
pAFib
GERD
Candidiasis
Plan:
Follow BMP
he has previously stated that he would refuse dialysis if were needed. Daughter confirms this.
Received Lasix this morning, will hold this afternoon's dose.
Will determine Lasix needs tomorrow morning
He may be able to transition back to oral torsemide, possibly at 40 mg daily.
We could also consider his standard dose of torsemide at 20 mg daily with the addition of metolazone at 1.25 or 2.5 mg 3 days weekly
Given his cardiac issues, I would still except a creatinine less than 2.5 overall for him.
Cardioversion plans per cardiology
Discussed with daughter on phone
--- NOTE | 2025-01-04 15:12 | PTOTSP ---
Speech Therapy Evaluation:
Pt presents with mild oral impairments as characterized by prolonged mastication and bolus formation with preference to masticate on R. No overt s/sx of aspiration, however per chart, pt with dysphagia for years with foods > liquids as characterized
by belching and coughing. Esophagus XR with small focal area extrinsic mass vs other process upon R side of mid thoracic esophagus vs R intramural esophageal lesion with slight deviation of trachea to L. Per MD, 'could be extrinsic compression from
left atrium of heart.' Upper Endoscopy with normal esophagus. Chest MRI with pleural effusions. WBC WNL. Pt on room air. No hx of PNA.
Recommend:
1. Continue current diet of regular solids and thin liquids with softer selections per pt preference
2. Medications as tolerated
3. Supervision with PO intake
4. Strict aspiration and reflux precautions
5. FITNESS SALES CONSULTANT to follow to monitor tolerance of diet and to determine need for future diet modifications (pt's daughter reported preference to remain on regular solids)
[2025-01-04] MEDS: LIPITOR 10 MG PO (17:05)
--- NOTE | 2025-01-04 18:45 | PTCARENOTE ---
~8492-3122: Pt AOx4, Afib 90s-120s, RA. Pt denies pain at this time. Compression stocking applied per patient request. 2/2 palpable pulses. suprepubic catheter draining clear yellow urine. NPO at this time for EGD today. Pt Ax1 with walker OOB to
chair. Oral care completed independently. All needs met at this time, call rao within reach. Report given to GI lab around 919.
~0940: Patient to GI lab via sretcher in stable condition.
~1100: received report from GI lab.
~1115: Patient transported back to unit via stretcher. Weight obtained. Patient in stable condition, VSS at this time. All needs met, call rao within reach.
~9849-0308: EKG obtained per order.
~1400: patient worked with PT, walked in halls with walker.
~0493-1142: Patient OOB in chair at this time, tolerating well. VSS. pt does not c/o pain at this time. All needs met, call rao within reach.
~[id number]: Handoff report given to nightshift RN.
[2025-01-04] MEDS: ATROVENT NEBULES 0.5 MG INH (19:52)
[2025-01-04] MEDS: MELATONIN 5 MG PO (22:44)
--- NOTE | 2025-01-04 23:50 | PTCARENOTE ---
Received patient at change of shift. Afib on the monitor, HR in the 90s. Ambulatory around room with walker and 1 assist. No complaints from pt at this time, call rao within reach.
[2025-01-05] VITALS (10 sets, daily range): BP systolic 96–143; BP diastolic 57–114; BMI 32.4
[2025-01-05 06:17] LABS: Blood Urea Nitrogen 57 mg/dl (9-20); Calcium 9.4 mg/dl (8.4-10.2); Carbon Dioxide 27 mmol/L (22-30); Chloride 102 mmol/L (98-107); Estimated Creatinine Clearance 23 ml/min; Glucose 136 mg/dl (70-99); Potassium 3.9 mmol/L (3.5-5.1); Sodium 138 mmol/L (135-145); eGFR 28.46
--- NOTE | 2025-01-05 08:06 | W.PN.CARDCBS ---
Addendum entered and electronically signed by Thomas Smith MD 01/05/25 10:45:
I saw and examined the patient.
The Ripsawyer's note was reviewed and I agree with the note.
Comment: Briefly, 84-year-old man past medical history of heart failure with preserved ejection fraction and paroxysmal atrial fibrillation presenting in acute decompensated heart failure found to have atrial fibrillation with rapid ventricular
response.
Remains in atrial fibrillation with rates relatively well-controlled
There was an attempt at DAIHSA cardioversion last week but DAISHA probe was unable to be passed through the esophagus.
Would recommend rate control strategy for now with plan to undergo direct-current cardioversion as an outpatient after he has been reliably anticoagulated for 3 to 4 weeks.
Continue Toprol, Cardizem and amiodarone as well as reduced dose Eliquis
In regards to his volume status, appears euvolemic on exam
Appreciate nephrology input, will defer further diuretic dosing to them
Patient's daughter was updated over the phone, all questions answered
We will sign off, please recall as needed
Outpatient follow-up has been arranged
Original Note:
Today's Communication / Plan
-
Cont rate control efforts with Toprol XL 100 mg BID, Cardizem CD 120 mg daily and amiodarone 200 mg daily
Recheck ECG in AM
Cont Eliquis 2.5 mg BID
Lasix IV now on hold, Nephrology following, was on torsemide 20 mg BID as an outpatient
Weight is DOWN 5 lbs today, not up which patient thinks
Impression / Plan
-
PCP: Dr. Wolfe
Targeting Acquisition Officer: Dr. BE Diaz
Impression:
Presented with SOB, weight gain 12/30/24
Acute on chronic HFpEF, proBNP 15,500
Atrial fibrillation with RVR
Paroxysmal atrial fibrillation
Chronic Eliquis anticoagulation
Esophageal narrowing 01/01/2025 on DAISHA, unable to proceed with DAISHA
Hyponatremia
CAD
BMS to LCx 2011
Chronically occluded mid RCA by cath 01/14/2019
HTN
HLD
CKD 3b
Chronic anemia
GERD
h/o prostate cancer s/p XRT
Chronic suprapubic catheter
DNR code status
Echo 02/07/2023: EF 65%, mod cLVH, grade I DD, mild MR, trace TR
Echo 05/01/2024: EF 55%, mild cLVH, mild with peak/mean gradients 16/8 mmHg, mild TR, estimated PAP 30-35 mmHg
Echo 12/31/2024: TDS: EF 55 to 60%. Mild concentric LVH. Aortic sclerosis without stenosis. Mild TR with PAP 35 mmHg
Plan:
-GI notes reviewed. Patient had upper endoscopy 01/04/25 and patient with multiple plaques in the upper 1/2 of the esophagus that were biopsied, small hiatal hernia and there was narrowing at 30 cm but GI provider saw movement and suspect
vessel/heart which on MRI there was no mass that was causing extrinsic compression. Patient was difficult intubation into esophagus due to anatomy this may be the cause of difficulty previously for DAISHA. Patient with 'no contraindication for DAISHA,'
per GI, but will defer from cardiac standpoint as DAISHA is a blind procedure and risk of esophageal injury is high.
-Current plan is for 3 additional weeks of OAC and then perform elective outpatient CV.
-Patient with known paroxysmal Afib and was in Afib with RVR 12/30/24 during cardiology office visit.
-Rate control efforts with increased dose of Toprol XL 100 mg BID, was taking 50 mg BID prior to admission
-Initially on Cardizem gtt and now ordered Cardizem CD 120 mg daily
-Also new to amiodarone 200 mg TID and has received a 2.4 gram load as of 01/05/25.
-QTc 504 ms on ECG 01/05/25. Will reduce amiodarone to 200 mg BID 01/05/25. Potassium 3.9 and will supplement with KCl 40 meq x1 now ordered by me and check magnesium level, ordered by me.
-Cont Eliquis 2.5 mg BID (age 84, Cre 2.2). Patient was taking Eliquis daily instead of BID prior to admission
-Peak weight 186 lbs this admission and weight is down to 180 lbs on 01/05/25. Initially diuresed with Lasix IV, but then developed worsening MARIE. Lasix IV now stopped and Nephrology following. Cre stable at 2.2 on labs reviewed by me 01/05/25
-EF preserved on echo 12/31/24
-Toprol XL as noted above
-Will not LINDA/ARB/ARNI/aldosterone antagonist due to MARIE on CKD 3b
-Will not add SGLT-2 with chronic suprapubic catheter in place.
HPI: Patient presented to cardiology office today with complaints of shortness of breath, wheezing, cough, worsening lower extremity edema, weight gain as well as palpitations and tachycardia. EKG in office showed atrial fibrillation with rapid
ventricular response and was noted to be hypotensive with blood pressure of 102/56. He reportedly had shingles vaccination on 12/20, and afterwards developed noted symptoms as well as swollen face. Daughter had called the office on 12/28 due to
symptoms and was initially instructed to take patient to the ER, however they declined and he was recommended 2 extra doses of torsemide 20 mg, with last increased dose yesterday. Despite some weight loss, he had worsening shortness of breath. He
was brought to ER from [facility] office. Reportedly he has not been taking his Eliquis twice daily due to prior hematuria.
Progress Note - Targeting Acquisition Officer
Subjective
Date of Service: January 05, 2025
He thinks his weight is up, but he's actually down 5 lbs
Objective
Labs:
01/04/25 03:08
01/05/25 04:39
Labs
Hgb 10.2 g/dL (13.0-18.0) L 01/04/25 03:08
Hct 28.5 % (39.0-52.0) L 01/04/25 03:08
Plt Count 221 10^3/uL (130-400) D 01/04/25 03:08
APTT 81.8 Sec (23.4-35.0) H 01/03/25 22:52
Sodium 138 mmol/L (135-145) 01/05/25 04:39
Potassium 3.9 mmol/L (3.5-5.1) 01/05/25 04:39
BUN 57 mg/dl (9-20) H 01/05/25 04:39
Creatinine 2.2 mg/dL (0.7-1.3) H 01/05/25 04:39
Glucose 136 mg/dl (70-99) H 01/05/25 04:39
Vital Signs and I&O:
Vital Signs
Temp Pulse Resp BP Pulse Ox
98.1 F 88 16 126/88 97
01/05/25 04:29 01/05/25 04:29 01/05/25 04:29 01/04/25 22:44 01/05/25 04:29
Vital Signs
Temp Pulse Resp BP Pulse Ox
98.1 F 88 16 126/88 97
01/05/25 04:29 01/05/25 04:29 01/05/25 04:29 01/04/25 22:44 01/05/25 04:29
Intake & Output
01/03/25 01/04/25 01/05/25 01/06/25
06:59 06:59 06:59 06:59
Output Total 2200 / 2200 2700 / 2700 3525 / 3525
Balance -2200 / -2200 -2700 / -2700 -3525 / -3525
Physical Exam
Physical Exam
GEN: NAD. AAOx3
HEENT: EOMI, MMM
LUNGS: RA. No audible wheeze
CV: Afib on tele. Irreg irreg
ABD: ND
EXT: +1 B/L LE edema
NEURO: Gross non-focal
SKIN: No rash
[2025-01-05] MEDS: ISORDIL 10 MG PO ×2 (09:09→21:05)
[2025-01-05] MEDS: SENOKOT-S PO (09:10)
[2025-01-05] MEDS: DIFLUCAN 100 MG PO (09:10)
[2025-01-05] MEDS: TOPROL XL 100 MG PO (09:10)
[2025-01-05] MEDS: VITAMIN D3 (cholecalciferol) 50 MCG PO (09:10)
[2025-01-05] MEDS: PACERONE 200 MG PO ×2 (09:10→21:44)
[2025-01-05] MEDS: PROTONIX 40 MG PO (09:11)
[2025-01-05] MEDS: VITAMIN B-12 1000 MCG PO (09:11)
[2025-01-05] MEDS: CARDIZEM CD 120 MG PO (09:11)
[2025-01-05] MEDS: ELIQUIS 2.5 MG PO ×2 (09:11→21:03)
[2025-01-05] MEDS: FEOSOL 325 MG PO (09:12)
--- NOTE | 2025-01-05 09:52 | W.PN.HOSP.TC ---
Today's Communication/Plan
-
Discharge when heart rate is better controlled
Assessment / Plan
Assessment / Plan
84-year-old much seen cardiology office today with shortness of breath cough and lower extremity swelling and weight gain. He also had some palpitations. ECG in cardiology office showed A-fib with RVR and was sent to the ER. Patient had shingles
vaccine on 413 and had edema of the face was instructed to go to ER however took extra doses of torsemide. He lost some weight but still had shortness of breath. Because of intermittent hematuria he has been taking Eliquis only once a day and not
twice a day.
Chest x-ray reviewed by me-cardiomegaly fluid overload
EKG reviewed by me-A-fib with rate of 138, left axis deviation, nonspecific ST-T changes
Used daughter as interpretor per pt preference
CVS: S1-S2 irregular
Chest: rales B/L better
Abdomen: Soft, NT
Extremities: B/L edema better
CARGO SERVICE AGENT: Non focal exam
# Acute on chronic HFpEF
A-fib with RVR
Troponin negative
Likely rapid heart rate is causing problems with fluid retention and CHF
Weight - not done today
Status post IV Lasix. May changed to torsemide today
Continue Cardizem 360 mg daily
Daily weights ,intake output charting,2 gram sodium diet
CHF education
Heart rate control
DAISHA cardioversion could not be accomplished because of esophageal narrowing, cardiology not planning for another DAISHA cardioversion
Amiodarone started for chemical cardioversion and rate control
Continue Eliquis
# Esophageal narrowing 01/01/25-DAISHA - could not pass the scope because of esophageal narrowing
X-ray shows thoracic esophagus within upper limits of normal. Small focal area of either extrinsic impression mass versus other process upon the right side of the mid thoracic esophagus versus right-sided intraluminal esophageal lesion with slight
deviation of the trachea to the left.
MRI-no suspicious mediastinal mass. Unremarkable MR appearance of the esophagus. Small left and small to moderate right pleural effusion.
# Right renal mass suspicious for neoplasm-discussed with daughter. Patient is being followed at [facility] for this. Patient and family are aware
# Coronary disease with history of bare-metal stent stent to left circumflex
Chronically occluded RCA by catheter 2018
Continue atorvastatin, beta-allison, Eliquis
# Hypertension-on amlodipine, metoprolol as outpatient-currently on metoprolol and Cardizem
# Hyperlipidemia/atherosclerosis-continue statin
# MARIE on CKD stage III-nephrology evaluation Appreciated
# Chronic anemia-likely secondary to chronic disease. Gets Procrit injections as outpatient. Got 1 dose here during this admission. Iron studies adequate
# Chronic vertigo
# History of DVT
# GERD/hiatal hernia- PPI
# DJD/spinal stenosis
# Diverticulosis
# Positive MRSA screen
# History of prostate cancer with radiation treatment in the past/chronic suprapubic catheter
# DNR per discussion with patient's daughter at bedside
Discussed with cardiology
D/W Daughter and updated on the phone
D/W RN at bedside
Anticipated Discharge: 24 - 48 hours
Subjective/Interval History
-
Date of Service: January 05, 2025
Objective Data
-
Labs:
Laboratory Results
01/05/25
04:39
Sodium 138
Potassium 3.9
Chloride 102
Carbon Dioxide 27
BUN 57 H
Creatinine 2.2 H
Glucose 136 H
Calcium 9.4
Vital Signs:
Vital Signs
Temp Pulse Resp BP Pulse Ox
98 F 88 20 124/87 98
01/05/25 09:08 01/05/25 09:11 01/05/25 09:08 01/05/25 09:11 01/05/25 09:08
I&O
01/04/25 01/05/25 01/06/25
06:59 06:59 06:59
Output Total 2700 / 2700 3525 / 3525
Balance -2700 / -2700 -3525 / -3525
[2025-01-05 10:45] LABS: Magnesium 2.2 mg/dl (1.6-2.3)
[2025-01-05] MEDS: KCL 40 MEQ PO (11:07)
--- NOTE | 2025-01-05 12:01 | W.PN.NEPH.PH ---
Today's Communication / Plan
-
diurese
Assessment/Plan
-
Assessment:
MARIE
CKD 3B (bl Cr 1.4-1.7)
hyponatremia
CHF exacerbation
Anemia
pAFib
GERD
Candidiasis
Plan:
Follow BMP
he has previously stated that he would refuse dialysis if were needed. Daughter has confirmed this.
restart oral torsemide, at 40 mg BID
We could also consider his standard dose of torsemide at 20 mg BID with the addition of metolazone at 1.25 or 2.5 mg 3 days weekly
Given his cardiac issues, I would still except a creatinine less than 2.5 overall for him.
-
-
Date of Service: January 05, 2025
CC / HPI / ROS
-
Chief Complaint:
MARIE
History of Present Illness:
MARIE/Cr stable 2.2
weights down
diuresing with IV lasix for decompensated HF
BP stable
Review of Systems:
no CP/SOB
Labs
-
Labs:
WBC 9.0 10^3/uL (4.8-10.8) 01/04/25 03:08
RBC 3.22 10^6/uL (4.70-6.10) L 01/04/25 03:08
Hgb 10.2 g/dL (13.0-18.0) L 01/04/25 03:08
Hct 28.5 % (39.0-52.0) L 01/04/25 03:08
Plt Count 221 10^3/uL (130-400) D 01/04/25 03:08
Sodium 138 mmol/L (135-145) 01/05/25 04:39
Potassium 3.9 mmol/L (3.5-5.1) 01/05/25 04:39
Chloride 102 mmol/L (98-107) 01/05/25 04:39
Carbon Dioxide 27 mmol/L (22-30) 01/05/25 04:39
BUN 57 mg/dl (9-20) H 01/05/25 04:39
Creatinine 2.2 mg/dL (0.7-1.3) H 01/05/25 04:39
eGFR 28.46 01/05/25 04:39
Glucose 136 mg/dl (70-99) H 01/05/25 04:39
Calcium 9.4 mg/dl (8.4-10.2) 01/05/25 04:39
Rom-R-Mwaukwkilih Pept 98577 pg/ml 12/30/24 16:24
Albumin 3.8 g/dl (3.5-5.0) 12/30/24 16:24
Physical Exam
-
Vital Signs:
Vital Signs
Temp Pulse Resp BP Pulse Ox
98 F 88 20 124/87 98
01/05/25 09:08 01/05/25 09:11 01/05/25 09:08 01/05/25 09:11 01/05/25 09:08
Cardiovascular:: Regular rate and rhythm
Respiratory:: Bilateral: Coarse
Lung Excursion:: Normal
Abdomen:: Nontender and Soft
Bowel Sounds:: Normal
Extremity Edema:: +2: Bilateral:
--- NOTE | 2025-01-05 14:41 | CM ---
Reviewed chart. Telephone call to [facility] Intake to check on status of referral. Resent the referral via fax. [facility] can accept him for VNA services when ready for discharge. Prior to admission he resides with his spouse in a first floor
condo with nine steps to enter. Curreently he ambulated 200 feet with a rolling walker and supervision . He was getting [employer] services from 10:00 a.m to 9:00 p.m seven days a week. He has a prescription plan. Medical work-up in progress. The
discharge plan is to return home with his spouse and [facility] Services when medically stable.
[2025-01-05] MEDS: DEMADEX 40 MG PO (17:47)
[2025-01-05] MEDS: LIPITOR 10 MG PO (17:47)
--- NOTE | 2025-01-05 18:46 | PTCARENOTE ---
~6171-2259: handoff report received from nightshift RN. Pt AOx4, Afib on tele 50s-100., 98% RA. pt denies pain at this time. K+ repleated. Around 1050 it appeared pt may have converted to SB 50s, however when EKG was obtained, appears pt went back
into AFib, provider awre. All needs met at this time, call rao within reach.
~3273-3408: Pt OOB in chair. Pt denies pain at this time. Afib/Aflutter 50s. All needs met at this time, call rao within reach.
~4666-4952: Pt asleep, HR Afib/Aflutter 39-41bpm, Keturah Villalpando made aware, no new orders at this time.
~6183-6312: Family at bedside. Pt deneies pain at this time, VSS. Handoff report given to nightshift RN.
[2025-01-05] MEDS: ATROVENT NEBULES 0.5 MG INH (19:34)
[2025-01-05] MEDS: SENOKOT-S 2 TABLET PO (21:05)
[2025-01-05] MEDS: TOPROL XL PO (21:28)
[2025-01-05] MEDS: TOPROL XL 50 MG PO (22:49)
[2025-01-05] MEDS: MELATONIN 5 MG PO (22:49)
--- NOTE | 2025-01-05 23:55 | PTCARENOTE ---
EKG completed at change of shift as tele showing questionable SR with PAC's/bigeminy in the 60's, versus second degree HB?. Unable to capture as pt. flipped out of rhythm as soon as attached to EKG machine, EKG reading 'undetermined rhythm'
(appears A-fib) in the 70's. Dr. Fair notified, tele strip and EKG images tiger texted to him. Orders obtained to give amio as ordered but decrease tonight's Toprol to 50 mg. Doses given 1 hour apart (instructed to wait until SBP >100 for
Toprol as systolic running in the 90's, asymptomatic). BP increased to 129/63, Afib 60's-80's on tele - dose given. Otherwise pt. assist x 1 with RW, oriented and pleasant. Diuresing large amounts yellow urine via suprapubic catheter. OOB in chair
most of evening. Currently sleeping, in A-fib 60's-70's.
[2025-01-06] VITALS (9 sets, daily range): BP systolic 109–136; BP diastolic 55–90; PULSE 69; O2SAT 98; BMI 32.0
[2025-01-06 04:58] LABS: Hematocrit 29.5 % (39.0-52.0); Hemoglobin 10.5 g/dL (13.0-18.0); Mean Corp Hgb Conc. 35.6 g/dL (33.0-37.0); Mean Corpuscular Hgb 32.3 pg (27.0-31.0); Mean Corpuscular Volume 90.8 fL (80.0-94.0); Mean Platelet Volume 9.1 fL (7.4-10.4); Platelet Count 228 10^3/uL (130-400); Red Blood Cell Count 3.25 10^6/uL (4.70-6.10); Red Cell Dist. Width 14.3 % (11.5-14.5); White Blood Cell Count 7.9 10^3/uL (4.8-10.8)
[2025-01-06 05:47] LABS: Blood Urea Nitrogen 51 mg/dl (9-20); Calcium 9.5 mg/dl (8.4-10.2); Carbon Dioxide 26 mmol/L (22-30); Chloride 102 mmol/L (98-107); Estimated Creatinine Clearance 25 ml/min; Glucose 137 mg/dl (70-99); Potassium 4.1 mmol/L (3.5-5.1); Sodium 138 mmol/L (135-145)
[2025-01-06] MEDS: CARDIZEM CD PO (08:14)
[2025-01-06] MEDS: PACERONE 200 MG PO (08:16)
[2025-01-06] MEDS: SENOKOT-S PO (08:16)
[2025-01-06] MEDS: TOPROL XL 100 MG PO (08:16)
[2025-01-06] MEDS: VITAMIN D3 (cholecalciferol) 50 MCG PO (08:16)
[2025-01-06] MEDS: ELIQUIS 2.5 MG PO (08:16)
[2025-01-06] MEDS: FEOSOL 325 MG PO (08:16)
[2025-01-06] MEDS: ISORDIL 10 MG PO (08:17)
[2025-01-06] MEDS: DIFLUCAN 100 MG PO (08:17)
[2025-01-06] MEDS: PROTONIX 40 MG PO (08:17)
[2025-01-06] MEDS: VITAMIN B-12 1000 MCG PO (08:17)
--- NOTE | 2025-01-06 08:36 | W.PN.NEPH.PH ---
Today's Communication / Plan
-
Maintain diuresis
Follow BMP
Assessment/Plan
-
Assessment:
MARIE
CKD 3B (bl Cr 1.4-1.7)
hyponatremia
CHF exacerbation
Anemia
pAFib
GERD
Candidiasis
Plan:
Follow BMP, creatinine stable at 2, non oliguric via supra pubic cathter 2700cc,weights down
he has previously stated that he would refuse dialysis if were needed. Daughter has confirmed this.
Maintain oral torsemide, at 40 mg BID
We could also consider his standard dose of torsemide at 20 mg BID with the addition of metolazone at 1.25 or 2.5 mg 3 days weekly
Given his cardiac issues, I would still except a creatinine less than 2.5 overall for him.
-
-
Date of Service: January 06, 2025
CC / HPI / ROS
-
Chief Complaint:
MARIE
History of Present Illness:
MARIE/Cr stable 2
weights down
diuresing with oral for decompensated HF
BP stable
Review of Systems:
no CP/SOB
Weights down
Nonoliguric
Labs
-
Labs:
WBC 7.9 10^3/uL (4.8-10.8) 01/06/25 04:33
RBC 3.25 10^6/uL (4.70-6.10) L 01/06/25 04:33
Hgb 10.5 g/dL (13.0-18.0) L 01/06/25 04:33
Hct 29.5 % (39.0-52.0) L 01/06/25 04:33
Plt Count 228 10^3/uL (130-400) 01/06/25 04:33
Sodium 138 mmol/L (135-145) 01/06/25 04:33
Potassium 4.1 mmol/L (3.5-5.1) 01/06/25 04:33
Chloride 102 mmol/L (98-107) 01/06/25 04:33
Carbon Dioxide 26 mmol/L (22-30) 01/06/25 04:33
BUN 51 mg/dl (9-20) H 01/06/25 04:33
Creatinine 2.0 mg/dL (0.7-1.3) H 01/06/25 04:33
eGFR 31.90 01/06/25 04:33
Glucose 137 mg/dl (70-99) H 01/06/25 04:33
Calcium 9.5 mg/dl (8.4-10.2) 01/06/25 04:33
Vwn-Y-Acibcmnubvv Pept 57061 pg/ml 12/30/24 16:24
Albumin 3.8 g/dl (3.5-5.0) 12/30/24 16:24
Physical Exam
-
Vital Signs:
Vital Signs
Temp Pulse Resp BP Pulse Ox
98.3 F 81 16 119/59 97
01/06/25 07:34 01/06/25 08:16 01/06/25 07:34 01/06/25 08:16 01/06/25 07:34
Cardiovascular:: Regular rate and rhythm
Respiratory:: Bilateral: Coarse
Lung Excursion:: Normal
Abdomen:: Nontender and Soft
Bowel Sounds:: Normal
Extremity Edema:: +2: Bilateral:
--- NOTE | 2025-01-06 09:16 | W.PN.CARDCBS ---
Addendum entered and electronically signed by Thomas Smith MD 01/06/25 12:50:
I saw and examined the patient.
The Restrictive Preparation Operator's note was reviewed and I agree with the note.
Comment: Briefly, 84-year-old man past medical history of heart failure with preserved ejection fraction and paroxysmal atrial fibrillation presenting in acute decompensated heart failure found to have atrial fibrillation with rapid ventricular
response.
Remains in atrial fibrillation with rates currently well-controlled
There was an attempt at DAISHA cardioversion last week but DAISHA probe was unable to be passed through the esophagus.
Would recommend rate control strategy for now with plan to undergo direct-current cardioversion as an outpatient after he has been reliably anticoagulated for 3 to 4 weeks.
Continue Toprol and amiodarone as well as reduced dose Eliquis
In regards to his volume status, appears euvolemic on exam
Appreciate nephrology input, will defer further diuretic dosing to them
I discussed with patient's daughter over the phone, all questions answered
Stable for discharge from my perspective
Outpatient follow-up has been arranged
Original Note:
Today's Communication / Plan
-
Amiodarone 200 mg BID for 2 weeks and then once daily thereafter
Toprol XL 50 mg BID
Cardizem started and stopped this admission
Cont Eliquis 2.5 mg BID
Torsemide increased to 40 mg BID
Cardiology f/u arranged
Called and talked to daughter while in room with patient
Impression / Plan
-
PCP: Dr. Wolfe
Linux Architect: Dr. BE Diaz
Impression:
Presented with SOB, weight gain 12/30/24
Acute on chronic HFpEF, proBNP 15,500
Atrial fibrillation with RVR
Paroxysmal atrial fibrillation
Chronic Eliquis anticoagulation
Esophageal narrowing 01/01/2025 on DAISHA, unable to proceed with DAISHA
Hyponatremia
CAD
BMS to LCx 2011
Chronically occluded mid RCA by cath 01/14/2019
HTN
HLD
CKD 3b
Chronic anemia
GERD
h/o prostate cancer s/p XRT
Chronic suprapubic catheter
DNR code status
Echo 02/07/2023: EF 65%, mod cLVH, grade I DD, mild MR, trace TR
Echo 05/01/2024: EF 55%, mild cLVH, mild with peak/mean gradients 16/8 mmHg, mild TR, estimated PAP 30-35 mmHg
Echo 12/31/2024: TDS: EF 55 to 60%. Mild concentric LVH. Aortic sclerosis without stenosis. Mild TR with PAP 35 mmHg
Plan:
-Current plan and meds reviewed with hospitalist attending who then called patient's daughter. I also called patient's daughter from the patient's room on 01/06/25 and reviewed plans for outpatient cardiology visit in 2 weeks, then likely CV a week
after that and then follow up with Dr. Diaz after that. Daughter is in agreement with plan.
-DAISHA deferred due to being a blind procedure.
-Patient had upper endoscopy 01/04/25 and patient with multiple plaques, small hiatal hernia and there was narrowing at 30 cm but GI provider saw movement and suspect vessel/heart which on MRI there was no mass that was causing extrinsic compression.
-Current plan is for 3 additional weeks of OAC and then perform elective outpatient CV.
-Patient with known paroxysmal Afib and was in Afib with RVR 12/30/24 during cardiology office visit.
-Outpatient dose of Toprol XL increased to 100 mg BID this admission, but patient became hypotensive and so dose lowered back to 50 mg BID at time of d/c.
-Initially on Cardizem gtt and then ordered Cardizem CD 120 mg daily, but stopped due to bradycardia and hypotension.]
-Patient loaded with amiodarone 200 mg TID and then BID this admission and received a 3 gram load as of 01/06/25. Will d/c to home on amiodarone 200 mg BID for 2 weeks and then once daily thereafter. I e-scribed two different Rx to patient's pharmacy
to avoid confusion.
-QTc 508 ms on ECG 12/3024. Potassium 4.1 on 01/06/25 labs reviewed by me.
-Cont Eliquis 2.5 mg BID (age 84, Cre 2.2). Patient was taking Eliquis daily instead of BID prior to admission
-Peak weight 186 lbs this admission and weight is down to 180 lbs on 01/06/25. Initially diuresed with Lasix IV, but then developed worsening MARIE. Lasix IV now stopped and Nephrology following. Cre stable at 2.2 on labs reviewed by me 01/05/25.
Nephrology is recommending torsemide 40 mg BID at time of d/c
-EF preserved on echo 12/31/24
-Toprol XL as noted above
-Will not start LINDA/ARB/ARNI/aldosterone antagonist due to MARIE on CKD 3b
-Will not add SGLT-2 with chronic suprapubic catheter in place.
-Called and talked to patient's daughter 01/06/25 as noted above.
HPI: Patient presented to cardiology office today with complaints of shortness of breath, wheezing, cough, worsening lower extremity edema, weight gain as well as palpitations and tachycardia. EKG in office showed atrial fibrillation with rapid
ventricular response and was noted to be hypotensive with blood pressure of 102/56. He reportedly had shingles vaccination on 12/20, and afterwards developed noted symptoms as well as swollen face. Daughter had called the office on 12/28 due to
symptoms and was initially instructed to take patient to the ER, however they declined and he was recommended 2 extra doses of torsemide 20 mg, with last increased dose yesterday. Despite some weight loss, he had worsening shortness of breath. He
was brought to ER from [facility] office. Reportedly he has not been taking his Eliquis twice daily due to prior hematuria.
Progress Note - Linux Architect
Subjective
Date of Service: January 06, 2025
Denies pain
Objective
Labs:
01/06/25 04:33
01/06/25 04:33
Labs
Hgb 10.5 g/dL (13.0-18.0) L 01/06/25 04:33
Hct 29.5 % (39.0-52.0) L 01/06/25 04:33
Plt Count 228 10^3/uL (130-400) 01/06/25 04:33
APTT 81.8 Sec (23.4-35.0) H 01/03/25 22:52
Sodium 138 mmol/L (135-145) 01/06/25 04:33
Potassium 4.1 mmol/L (3.5-5.1) 01/06/25 04:33
BUN 51 mg/dl (9-20) H 01/06/25 04:33
Creatinine 2.0 mg/dL (0.7-1.3) H 01/06/25 04:33
Glucose 137 mg/dl (70-99) H 01/06/25 04:33
Vital Signs and I&O:
Vital Signs
Temp Pulse Resp BP Pulse Ox
98.3 F 81 16 119/59 97
01/06/25 07:34 01/06/25 08:16 01/06/25 07:34 01/06/25 08:16 01/06/25 07:34
Vital Signs
Temp Pulse Resp BP Pulse Ox
98.3 F 81 16 119/59 97
01/06/25 07:34 01/06/25 08:16 01/06/25 07:34 01/06/25 08:16 01/06/25 07:34
Intake & Output
01/04/25 01/05/25 01/06/25 01/07/25
06:59 06:59 06:59 06:59
Intake Total 480 / 480
Output Total 2700 / 2700 3525 / 3525 2700 / 2700
Balance -2700 / -2700 -3525 / -3525 -2220 / -2220
Physical Exam
Physical Exam
GEN: NAD. AAOx3
HEENT: EOMI, MMM
LUNGS: RA. No audible wheeze
CV: Afib on tele, rate controlled. Irreg irreg
ABD: ND
EXT: +1 B/L LE edema
NEURO: Gross non-focal
SKIN: No rash
[2025-01-06] MEDS: DEMADEX 40 MG PO ×2 (10:45→17:21)
--- NOTE | 2025-01-06 11:06 | W.DS.TRANS ---
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
-
Discharge Instructions:
Sleep Apnea Risk High
Discharge Diagnosis/Procedures Acute CHF preserved EF.
Atrial fibrillation with rapid ventricular
response.
CAD
Hypertension
Dyslipidemia
Chronic kidney disease stage IIIb per
Anemia of chronic disease.
Chronic suprapubic catheter.
History of prostate carcinoma.
Diet 2 Gram Sodium
Others Tests You need to get an MRI of the kidneys as there
is a right renal mass 3.4 cm
Other Services VN
Specialty Instructions Weigh Daily
Instructions: *[facility] Heart Failure Instructions
Stand-Alone Forms:
Changes to Home Medications: Yes
Discharge Medications:
DC Medications w/original date entered in [employer]
apixaban 2.5 mg tablet (Eliquis) 2.5 mg PO BID Blood Clot Prevention/Tx 04/30/24
cholecalciferol (vitamin D3) 25 mcg (1,000 unit) capsule (Vitamin D3) 50 mcg PO DAILY Supplement 04/30/24
cranberry extract 157.5 [id number]-[id number] 500 mg capsule 1 cap PO QPM Supplement ##0 04/30/24
cyanocobalamin (vitamin B-12) 1,000 mcg tablet 1,000 mcg PO DAILY Supplement 04/30/24
diclofenac sodium 1 % topical gel 1 ea topical DAILYPRN PRN all joints 04/30/24
epoetin gila 40,000 unit/mL injection solution (Procrit) 40,000 unit SC Q3W RED BLOOD CELLS 04/30/24
fluticasone propionate 50 mcg/actuation nasal spray,suspension 2 spray intranasal BID Lung/Breathing Issues 04/30/24
ipratropium bromide 17 mcg/actuation HFA aerosol inhaler (Atrovent HFA) 2 puff inhalation R QPM Lung/Breathing Issues 04/30/24
ketoconazole 2 % topical cream 1 applic topical BIDPRN PRN b/l feet 04/30/24
melatonin 5 mg tablet 5 mg PO HS Sleep 04/30/24
pantoprazole 40 mg tablet,delayed release 40 mg PO DAILY Gastrointestinal Issue 04/30/24
phenolphthalein-docusate sodium 90 mg-83 mg capsule 1 cap PO DAILYPRN PRN constiaption ##0 04/30/24
polyethylene glycol 3350 17 gram oral powder packet (Miralax) 17 g PO DAILYPRN PRN constipation 04/30/24
propylene glycol-glycerin 0.6 %-0.6 % eye drops in a dropperette (Soothe Lubricant) 1 drp ophthalmic (eye) BIDPRN PRN both eyes 04/30/24
atorvastatin 10 mg tablet 10 mg PO QPM #30 tabs 05/11/24
ferrous sulfate 325 mg (65 mg iron) tablet (FeroSul) 325 mg PO DAILY #30 tabs 05/11/24
isosorbide dinitrate 10 mg tablet 10 mg PO BID #30 tabs 05/11/24
metoprolol succinate 50 mg tablet,extended release 24 hr 50 mg PO BID #30 tabs 05/11/24
sennosides 8.6 mg-docusate sodium 50 mg tablet 2 tab PO BID Constipation 12/30/24
amiodarone 200 mg tablet 200 mg PO BID Arrhythmia #28 tabs 01/06/25
amiodarone 200 mg tablet 200 mg PO DAILY Arrhythmia #30 tabs 01/06/25
nystatin 100,000 unit/mL oral suspension 5 ml PO QID #500 mL 01/06/25
torsemide 20 mg tablet 40 mg (2 x 20 mg) PO BID@0800,1600 Heart Failure #60 tabs 01/06/25
Home Medication Changes
Amiodarone initiated
Pending Results: No
--- NOTE | 2025-01-06 12:00 | CM ---
Reviewed chart. Met with Mr. Franklin to review discharge plans. Spoke with daughter via phone in his room. [facility] are agreeable to their services for RN and P.T. Telephone call to [facility] to let them k now about discharge date and P.T. Prior to admission he resides with his spouse in a first floor condo with nine steps to enter. Prior to admission he ambulates with a walker or single point cane. 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
seven days a week from 10:00 a.m. to 9:00 p.m. He has a prescription plan. Medical work-up in progress. The discharge plan is to return home with his spouse, [employer]CHNICIAN and [facility] when medically stable.
[2025-01-06] MEDS: MYCOSTATIN ORAL SUSPENSION 5 ML PO ×2 (14:21→17:23)
[2025-01-06] MEDS: LIPITOR 10 MG PO (17:20)
--- NOTE | 2025-01-06 18:39 | PTCARENOTE ---
~[id number]: Handoff report received from nightshift RN. Pt AOx4, Afib 80s-90s on tele. SBP 90s-120s, RA satting high 90s. Pt denies pain at this time. Oral care done independently. Pt standby assist with walker. Suprapubic catheter in placed
draining yellow urine with sediment. At home compression stockings applied. Pt OOB to chair for breakfast. Weight obtained. All needs met at this time, call rao within reach.
~[id number]: Pt OOB in chair. Pt worked with PT and walked with walker in halls and back to room. All needs met at this time, call rao within reach.
~[id number]: pt OOB in chair. VSS. Discharge instructions explained to patient and daughter, all questions answered. IV and tele removed. Patient wheeled down to main lobby in wheelchair by staff.
--- NOTE | 2025-01-08 10:06 | W.HF.CON ---
Heart Failure
- LV Function
Left ventricular function study result: LV Ejection fraction >/= 50%
Ejection Fraction Percentage: 55-60
- ARNI
Patient already on ARNI: No
Heart Failure ARNI Not Indicated: LV Ejection Fraction >/= 40%
- ACEI/ARB
Patient already on ACEI/ARB: No
Heart Failure ACEI/ARB Not Indicated: LV Ejection Fraction > 40%
- Beta Aiden
Patient already on Evidence Based Beta Aiden: Yes
- Mineralocorticord Receptor Antagonist
Patient already on MRA: No
Heart Failure MRA Not Indicated: LV Ejection Fraction > 40%
- SGLT-2 Inhibitor
Patient already on SGLT-2 Inhibitor: No
Heart Failure SGLT-2 Inhibitor Contraindication: Patient Refusal
- Afib Anticoagulation
Patient already on Anticoagulation for Afib: Yes
- NYHA CHF Classification
NYHA CHF Classification Level: Class III - Symptoms w/ min exertion, interferes w/ nml daily activity
- ACC/AHA Stage
ACC/AHA Stage: Stage C: Symptomatic Heart Failure
== END 2025-01-06 19:28 | disposition home health service (06) | DRG 291 ==
LOC: IVU 18:17
PROVIDERS: Internal Medicine Cardiovascular Disease; Nuclear Medicine Nuclear Cardiology; Physician Assistant Medical; Registered Nurse; ADMITTING PHYSICIAN Hospitalist; ATTENDING PHYSICIAN Internal Medicine; CONSULT PHYSICIAN Internal Medicine Gastroenterology; CONSULT PHYSICIAN Specialist; EMERGENCY PHYSICIAN Student in an Organized Health Care Education/Training Program; FAMILY PHYSICIAN Family Medicine
PROC: 0DB68ZX Excision of Stomach, Via Natural or Artificial Opening Endoscopic, Diagnostic (ICD-10-PCS; 2025-01-04)
PROC: 0DB18ZX Excision of Upper Esophagus, Via Natural or Artificial Opening Endoscopic, Diagnostic (ICD-10-PCS; 2025-01-04)
PROC: 0DB98ZX Excision of Duodenum, Via Natural or Artificial Opening Endoscopic, Diagnostic (ICD-10-PCS; 2025-01-04)
DX: I13.0 Hypertensive heart and chronic kidney disease with heart failure and stage 1 through stage 4 chronic kidney disease, or unspecified chronic kidney disease (principal); I50.33 Acute on chronic diastolic (congestive) heart failure; N17.9 Acute kidney failure, unspecified; B37.81 Candidal esophagitis; E87.1 Hypo-osmolality and hyponatremia; N18.32 Chronic kidney disease, stage 3b; Z79.01 Long term (current) use of anticoagulants; I25.10 Atherosclerotic heart disease of native coronary artery without angina pectoris; E78.00 Pure hypercholesterolemia, unspecified; D63.1 Anemia in chronic kidney disease; K21.9 Gastro-esophageal reflux disease without esophagitis; Z85.46 Personal history of malignant neoplasm of prostate; M48.00 Spinal stenosis, site unspecified; M19.90 Unspecified osteoarthritis, unspecified site; Z86.718 Personal history of other venous thrombosis and embolism; Z66 Do not resuscitate; K44.9 Diaphragmatic hernia without obstruction or gangrene; N28.89 Other specified disorders of kidney and ureter; I48.0 Paroxysmal atrial fibrillation; Z95.5 Presence of coronary angioplasty implant and graft; Z85.51 Personal history of malignant neoplasm of bladder; Z93.59 Other cystostomy status; Z92.3 Personal history of irradiation; Z87.11 Personal history of peptic ulcer disease; Z86.0100 Personal history of colon polyps, unspecified; D17.5 Benign lipomatous neoplasm of intra-abdominal organs; Z79.899 Other long term (current) drug therapy; G47.00 Insomnia, unspecified; I87.2 Venous insufficiency (chronic) (peripheral); Z91.199 Patient's noncompliance with other medical treatment and regimen due to unspecified reason; Z11.52 Encounter for screening for COVID-19
CPT/HCPCS: 88305; 71045; 71552; 74221; 80048; 80053; 82607; 82728; 83540; 83550; 83735; 83880; 84443; 84484; 85025; 85027; 85730; 87070; 87147; 87502; 87811; 88342; 92610; 93005; 93306; 93312; 94640; 96361; 96374; 96375; 97116; 97162; 97530; 99284; A9575; Q5106